=== PATIENT | female | born 1985 | race Hispanic/Latino ===

== ENCOUNTER → 2020-02-29 11:19 | Outpatient (CLI) | payer OTHER, SELFPAY ==
[2020-03-01 20:31] LABS: COVID19 Sendout Not Detected (Not Detect)
== END ==
PROVIDERS: PCP Family Medicine; Visit Provider Nurse Practitioner
DX: Z11.59 Encounter for screening for other viral diseases (principal)
CPT/HCPCS: 87635

== ENCOUNTER 2020-03-03 08:56 | Day surgery (SDC) | payer OTHER, SELFPAY ==
--- NOTE | 2020-03-03 | PATH_ITS ---
[facility] Accession Number: [id number] . 01 Material submitted: . PART A: small bowel - SMALL BOWEL PART B: gastrointestinal site - GASTRIC . 02 Diagnosis: A. Small Bowel: Patchy, mild intraepithelial lymphocytes (up to approximately 10 lymphocytes per 100 enterocytes); nonspecific. Please see comment. . B. Gastric: Gastric antral and body-type mucosa with mild chronic active gastritis. Negative for Helicobacter organisms by immunohistochemistry. Negative for intestinal metaplasia. Negative for dysplasia and malignancy. [facility] 03/05/2020 1448 Local . 02 Comment: A. While sections demonstrate patchy intraepithelial lymphocytosis, the numbers of lymphocytes are insufficient for a histomorphologic diagnosis of celiac sprue. There is no evidence of active inflammation, granulomas, regions of dysplasia or malignancy. . 02 Electronically signed: . Mona Espino MD, Pathologist NPI- [id number] . 01 Gross description: . Part A: SMALL BOWEL: Received in formalin are 2 fragment(s) of sargent, soft tissue measuring 0.1 x 0.1 x 0.1 cm to 0.2 x 0.2 x 0.1 cm submitted entirely in 1 cassette(s) Part B: GASTRIC: Received in formalin are 2 fragment(s) of sargent, soft tissue measuring 0.1 x 0.1 x 0.1 cm to 0.2 x 0.2 x 0.2 cm submitted entirely in 1 cassette(s) /SURYA 03/04/2020 0158 Local . 02 Microscopic: . B. An immunohistochemical stain was performed to evaluate for Helicobacter organisms and is negative. The control stain showed appropriate reactivity. . * This test was developed and its performance characteristics determined by [employer]. It has not been cleared or approved by the U.S. Food and Drug Administration. The FDA has determined that such clearance or approval is not necessary. This test is used for clinical purposes. It should not be regarded as investigational or for research. . 02 Pathologist provided ICD-10: K29.70 . 02 CPT . 977805, 847258, S24050 Performed at: 01 [facility] [address] [id number] MD Baltazar Rosas MD Phone: [phone] Performed at: 02 [facility] [address] [place] [id number] MD Odalys Coronado MD Phone: [phone]
[2020-03-03 09:37] VITALS: BP 106/69; PULSE 83; RESP 16; TEMP 36.6; O2SAT 98; BMI 29.4
[2020-03-03] MEDS: fentaNYL 250 MCG/5 ML INJ IV (10:27)
[2020-03-03] MEDS: MIDAZOLAM 5 MG/5 ML VIAL IV ×7 (10:27→10:36)
--- NOTE | 2020-03-03 10:30 | PM.HP.1 ---
History of Present Illness History of Present Illness Date Patient Seen: 03/03/20 Time Patient Seen: 10:30 Chief complaint: EGD W/POSS BX W/REFLUX Narrative: Reflux diarrhea and bloating rule out esophagitis rule out celiac disease Patient History Family & Social History Social History: household members spouse Tobacco & Substance use: Smoking Status Never smoker alcohol intake frequency holiday/special occasion Substance Use Type does not use Meds Home Medications and Allergies Home Medications Medication Instructions Recorded Confirmed Type esomeprazole magnesium [Nexium] 40 mg PO DAILY 03/03/20 03/03/20 History fluticasone propionate [Flonase 2 spray INTRANASAL DAILY 03/03/20 03/03/20 History Allergy Relief] Allergies Allergy/AdvReac Type Severity Reaction Status Date / Time No Known Drug Allergies Allergy Verified 03/03/20 09:35 Exam Vital Signs (past 8 hours): - 03/03/20 09:37 Temperature 97.9 F Pulse Rate 83 Respiratory Rate 16 Blood Pressure 106/69 Pulse Oximetry 98 Oxygen Delivery Method Room Air Narrative Exam Narrative: Oropharynx free of lesions Chest clear to auscultation percussion Cardiac exam reveals no S3 or murmur Assessment & Plan Assessment & Plan narrative: History of reflux loose stools and bloating related GE reflux disease with ulceration rule out celiac disease. Risks, benefits, alternatives have been explained for an upper endoscopy.
--- NOTE | 2020-03-03 10:32 | PM.OP.ENDO ---
Operative Date/Time/Diagnoses Date of procedure: 03/03/20 Time of procedure: 10:32 Pre-op diagnosis: See indication and findings Procedure & Clinicians Study performed: EGD with biopsy Same procedure as scheduled: Yes Indications: G reflux and loose stools Surgeon: Jason Johnson Procedure Notes Procedure in detail: After informed consent was obtained the patient was placed in left lateral decubitus position. The video upper scope was placed into the oropharynx and with the patient's help swelled the esophagus. The esophagus stomach and duodenum were carefully examined. On withdrawal retroflexed view the GE junction was performed. The scope was removed. The patient tolerated procedure well. Blood loss none Complications none Sedation Total sedation time 12 minutes Versed 8 mg fentanyl 100 mg IV titration Findings 1. Normal esophagus with completely normal squamocolumnar junction 2. Mild gastric erythema biopsies taken to rule out Helicobacter 3. Normal duodenal bulb and sweep biopsies taken to rule out celiac. Patient should follow-up at least by telephone with Maira Zavala to review biopsies.
[2020-03-03 10:44] VITALS: BP 107/69; PULSE 101; RESP 16; TEMP 36.9; O2SAT 95
[2020-03-03 10:49] VITALS: BP 95/48; PULSE 99; RESP 14; TEMP 36.9; O2SAT 95
[2020-03-03 10:53] VITALS: BP 106/67; PULSE 95; RESP 15; TEMP 36.8; O2SAT 96
[2020-03-03 11:00] VITALS: BP 106/73; PULSE 98; RESP 22; TEMP 36.6; O2SAT 97
[2020-03-03 11:10] VITALS: BP 97/67; PULSE 90; RESP 16; TEMP 36.9; O2SAT 97
== END 2020-03-03 11:25 | disposition home or self-care (01) ==
PROVIDERS: PCP Family Medicine; Referring Provider Family Medicine; Visit Provider Internal Medicine Gastroenterology
PROC: 0DJ08ZZ Inspection of Upper Intestinal Tract, Via Natural or Artificial Opening Endoscopic (ICD-10-PCS; CPT 43235; principal; 2020-03-03 10:00)
DX: R19.7 Diarrhea, unspecified (principal); K21.9 Gastro-esophageal reflux disease without esophagitis; K29.50 Unspecified chronic gastritis without bleeding
CPT/HCPCS: 43239; J2250; J3010

== ENCOUNTER → 2020-07-12 13:48 | Outpatient (CLI) | payer OTHER, SELFPAY ==
[2020-07-12 15:34] LABS: COVID19 -Nasal RAPID Negative (Negative)
== END ==
PROVIDERS: PCP Family Medicine; Visit Provider Physician Assistant
DX: Z11.59 Encounter for screening for other viral diseases (principal)
CPT/HCPCS: 87635; C9803

== ENCOUNTER 2020-07-14 09:28 | Day surgery (SDC) | payer OTHER, SELFPAY ==
[2020-07-14] VITALS (7 sets, daily range): BP systolic 92–116; BP diastolic 58–73; PULSE 90–113; RESP 15–20; TEMP 36.3–37; O2SAT 97–100; BMI 29.2
--- NOTE | 2020-07-14 | PATH_ITS ---
[facility] Accession Number: [id number] . 01 Material submitted: . colon - RANDOM BIOPSIES . 02 Diagnosis: Random Colon, Biopsies: Colonic mucosa with no diagnostic abnormality. Negative for active, chronic, and microscopic colitis. Negative for dysplasia and malignancy. . [facility] 07/19/2020 1215 Local . 02 Electronically signed: . Odalys Coronado MD, Pathologist NPI- [id number] . 01 Gross description: . RANDOM BIOPSIES: Received in formalin are multiple fragment(s) of sargent, soft tissue measuring 1.0 x 0.7 x 0.2 cm in aggregate submitted entirely in 1 cassette(s) /QBJ 07/15/2020 0815 Local . 02 Pathologist provided ICD-10: R19.7 . 02 CPT . 736007 Performed at: 01 [facility] [address] [id number] MD Baltazar Rosas MD Phone: [phone] Performed at: 02 [facility] [address] [place], [place] [id number] MD Odalys Coronado MD Phone: [phone]
[2020-07-14] MEDS: SODIUM CHLORIDE 0.9% 1,000 ML 70 ML IV (10:00)
--- NOTE | 2020-07-14 11:00 | PM.HP.1 ---
History of Present Illness History of Present Illness Date Patient Seen: 07/14/20 Time Patient Seen: 10:55 Chief complaint: DX COLONOSCOPY Narrative: Patient is a very pleasant 34-year-old female who presented for colonoscopy. She was last evaluated on July 05, 2020 for diarrhea. She states her symptoms have improved somewhat with fiber supplementation but she continues to have breakthrough symptoms. Patient History Family & Social History Social History: household members spouse Tobacco & Substance use: Smoking Status Never smoker alcohol intake frequency holiday/special occasion Substance Use Type does not use Meds Home Medications and Allergies Home Medications Medication Instructions Recorded Confirmed Type esomeprazole magnesium [Nexium] 40 mg PO DAILY 03/03/20 03/03/20 History fluticasone propionate [Flonase 2 spray INTRANASAL DAILY 03/03/20 03/03/20 History Allergy Relief] Allergies Allergy/AdvReac Type Severity Reaction Status Date / Time No Known Drug Allergies Allergy Verified 03/03/20 09:35 Review of Systems Review of Systems ROS: Yes All systems reviewed with the patient and are negative except as otherwise documented Exam Vital Signs (past 8 hours): - 07/14/20 09:56 Temperature 97.3 F L Pulse Rate 106 H Respiratory Rate 20 Blood Pressure 116/73 Pulse Oximetry 98 Oxygen Delivery Method Room Air Const General: cooperative, healthy appearing, comfortable, well developed and well groomed Nutritional Appearance: average body habitus HENMT Head: normocephalic and atraumatic Resp Effort & Inspection: normal respiratory effort, able to speak in complete sentences and abnormal respiratory pattern Auscultation: clear to auscultation bilaterally Cardio Rate: regular rate Rhythm: regular rhythm Heart Sounds: S1 normal and S2 normal GI Palpation: soft Auscultation: normal bowel sounds Extrem Right lower extremity: no edema Left lower extremity: no edema Assessment & Plan Assessment & Plan narrative: 1. Diarrhea Colonoscopy today, further recommendations to follow
[2020-07-14] MEDS: MIDAZOLAM 5 MG/5 ML VIAL IV (11:09)
[2020-07-14] MEDS: fentaNYL 250 MCG/5 ML INJ IV (11:18)
--- NOTE | 2020-07-14 11:36 | P.OP.ENDO_ITS ---
Operative Date/Time/Diagnoses Date of procedure: 07/14/20 Time of procedure: 11:03 Procedure Notes Procedure in detail: Surgeon: Chantale Aguiar DO Procedure: Colonoscopy with random colon biopsy Preoperative diagnosis: 1. Diarrhea Postoperative diagnosis: 1. Normal appearing colonic mucosa, random biopsies to rule out microscopic colitis 2. Normal-appearing terminal ileum 3. Diverticulosis in the sigmoid and ascending colon 4. Grade 1 internal hemorrhoids Medications: Conscious sedation using 5 mg IV of Midazolam and 175 mcg IV of Fentanyl Preanesthesia Assessment An H and P was performed/updated and the Px?s ASA class is 1. The procedure was discussed in detail with the patient. The potential risks and complications including infection, bleeding, missed lesions, perforation, need for surgery in case of perforation, prolonged hospital stay, and were explained. A brief question and answer period was allotted and once all questions were answered, informed consent was obtained. The patient was brought back to the procedure room and placed on standard monitoring. The patient?s vital signs were monitored continuously throughout the entire procedure. Prior to starting, a timeout was performed to confirm the patient?s identity, allergies, medications, and procedure. Procedure in detail The patient was placed in left lateral decubitus position and once adequate sedation was obtained a OLAYINKA was performed. The digital rectal examination did not reveal any palpable lesions. The tip of the colonoscope was placed in the anal canal and advanced with some difficulty due to tortuous colon, manual pressure was applied. We were able to advance the scope all the way to the cecum which was identified by the appendiceal orifice and the ileocecal valve. The terminal ileum was intubated and was unremarkable. Careful examination of all paul of the colon was performed with irrigation of any residual stool. Colon mucosa appeared unremarkable, random colon biopsies were obtained to rule out microscopic colitis Diverticulosis were noted scattered throughout the sigmoid and ascending colon. Grade 1 internal hemorrhoids were noted on retroflexion The patient tolerated the procedure well and will be [place] back [place] [facility] once criteria are met. The prep was judged to be good/excellent and adequate to identify polyps less than 5 mm. The withdrawal time was 11min. The total physician intraservice time was 23min. Complications There were no complications and estimated blood loss was minimal. Recommendations: Resume previous diet Continue outPx medications Follow up pathology results Repeat colonoscopy for screening in 10 years Office follow up as previously scheduled An emergency contact number was given to the patient for any complications related to the procedure
--- NOTE | 2020-07-14 12:09 | SUR.PHASEII ---
Pt up and ambulating gait steady, getting dressed now.
--- NOTE | 2020-07-14 15:05 | SUR.PHASEII ---
1205-Pt dcd via wc in stable condition with no c/o and all dc instructions.
== END 2020-07-14 12:05 | disposition home or self-care (01) ==
PROVIDERS: PCP Family Medicine; Referring Provider Student in an Organized Health Care Education/Training Program; Visit Provider Student in an Organized Health Care Education/Training Program
PROC: 0DJD8ZZ Inspection of Lower Intestinal Tract, Via Natural or Artificial Opening Endoscopic (ICD-10-PCS; CPT 45378; principal; 2020-07-14 10:30)
DX: R19.7 Diarrhea, unspecified (principal); K57.30 Diverticulosis of large intestine without perforation or abscess without bleeding; K64.0 First degree hemorrhoids
CPT/HCPCS: 45378; J2250; J3010

== ENCOUNTER 2021-01-10 09:45 | Emergency (ER) | payer OTHER, SELFPAY ==
[2021-01-10 10:18] VITALS: BP 119/63; PULSE 85; RESP 14; TEMP 36.4; O2SAT 89
[2021-01-10 14:35] LABS: Add Manual Diff / Slide Review NO; Basophils Absolute Auto 100 /uL (0-100); Basophils Percent Auto 0.7 % (0-2); Eosinophils Absolute Auto 0 /uL (0-450); Eosinophils Percent Auto 0.2 % (2-4); Hematocrit 40.5 % (36-46); Hemoglobin 13.2 g/dL (12.0-16.0); Lymphocytes Absolute Auto 2600 /uL (1100-4500); Lymphocytes Percent Auto 25.1 % (25-40); Mean Corpuscular HGB Conc 32.7 % (30-36); Mean Corpuscular Hemoglobin 27.2 PG (26-34); Mean Corpuscular Volume 83.2 fL (80-100); Monocytes Absolute Auto 500 /uL (0-900); Monocytes Percent Auto 4.7 % (3-14); Neutrophils Absolute Auto 7300 /uL (1500-7000); Neutrophils Percent Auto 69.3 % (50-75); Platelet Count 403 X10^3/uL (150-400); Red Blood Cell Count 4.87 X10^6/uL (4.0-5.2); White Blood Cell Count 10.5 X10^3/uL (4.5-11.0)
[2021-01-10] MEDS: SODIUM CHLORIDE 0.9% 1,000 ML 1000 ML IV (14:50)
[2021-01-10] MEDS: ONDANSETRON 4 MG/2 ML INJ IV (14:50)
[2021-01-10 14:54] LABS: Alanine Aminotransferase 68 IU/L (<35); Albumin 5.2 g/dL (3.5-5.0); Albumin Globulin Ratio 1.3 (1.0-2.8); Alkaline Phosphatase 75 U/L (38-126); Aspartate Aminotransferase 54 IU/L (14-36); BUN Creatinine Ratio 12.5 (6-22); Bilirubin Total 0.7 mg/dL (0.2-1.3); Blood Urea Nitrogen 6 mg/dL (7-17); Calcium 10.4 mg/dL (8.4-10.2); Carbon Dioxide 26 mmol/L (22-32); Chloride 99 mmol/L (98-107); Estimated Glomerular Filt Rate > 60.0 mL/min (>60); Globulin 4.1 g/dL (1.7-4.1); Glucose 101 mg/dL (70-100); HEMOLYSIS < 15 (0-50); Potassium 3.8 mmol/L (3.4-5.1); Sodium 139 mmol/L (137-145); Total Protein 9.3 g/dL (6.3-8.2)
--- NOTE | 2021-01-10 15:56 | ED.NAVMDI ---
HPI - Nausea/Vomiting/Diarrhea General Chief complaint: Nausea/Vomiting/Diarrhea Stated complaint: IBS cant eat Time Seen by Provider: 01/10/21 15:56 Source: patient Mode of arrival: Ambulatory Limitations: no limitations History of Present Illness HPI Narrative: This is a 35-year-old female comes emergency department with complaint of nausea and vomiting as well as diarrhea and abdominal pain that is been intermittent for several months but has been worse for the last several days. Patient states she has been able to keep anything down orally. She denies fevers or chills. She has had nausea and vomiting. She has had diarrhea intermittently denies any melena or hematochezia. She describes her abdominal pain as being more general to but is worse on palpation in the upper abdomen. She denies any back or flank pain. No dysuria, urgency or frequency. No vaginal bleeding or discharge. Patient has had an EGD and scope which she were told were negative except for diverticulosis. They initially thought her diarrhea was from her cholecystectomy but this continued. She has been following with Dr. Robles from [facility] and was taking Metamucil but this would make her diarrheal symptoms worse. Bentyl which was helpful but gave her some side effects so it was stopped. She denies any surgeries besides cholecystectomy. No tobacco, alcohol or illicit. No allergies to medications. Related Data Home Medications Medication Instructions Recorded Confirmed esomeprazole magnesium [Nexium] 40 mg PO DAILY 03/03/20 03/03/20 fluticasone propionate [Flonase 2 spray INTRANASAL DAILY 03/03/20 03/03/20 Allergy Relief] Previous Rx's Medication Instructions Recorded meloxicam 7.5 mg PO BID #20 tab 01/10/21 ondansetron 4 mg PO QID PRN #10 tab 01/10/21 prednisone 50 mg PO DAILY #4 tab 01/10/21 Allergies Allergy/AdvReac Type Severity Reaction Status Date / Time No Known Drug Allergies Allergy Verified 01/10/21 10:23 Review of Systems Review of Systems ROS Unobtainable: All systems reviewed & are unremarkable except as noted in HPI and below Patient History Social History household members: spouse Smoking Status: Never smoker Smoking Status: Never smoker alcohol intake frequency: holidays/special occasions only Substance Use Type: does not use Exam Narrative Exam Narrative: GENERAL: Alert and oriented x three, well nourished female in mild distress. HEENT: Head normocephalic, atraumatic, EOMI, pupils reactive, face symmetric, moist mucous membranes NECK: Supple, full range of motion CARDIOVASCULAR: Regular rate and rhythm without murmurs, rubs or gallops. RESPIRATORY: Breath sounds equal bilaterally, no wheezes rales or rhonchi. ABDOMEN: Soft, generalized tenderness greatest at the epigastric region. Normoactive bowel sounds all 4 quadrants. No guarding or rebound, rigidity, no mass : No CVA tenderness EXTREMITIES: Normal range of motion, no clubbing or edema. Neurovascularly intact NEUROLOGICAL: Cranial nerves II through XII grossly intact. Moving all extremities SKIN: Warm, dry, no petechiae, no rashes or lesions. Initial Vital Signs Initial Vital Signs: Vital Signs Temperature 97.5 F L 01/10/21 10:18 Pulse Rate 85 01/10/21 10:18 Respiratory Rate 14 01/10/21 10:18 Blood Pressure 119/63 01/10/21 10:18 Pulse Oximetry 89 L 01/10/21 10:18 Course Orders Ordered: ED Orders 01/10/21 14:25 Complete Blood Count AUTO DIFF Stat Comprehensive Metabolic Panel Stat Lipase Stat 01/10/21 16:11 CT abdomen pelvis w con Stat Discontinued Medications Sodium Chloride (Normal Saline 0.9%) 1,000 mls @ 1,000 mls/hr IV BOLUS ONE Stop: 01/10/21 13:19 Last Infusion: 01/10/21 15:55 Dose: 0 mls/hr Documented by: Admin: 01/10/21 14:50 Dose: 1,000 mls/hr Documented by: ORIANA Ondansetron HCl (Ondansetron 4 Mg/2 Ml Inj) 4 mg IV NOW ONE Stop: 01/10/21 12:21 Last Admin: 01/10/21 14:50 Dose: 4 mg Documented by: ORIANA Prednisone (Prednisone 20 Mg Tablet) 60 mg PO NOW ONE Stop: 01/10/21 18:00 Last Admin: 01/10/21 18:06 Dose: 60 mg Documented by: ORIANA Vital Signs Vital signs: Vital Signs - 8 hr 01/10/21 16:11 Temperature 99.1 F Pulse Rate 85 Respiratory Rate 16 Blood Pressure 134/63 Pulse Oximetry 99 MDM - Nausea/Vomiting/Diarrhea Lab Data Attestation: I reviewed the patient's lab results. Result diagrams: 01/10/21 14:25 01/10/21 14:25 Labs: Lab Results 01/10/21 01/10/21 01/10/21 Range/Units 14:25 14:25 14:25 WBC 10.5 (4.5-11.0) X10^3/uL RBC 4.87 (4.0-5.2) X10^6/uL Hgb 13.2 (12.0-16.0) g/dL Hct 40.5 (36-46) % MCV 83.2 (80-100) fL MCH 27.2 (26-34) PG MCHC 32.7 (30-36) % RDW 14.0 (11.6-14.8) % Plt Count 403 H (150-400) X10^3/uL Neut % (Auto) 69.3 (50-75) % Lymph % (Auto) 25.1 (25-40) % [place] % (Auto) 4.7 (3-14) % Eos % (Auto) 0.2 L (2-4) % Baso % (Auto) 0.7 (0-2) % Neut # (Auto) 7300 H (9965-7411) /uL Lymph # (Auto) 2600 (9111-0027) /uL [place] # (Auto) 500 (0-900) /uL Eos # (Auto) 0 (0-450) /uL Baso # (Auto) 100 (0-100) /uL Sodium 139 (137-145) mmol/L Potassium 3.8 (3.4-5.1) mmol/L Chloride 99 (98-107) mmol/L Carbon Dioxide 26 (22-32) mmol/L BUN 6 L (7-17) mg/dL Creatinine 0.48 L (0.52-1.04) mg/dL Estimated GFR > 60.0 (>60) mL/min BUN/Creatinine Ratio 12.5 (6-22) Glucose 101 H (70-100) mg/dL Calcium 10.4 H (8.4-10.2) mg/dL Total Bilirubin 0.7 (0.2-1.3) mg/dL AST 54 H (14-36) IU/L ALT 68 H (<35) IU/L Alkaline Phosphatase 75 (38-126) U/L Total Protein 9.3 H (6.3-8.2) g/dL Albumin 5.2 H (3.5-5.0) g/dL Globulin 4.1 (1.7-4.1) g/dL Albumin/Globulin Ratio 1.3 (1.0-2.8) Lipase 41 (23-300) U/L Point of Care Testing Test Results Negative Urine Dip Bedside Urine Glucose Negative Bedside Urine Bilirubin - Negative Bedside Urine Ketone - Negative Urine Specific [place] 1.010 Bedside Urine Occult Blood +/- Bedside Urine pH 6.5 Bedside Urine Protein - Negative Bedside Urine Urobilinogen - Negative Bedside Urine Nitrite - Negative Bedside Urine Leukocytes - Negative Esterase Imaging Data CT scan - abdomen/pelvis: Radiologist's Impression: [address] [id number] Scan ReportSigned Patient: Radha Macedo [facility]#: [id number]: 1985Acct:[id number]/Sex: 35 / FDate of Service: 01/10/21Loc: EDAccession Number: [id number] Procedure: CT abdomen pelvis w con Ordering Provider: Lena Tracey D.O. ROCEDURE: CT ABDOMEN PELVIS W CON INDICATIONS: acute on chronic abd pain. hx diverticulosis on scope TECHNIQUE: After the administration of intravenous contrast, axial sections acquired from the lung bases to the pubic symphysis. Coronal and sagittal reformats were performed. For radiation dose reduction, the following was used: automated exposure control, adjustment of mA and/or kV according to patient size. COMPARISON: None. FINDINGS: Image quality: Excellent. Lung bases: Unremarkable. Heart: No significant findings. ABDOMEN: Liver: There is diffuse hypoattenuation consistent with fatty infiltration with mild relative sparing along the gallbladder fossa. Gallbladder: Surgically absent. Biliary ducts: Unremarkable. Pancreas: Unremarkable. Spleen: Unremarkable. Adrenal Glands: Unremarkable. Kidneys and Ureters: Unremarkable. Stomach and Bowel: Stomach and small bowel loops demonstrate normal caliber and wall thickness. No evidence of appendicitis. There is colonic diverticulosis without definite acute diverticular inflammatory changes to suggest diverticulitis. However, there is mild segmental wall thickening within the descending and sigmoid colon with mild pericolonic fat stranding compatible with a mild colitis. Peritoneum: No abnormal intraperitoneal fluid. No free air. Ventral Wall: No hernias. Abdominal Nodes: No retroperitoneal or mesenteric adenopathy by size criteria. Vessels: Aorta and inferior vena cava are normal in size. PELVIS: Pelvic Organs: There is a right ovarian cyst measuring up to 2.8 cm likely representing a follicular cyst. Uterus and ovaries appear within normal size limits. Bladder: Unremarkable. Pelvic Nodes: No enlarged lymph nodes. Miscellaneous: No hernias are seen. Bones: Unremarkable. IMPRESSION: 1. Mild segmental wall thickening in the descending and sigmoid colon with mild pericolonic fat stranding compatible with a mild colitis. 2. Colonic diverticulosis without definite acute diverticulitis. 3. Hepatic steatosis Dictated by: Baltazar Pan M.D. on 01/10/2021 at 17:13 Approved by: Baltazar Pan M.D. on 01/10/2021 at 17:15 MDM Narrative Medical decision making narrative: This is a 35-year-old female with abdominal pain, nausea and vomiting and diarrhea been intermittent over long period of time but worse over the last several days. Patient has had colonoscopy and EGD in the past which was negative about 9 months ago. This most recent episode of symptoms have only been for few days. Patient came in today because she is unable to keep fluids or food down. Patient does not show major lab abnormalities, after discussion about radiation exposure and risks and benefits patient elects to proceed with CT abdomen pelvis. There does appear to be some colitis on her imaging. After discussion plan for steroids for short-term treatment and re-evaluation with her primary care in the next week for recheck. 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 All questions were answered, prescription for Zofran came a steroid as well as an NSAID medication as patient prefers this over any narcotic pain medicine. Discharge Plan Departure Patient Disposition: Home Clinical Impression: Colitis, Hepatic steatosis Instructions: DI for Colitis Activity Restrictions/Additional Instructions: Follow up with your physician in the next 3-5 days for recheck. Your imaging today shows colitis as well as hepatic steatosis or fatty liver. Take steroids daily until gone. Take zofran every 6 hours as needed for nausea Take pain medication as prescribed. Please return for fevers greater 100.4 F, rapidly worsening abdominal pain, persistent vomiting, black or bloody stools, lightheadedness or passing out, new chest pain or shortness of breath or other new or concerning symptoms. Prescriptions: New prednisone 50 mg tablet 50 mg PO DAILY Qty: 4 RF: 0 meloxicam 7.5 mg tablet 7.5 mg PO BID Qty: 20 RF: 0 ondansetron 4 mg tablet,disintegrating 4 mg PO QID PRN (Reason: nausea and vomiting) Qty: 10 RF: 0 No Action esomeprazole magnesium [Nexium] 40 mg Capsule,Delayed Release(Dr/Ec) 40 mg PO DAILY RF: 0 fluticasone propionate [Flonase Allergy Relief] 50 mcg/actuation Boley,Suspension 2 spray INTRANASAL DAILY RF: 0 Referrals: Colette Girard MD [Primary Care Provider] -
[2021-01-10 16:11] VITALS: BP 134/63; PULSE 85; RESP 16; TEMP 37.3; O2SAT 99
--- NOTE | 2021-01-10 16:11 | DI.CT.S_ITS ---
P. ROCEDURE: CT ABDOMEN PELVIS W CON INDICATIONS: acute on chronic abd pain. hx diverticulosis on scope TECHNIQUE: After the administration of intravenous contrast, axial sections acquired from the lung bases to the pubic symphysis. Coronal and sagittal reformats were performed. For radiation dose reduction, the following was used: automated exposure control, adjustment of mA and/or kV according to patient size. COMPARISON: None. FINDINGS: Image quality: Excellent. Lung bases: Unremarkable. Heart: No significant findings. ABDOMEN: Liver: There is diffuse hypoattenuation consistent with fatty infiltration with mild relative sparing along the gallbladder fossa. Gallbladder: Surgically absent. Biliary ducts: Unremarkable. Pancreas: Unremarkable. Spleen: Unremarkable. Adrenal Glands: Unremarkable. Kidneys and Ureters: Unremarkable. Stomach and Bowel: Stomach and small bowel loops demonstrate normal caliber and wall thickness. No evidence of appendicitis. There is colonic diverticulosis without definite acute diverticular inflammatory changes to suggest diverticulitis. However, there is mild segmental wall thickening within the descending and sigmoid colon with mild pericolonic fat stranding compatible with a mild colitis. Peritoneum: No abnormal intraperitoneal fluid. No free air. Ventral Wall: No hernias. Abdominal Nodes: No retroperitoneal or mesenteric adenopathy by size criteria. Vessels: Aorta and inferior vena cava are normal in size. PELVIS: Pelvic Organs: There is a right ovarian cyst measuring up to 2.8 cm likely representing a follicular cyst. Uterus and ovaries appear within normal size limits. Bladder: Unremarkable. Pelvic Nodes: No enlarged lymph nodes. Miscellaneous: No hernias are seen. Bones: Unremarkable. IMPRESSION: 1. Mild segmental wall thickening in the descending and sigmoid colon with mild pericolonic fat stranding compatible with a mild colitis. 2. Colonic diverticulosis without definite acute diverticulitis. 3. Hepatic steatosis Dictated by: Baltazar Pan M.D. on 01/10/2021 at 17:13 Approved by: Baltazar Pan M.D. on 01/10/2021 at 17:15
[2021-01-10 16:17] LABS: Lipase 41 U/L (23-300)
[2021-01-10] MEDS: predniSONE 20 MG TABLET 60 MG PO (18:06)
== END 2021-01-10 18:12 | disposition home or self-care (01) ==
PROVIDERS: Emergency Provider Emergency Medicine; PCP Family Medicine
DX: K52.9 Noninfective gastroenteritis and colitis, unspecified (principal); K76.0 Fatty (change of) liver, not elsewhere classified; R10.9 Unspecified abdominal pain
CPT/HCPCS: 36415; 74177; 80053; 81003; 81025; 83690; 85025; 96361; 96374; 99284; J2405; Q9967

== ENCOUNTER 2021-01-16 19:51 | Emergency (ER) | payer OTHER, SELFPAY ==
[2021-01-16 20:18] VITALS: BP 119/71; PULSE 87; RESP 18; TEMP 36.7; O2SAT 99; BMI 29.2
[2021-01-16 21:38] VITALS: PULSE 78; O2SAT 100
[2021-01-16 21:57] LABS: Add Manual Diff / Slide Review NO; Basophils Absolute Auto 100 /uL (0-100); Basophils Percent Auto 0.4 % (0-2); Eosinophils Absolute Auto 100 /uL (0-450); Eosinophils Percent Auto 0.7 % (2-4); Hemoglobin 12.5 g/dL (12.0-16.0); Lymphocytes Absolute Auto 3800 /uL (1100-4500); Lymphocytes Percent Auto 30.8 % (25-40); Mean Corpuscular HGB Conc 32.8 % (30-36); Mean Corpuscular Hemoglobin 27.2 PG (26-34); Monocytes Absolute Auto 500 /uL (0-900); Monocytes Percent Auto 3.8 % (3-14); Neutrophils Absolute Auto 7900 /uL (1500-7000); Neutrophils Percent Auto 64.3 % (50-75); Platelet Count 355 X10^3/uL (150-400); Red Blood Cell Count 4.58 X10^6/uL (4.0-5.2); Red Cell Distribution Width 13.8 % (11.6-14.8); White Blood Cell Count 12.3 X10^3/uL (4.5-11.0)
[2021-01-16] MEDS: ONDANSETRON 4 MG/2 ML INJ IV (21:58)
[2021-01-16 22:00] VITALS: PULSE 70; RESP 15; O2SAT 99
[2021-01-16 22:06] LABS: Alanine Aminotransferase 54 IU/L (<35); Albumin 4.4 g/dL (3.5-5.0); Albumin Globulin Ratio 1.4 (1.0-2.8); Alkaline Phosphatase 76 U/L (38-126); Aspartate Aminotransferase 37 IU/L (14-36); BUN Creatinine Ratio 17.2 (6-22); Bilirubin Total 0.7 mg/dL (0.2-1.3); Blood Urea Nitrogen 10 mg/dL (7-17); Calcium 9.6 mg/dL (8.4-10.2); Carbon Dioxide 26 mmol/L (22-32); Chloride 101 mmol/L (98-107); Estimated Glomerular Filt Rate > 60.0 mL/min (>60); Globulin 3.2 g/dL (1.7-4.1); Glucose 93 mg/dL (70-100); HEMOLYSIS < 15 (0-50); Lipase 71 U/L (23-300); Potassium 3.5 mmol/L (3.4-5.1); Sodium 137 mmol/L (137-145); Total Protein 7.6 g/dL (6.3-8.2)
--- NOTE | 2021-01-16 22:18 | ED.ABDPAIN ---
HPI - Abdominal Pain General Chief Complaint: Abdominal Pain Stated Complaint: Abd Pain and Nausea Time Seen by Provider: 01/16/21 21:41 Source: patient Mode of arrival: Family Vehicle Limitations: no limitations History of Present Illness HPI narrative: Patient is a 35-year-old female who presents with ongoing abdominal pain for the last 10 days. She was seen evaluated here 1 week ago where she had a abdominal CT and blood work diagnosed with enteritis. She has had at least 6 episodes of diarrhea today day and few episodes of vomiting. She has ongoing diarrhea from her cholecystectomy but does not typically have pain. She has a GI provider as well. She denies any fever or chills. She has not had any diarrhea in the emergency department does have increased leukocytosis today. MD complaint: abdominal pain Onset (ago): day(s) () Pain Consistency: intermittent Quality: cramping Related Data Home Medications Medication Instructions Recorded Confirmed esomeprazole magnesium [Nexium] 40 mg PO DAILY 03/03/20 03/03/20 fluticasone propionate [Flonase 2 spray INTRANASAL DAILY 03/03/20 03/03/20 Allergy Relief] Previous Rx's Medication Instructions Recorded meloxicam 7.5 mg PO BID #20 tab 01/10/21 ondansetron 4 mg PO QID PRN #10 tab 01/10/21 prednisone 50 mg PO DAILY #4 tab 01/10/21 ciprofloxacin HCl [Cipro] 500 mg PO BID #14 tab 01/16/21 metronidazole [Flagyl] 500 mg PO Q8H #21 tab 01/16/21 Allergies Allergy/AdvReac Type Severity Reaction Status Date / Time No Known Drug Allergies Allergy Verified 01/16/21 20:17 Review of Systems Review of Systems Narrative: GENERAL: Denies chills, fatigue, malaise, fever, sweats, travel HEENT: Denies sinus pain, ear pain, sore throat, difficulty swallowing, neck pain RESPIRATORY: Denies dyspnea, cough, wheezing, hemoptysis, sputum. CARDIOVASCULAR: Denies chest pain, palpitations, orthopnea, edema GASTROINTESTINAL: See HPI : Denies dysuria, frequency, incontinence, hematuria, urinary retention, flank pain. MUSCULOSKELETAL: Denies weakness, joint pain, or bony pain SKIN: No rash, no erythema, no pruritus NEUROLOGIC: Denies weakness, dizziness, headache, numbness, change in speech, confusion PSYCHIATRIC: No concerning psychosocial issues. 12 point review of systems is negative except for those stated above and HPI Patient History Social History household members: spouse Smoking Status: Never smoker Smoking Status: Never smoker alcohol intake frequency: holidays/special occasions only Substance Use Type: does not use Exam Initial Vital Signs Initial Vital Signs: Vital Signs Temperature 98.0 F 01/16/21 20:18 Pulse Rate 87 01/16/21 20:18 Respiratory Rate 18 01/16/21 20:18 Blood Pressure 119/71 01/16/21 20:18 Pulse Oximetry 99 01/16/21 20:18 GENERAL: A 35-year-old female overall appears well. She is having some mild discomfort HEENT: Head atraumatic,EOMI, pupils reactive, face symmetric, moist mucous membranes CARDIOVASCULAR: Regular rate and rhythm without murmurs, rubs or gallops. RESPIRATORY: Breath sounds equal bilaterally, no wheezes rales or rhonchi. ABDOMEN: Mild mid abdominal tenderness without guarding or rebound EXTREMITIES: Normal range of motion, no clubbing or edema. Neurovascularly intact NEUROLOGICAL: Alert and oriented x4.Normal gait and speech. SKIN: Warm, dry, no laceration, no petechiae, no rashes or lesions. Course Orders Ordered: ED Orders 01/16/21 21:50 Complete Blood Count AUTO DIFF Stat Comprehensive Metabolic Panel Stat Lipase Stat Discontinued Medications Ciprofloxacin (Ciprofloxacin 250 Mg Tablet) 500 mg PO NOW ONE Stop: 01/16/21 22:33 Last Admin: 01/16/21 22:43 Dose: 500 mg Documented by: KASI Ketorolac Tromethamine (Ketorolac 30 Mg/Ml Vial) 30 mg IV NOW ONE Stop: 01/16/21 22:33 Last Admin: 01/16/21 22:43 Dose: 30 mg Documented by: KASI Metronidazole (Metronidazole 500 Mg Tablet) 500 mg PO NOW ONE Stop: 01/16/21 22:33 Last Admin: 01/16/21 22:44 Dose: 500 mg Documented by: KASI Ondansetron HCl (Ondansetron 4 Mg/2 Ml Inj) 4 mg IV NOW ONE Stop: 01/16/21 21:41 Last Admin: 01/16/21 21:58 Dose: 4 mg Documented by: KASI Vital Signs Vital signs: Vital Signs - 8 hr 01/16/21 21:38 01/16/21 22:00 01/16/21 22:30 Pulse Rate 78 70 67 Respiratory Rate 15 12 Blood Pressure Pulse Oximetry 100 99 96 01/16/21 22:53 Pulse Rate 74 Respiratory Rate 20 Blood Pressure 121/57 L Pulse Oximetry 99 MDM - Abdominal Pain Lab Data Attestation: I reviewed the patient's lab results. Result diagrams: 01/16/21 21:50 01/16/21 21:50 Labs: Lab Results 01/16/21 01/16/21 Range/Units 21:50 21:50 WBC 12.3 H (4.5-11.0) X10^3/uL RBC 4.58 (4.0-5.2) X10^6/uL Hgb 12.5 (12.0-16.0) g/dL Hct 38.0 (36-46) % MCV 83.0 (80-100) fL MCH 27.2 (26-34) PG MCHC 32.8 (30-36) % RDW 13.8 (11.6-14.8) % Plt Count 355 (150-400) X10^3/uL Neut % (Auto) 64.3 (50-75) % Lymph % (Auto) 30.8 (25-40) % [place] % (Auto) 3.8 (3-14) % Eos % (Auto) 0.7 L (2-4) % Baso % (Auto) 0.4 (0-2) % Neut # (Auto) 7900 H (6130-7689) /uL Lymph # (Auto) 3800 (1727-4089) /uL [place] # (Auto) 500 (0-900) /uL Eos # (Auto) 100 (0-450) /uL Baso # (Auto) 100 (0-100) /uL Sodium 137 (137-145) mmol/L Potassium 3.5 (3.4-5.1) mmol/L Chloride 101 (98-107) mmol/L Carbon Dioxide 26 (22-32) mmol/L BUN 10 (7-17) mg/dL Creatinine 0.58 (0.52-1.04) mg/dL Estimated GFR > 60.0 (>60) mL/min BUN/Creatinine Ratio 17.2 (6-22) Glucose 93 (70-100) mg/dL Calcium 9.6 (8.4-10.2) mg/dL Total Bilirubin 0.7 (0.2-1.3) mg/dL AST 37 H (14-36) IU/L ALT 54 H (<35) IU/L Alkaline Phosphatase 76 (38-126) U/L Total Protein 7.6 (6.3-8.2) g/dL Albumin 4.4 (3.5-5.0) g/dL Globulin 3.2 (1.7-4.1) g/dL Albumin/Globulin Ratio 1.4 (1.0-2.8) Lipase 71 D (23-300) U/L MDM Narrative Medical decision making narrative: Patient had a CT done 1 week ago which did show enteritis. She has had ongoing diarrhea and vomiting consistent with a gastroenteritis. She has not had any episodes of diarrhea in the emergency department. At this time I see no need for further imaging. However with increased leukocytosis and continued pain and symptoms I do recommend antibiotics. Discharge Plan Departure Patient Disposition: Home Clinical Impression: Colitis Instructions: DI for Colitis Activity Restrictions/Additional Instructions: *You have been diagnosed with colitis *What to do: Recommend low-fiber diet at until your symptoms improve *Continue to take medications as directed--> SENT TO [facility] IN [place] Cipro 500 mg twice a day for 7 days Flagyl 500 mg 3 times a day for 7 days *Follow up with your primary care provider in 2-3 days *Return to ER if you should have increasing pain, diarrhea, fever inability to tolerate fluids or any new, worsening or concerning symptoms Prescriptions: New metronidazole [Flagyl] 500 mg tablet 500 mg PO Q8H Qty: 21 RF: 0 ciprofloxacin HCl [Cipro] 500 mg tablet 500 mg PO BID Qty: 14 RF: 0 No Action esomeprazole magnesium [Nexium] 40 mg Capsule,Delayed Release(Dr/Ec) 40 mg PO DAILY RF: 0 fluticasone propionate [Flonase Allergy Relief] 50 mcg/actuation [place],Suspension 2 spray INTRANASAL DAILY RF: 0 prednisone 50 mg tablet 50 mg PO DAILY Qty: 4 RF: 0 meloxicam 7.5 mg tablet 7.5 mg PO BID Qty: 20 RF: 0 ondansetron 4 mg tablet,disintegrating 4 mg PO QID PRN (Reason: nausea and vomiting) Qty: 10 RF: 0 Referrals: Colette Girard MD [Primary Care Provider] -
[2021-01-16 22:30] VITALS: PULSE 67; RESP 12; O2SAT 96
[2021-01-16] MEDS: KETOROLAC 30 MG/ML VIAL IV (22:43)
[2021-01-16] MEDS: CIPROFLOXACIN 250 MG TABLET 500 MG PO (22:43)
[2021-01-16] MEDS: metroNIDAZOLE 500 MG TABLET PO (22:44)
[2021-01-16 22:53] VITALS: BP 121/57; PULSE 74; RESP 20; O2SAT 99
--- NOTE | 2021-01-16 22:59 | PC.NURSE ---
Herbert offered at 1217
== END 2021-01-16 23:03 | disposition home or self-care (01) ==
PROVIDERS: Emergency Provider Emergency Medicine; PCP Family Medicine
DX: K52.9 Noninfective gastroenteritis and colitis, unspecified (principal)
CPT/HCPCS: 36415; 80053; 83690; 85025; 96374; 96375; 99284; J1885; J2405

== ENCOUNTER 2021-01-18 06:28 | Emergency (ER) | payer OTHER, SELFPAY ==
[2021-01-18 06:39] VITALS: BP 109/68; PULSE 88; RESP 20; TEMP 36.9; O2SAT 97; BMI 29.2
[2021-01-18 07:12] LABS: Add Manual Diff / Slide Review NO; Basophils Absolute Auto 0 /uL (0-100); Basophils Percent Auto 0.4 % (0-2); Eosinophils Absolute Auto 100 /uL (0-450); Eosinophils Percent Auto 0.7 % (2-4); Hematocrit 39.1 % (36-46); Hemoglobin 12.9 g/dL (12.0-16.0); Lymphocytes Absolute Auto 1800 /uL (1100-4500); Lymphocytes Percent Auto 17.9 % (25-40); Mean Corpuscular HGB Conc 33.1 % (30-36); Mean Corpuscular Hemoglobin 27.2 PG (26-34); Mean Corpuscular Volume 82.3 fL (80-100); Monocytes Absolute Auto 600 /uL (0-900); Monocytes Percent Auto 5.8 % (3-14); Neutrophils Absolute Auto 7500 /uL (1500-7000); Neutrophils Percent Auto 75.2 % (50-75); Platelet Count 384 X10^3/uL (150-400); Red Blood Cell Count 4.75 X10^6/uL (4.0-5.2); Red Cell Distribution Width 13.5 % (11.6-14.8); White Blood Cell Count 9.9 X10^3/uL (4.5-11.0)
--- NOTE | 2021-01-18 07:12 | ED_ITS ---
HPI - Nausea/Vomiting/Diarrhea General Chief complaint: Nausea/Vomiting/Diarrhea Stated complaint: diarrhea, vomiting Time Seen by Provider: 01/18/21 06:37 Source: patient and family Mode of arrival: Ambulatory Limitations: no limitations History of Present Illness HPI Narrative: Patient 3rd visit for tract will watery diarrhea for the past 2 weeks. Seen here January 10 as well as 2 days ago. Cipro Flagyl started 2 days ago. Patient has been on prednisone as well. CT scan done on 1st visit. No fever chills no cough cold congestion. No recent foreign travel and contaminated foods. No new medications or diet. No others in family with symptoms. Stool sample sent yesterday at [facility] in [place]. Results pending. Patient did contact her GI doctor a week ago and is scheduling for colonoscopy. Related Data Home Medications Medication Instructions Recorded Confirmed esomeprazole magnesium [Nexium] 40 mg PO DAILY 03/03/20 03/03/20 fluticasone propionate [Flonase 2 spray INTRANASAL DAILY 03/03/20 03/03/20 Allergy Relief] Previous Rx's Medication Instructions Recorded meloxicam 7.5 mg PO BID #20 tab 01/10/21 ondansetron 4 mg PO QID PRN #10 tab 01/10/21 prednisone 50 mg PO DAILY #4 tab 01/10/21 ciprofloxacin HCl [Cipro] 500 mg PO BID #14 tab 01/16/21 metronidazole [Flagyl] 500 mg PO Q8H #21 tab 01/16/21 diphenoxylate-atropine [Lomotil] 1 tab PO BID PRN #10 tab 01/18/21 Allergies Allergy/AdvReac Type Severity Reaction Status Date / Time No Known Drug Allergies Allergy Verified 01/16/21 20:17 Review of Systems Review of Systems Narrative: GENERAL: Denies chills, fatigue, malaise, fever, sweats. HEENT: Denies sinus pain, ear pain, sore throat RESPIRATORY: Denies dyspnea, cough CARDIOVASCULAR: Denies chest pain, palpitations GASTROINTESTINAL: Complains nausea, vomiting, abdominal pain : Denies dysuria, frequency, hematuria MUSCULOSKELETAL: denies muscle or bony pain SKIN: Denies rash, skin lesions NEUROLOGIC: Denies weakness, numbness ROS Unobtainable: All systems reviewed & are unremarkable except as noted in HPI and below Patient History Social History household members: spouse Smoking Status: Never smoker Smoking Status: Never smoker alcohol intake frequency: holidays/special occasions only Substance Use Type: does not use Exam Narrative Exam Narrative: GENERAL: in no distress, not toxic not dyspneic HEAD: Normocephalic. EYES: Pupils equal round No scleral icterus. No injection no discharge ENT: Mucous membranes moist. NECK: Trachea midline. CARDIOVASCULAR: Regular rate and rhythm without murmurs RESPIRATORY: Clear to auscultation. Breath sounds equal bilaterally. No wheezes, rales, or rhonchi. GASTROINTESTINAL: Abdomen soft, non-tender EXTREMITIES: No gross deformities. BACK: No flank tenderness. NEURO: AOx4. SKIN: Warm and dry PSYCH: Not anxious, is cooperative Initial Vital Signs Initial Vital Signs: Vital Signs Temperature 98.4 F 01/18/21 06:39 Pulse Rate 88 01/18/21 06:39 Respiratory Rate 20 01/18/21 06:39 Blood Pressure 109/68 01/18/21 06:39 Pulse Oximetry 97 01/18/21 06:39 Course Course Course Narrative: Did have 1 episode of nonbloody diarrhea here. Sent off for PCR. Results please see below Orders Ordered: ED Orders 01/18/21 07:45 Urine Culture Stat Urine Microscopic Stat 01/18/21 08:10 GI Panel (Film Array) Stat Discontinued Medications Diphenoxylate HCl/Atropine (Diphenoxylate/Atrop 2.5/0.025 Tablet) 2 each PO NOW ONE Stop: 01/18/21 09:16 Last Admin: 01/18/21 09:56 Dose: 2 each Documented by: NAZARIO Sodium Chloride (Normal Saline 0.9%) 1,000 mls @ 1,000 mls/hr IV BOLUS ONE Stop: 01/18/21 07:41 Last Infusion: 01/18/21 09:53 Dose: 0 mls/hr Documented by: Admin: 01/18/21 07:29 Dose: 1,000 mls/hr Documented by: NAZARIO Ondansetron HCl (Ondansetron 4 Mg/2 Ml Inj) 4 mg IV Q4HR PRN PRN Reason: Nausea And Vomiting Last Admin: 01/18/21 07:30 Dose: 4 mg Documented by: NAZARIO Pantoprazole Sodium (Pantoprazole 40 Mg Vial) 40 mg IV NOW ONE Stop: 01/18/21 06:48 Last Admin: 01/18/21 07:34 Dose: 40 mg Documented by: NAZARIO Reevaluation(s) Reevaluation #1: Reviewed results with patient. No imaging indicated this time. CBC improved. Continue antibiotics, patient agrees. Patient will contact her GI doctor in [place]. Time: 09:58 Vital Signs Vital signs: Vital Signs - 8 hr 01/18/21 10:32 Pulse Rate 75 Respiratory Rate 16 Blood Pressure 118/75 Pulse Oximetry 99 MDM - Nausea/Vomiting/Diarrhea Differential Diagnosis Differential diagnosis: Likely traveler's diarrhea, food poisoning, gastroenteritis, clostridium difficile infection, drug-induced nausea and vomiting and dehydration Medical Records Attestation: I reviewed the patient's medical records. Medical records narrative: [address] [id number] Scan ReportSigned Patient: Radha Macedo [facility]#: [id number]: 1985Acct:[id number]/Sex: 35 / FDate of Service: 01/10/21Loc: EDAccession Number: [id number] Procedure: CT abdomen pelvis w con Ordering Provider: Lena Tracey D.O. ROCEDURE: CT ABDOMEN PELVIS W CON INDICATIONS: acute on chronic abd pain. hx diverticulosis on scope TECHNIQUE: After the administration of intravenous contrast, axial sections acquired from the lung bases to the pubic symphysis. Coronal and sagittal reformats were performed. For radiation dose reduction, the following was used: automated exposure control, adjustment of mA and/or kV according to patient size. COMPARISON: None. FINDINGS: Image quality: Excellent. Lung bases: Unremarkable. Heart: No significant findings. ABDOMEN: Liver: There is diffuse hypoattenuation consistent with fatty infiltration with mild relative sparing along the gallbladder fossa. Gallbladder: Surgically absent. Biliary ducts: Unremarkable. Pancreas: Unremarkable. Spleen: Unremarkable. Adrenal Glands: Unremarkable. Kidneys and Ureters: Unremarkable. Stomach and Bowel: Stomach and small bowel loops demonstrate normal caliber and wall thickness. No evidence of appendicitis. There is colonic diverticulosis with out definite acute diverticular inflammatory changes to suggest diverticulitis. However, there is mild segmental wall thickening within the descending and sigmoid colon with mild pericolonic fat stranding compatible with a mild colitis. Peritoneum: No abnormal intraperitoneal fluid. No free air. Ventral Wall: No hernias. Abdominal Nodes: No retroperitoneal or mesenteric adenopathy by size criteria. Vessels: Aorta and inferior vena cava are normal in size. PELVIS: Pelvic Organs: There is a right ovarian cyst measuring up to 2.8 cm likely representing a follicular cyst. Uterus and ovaries appear within normal size limits. Bladder: Unremarkable. Pelvic Nodes: No enlarged lymph nodes. Miscellaneous: No hernias are seen. Bones: Unremarkable. IMPRESSION: 1. Mild segmental wall thickening in the descending and sigmoid colon with mild pericolonic fat stranding compatible with a mild colitis. 2. Colonic diverticulosis without definite acute diverticulitis. 3. Hepatic steatosis Dictated by: Baltazar Pan M.D. on 01/10/2021 at 17:13 Approved by: Baltazar Pan M.D. on 01/10/2021 at 17:15 Lab Data Attestation: I reviewed the patient's lab results. Result diagrams: 01/18/21 07:00 01/18/21 07:00 Labs: Lab Results 01/18/21 01/18/21 01/18/21 Range/Units 07:00 07:00 07:45 WBC 9.9 (4.5-11.0) X10^3/uL RBC 4.75 (4.0-5.2) X10^6/uL Hgb 12.9 (12.0-16.0) g/dL Hct 39.1 (36-46) % MCV 82.3 (80-100) fL MCH 27.2 (26-34) PG MCHC 33.1 (30-36) % RDW 13.5 (11.6-14.8) % Plt Count 384 (150-400) X10^3/uL Neut % (Auto) 75.2 H (50-75) % Lymph % (Auto) 17.9 L (25-40) % [place] % (Auto) 5.8 (3-14) % Eos % (Auto) 0.7 L (2-4) % Baso % (Auto) 0.4 (0-2) % Neut # (Auto) 7500 H (6393-6883) /uL Lymph # (Auto) 1800 (0363-1388) /uL [place] # (Auto) 600 (0-900) /uL Eos # (Auto) 100 (0-450) /uL Baso # (Auto) 0 (0-100) /uL Sodium 139 (137-145) mmol/L Potassium 3.8 (3.4-5.1) mmol/L Chloride 106 (98-107) mmol/L Carbon Dioxide 22 (22-32) mmol/L BUN 4 L (7-17) mg/dL Creatinine 0.52 (0.52-1.04) mg/dL Estimated GFR > 60.0 (>60) mL/min BUN/Creatinine Ratio 7.7 (6-22) Glucose 106 H (70-100) mg/dL Calcium 10.0 (8.4-10.2) mg/dL Total Bilirubin 0.6 (0.2-1.3) mg/dL AST 37 H (14-36) IU/L ALT 54 H (<35) IU/L Alkaline Phosphatase 89 (38-126) U/L Total Protein 8.0 (6.3-8.2) g/dL Albumin 4.7 (3.5-5.0) g/dL Globulin 3.3 (1.7-4.1) g/dL Albumin/Globulin Ratio 1.4 (1.0-2.8) Urine RBC 1-5/hpf (0-5/HPF) Urine WBC 5-10/hpf H (0-5/HPF) Ur Squamous Epith Cells 1-5 /hpf (0-5/HPF) Urine Bacteria Occasional (0-1) (None) Ur Culture Indicated? Specimen cultured Stl C. cayetanensis PCR (Not Detect) Stool Rotavirus (PCR) (Not Detect) Stool Adenovirus (PCR) (Not Detect) Stool Astrovirus (PCR) (Not Detect) Stool Cryptosporidium PCR (Not Detect) Stl E.coli Shiga Tox PCR (Not Detect) St Sh/Enteroin Ecoli PCR (Not Detect) Stool E coli O157 PCR Stl Enterotoxigenic E PCR (Not Detect) Stool EPEC (PCR) (Not Detect) Stl E. histolytica PCR (Not Detect) Stool Giardia Lamblia PCR (Not Detect) Stool Sapovirus (PCR) (Not Detect) Stl P. shigelloides PCR (Not Detect) St Y.enterocolitica PCR (Not Detect) Stool Vibrio (PCR) (Not Detect) Stl Vibrio cholerae PCR (Not Detect) Stl Enteroaggr Ecoli PCR (Not Detect) Stl Norovirus GI/GII PCR (Not Detect) Campylobacter (PCR) (Not Detect) C. difficile Tox (PCR) (Not Detect) Salmonella (PCR) (Not Detect) 01/18/21 Range/Units 08:10 WBC (4.5-11.0) X10^3/uL RBC (4.0-5.2) X10^6/uL Hgb (12.0-16.0) g/dL Hct (36-46) % MCV (80-100) fL MCH (26-34) PG MCHC (30-36) % RDW (11.6-14.8) % Plt Count (150-400) X10^3/uL Neut % (Auto) (50-75) % Lymph % (Auto) (25-40) % [place] % (Auto) (3-14) % Eos % (Auto) (2-4) % Baso % (Auto) (0-2) % Neut # (Auto) (0829-6992) /uL Lymph # (Auto) (1840-3752) /uL [place] # (Auto) (0-900) /uL Eos # (Auto) (0-450) /uL Baso # (Auto) (0-100) /uL Sodium (137-145) mmol/L Potassium (3.4-5.1) mmol/L Chloride (98-107) mmol/L Carbon Dioxide (22-32) mmol/L BUN (7-17) mg/dL Creatinine (0.52-1.04) mg/dL Estimated GFR (>60) mL/min BUN/Creatinine Ratio (6-22) Glucose (70-100) mg/dL Calcium (8.4-10.2) mg/dL Total Bilirubin (0.2-1.3) mg/dL AST (14-36) IU/L ALT (<35) IU/L Alkaline Phosphatase (38-126) U/L Total Protein (6.3-8.2) g/dL Albumin (3.5-5.0) g/dL Globulin (1.7-4.1) g/dL Albumin/Globulin Ratio (1.0-2.8) Urine RBC (0-5/HPF) Urine WBC (0-5/HPF) Ur Squamous Epith Cells (0-5/HPF) Urine Bacteria (None) Ur Culture Indicated? Stl C. cayetanensis PCR Not detected (Not Detect) Stool Rotavirus (PCR) Not detected (Not Detect) Stool Adenovirus (PCR) Not detected (Not Detect) Stool Astrovirus (PCR) Not detected (Not Detect) Stool Cryptosporidium PCR Not detected (Not Detect) Stl E.coli Shiga Tox PCR Not detected (Not Detect) St Sh/Enteroin Ecoli PCR Not detected (Not Detect) Stool E coli O157 PCR Not Reportable Stl Enterotoxigenic E PCR Not detected (Not Detect) Stool EPEC (PCR) Not detected (Not Detect) Stl E. histolytica PCR Not detected (Not Detect) Stool Giardia Lamblia PCR Not detected (Not Detect) Stool Sapovirus (PCR) Not detected (Not Detect) Stl P. shigelloides PCR Not detected (Not Detect) St Y.enterocolitica PCR Not detected (Not Detect) Stool Vibrio (PCR) Not detected (Not Detect) Stl Vibrio cholerae PCR Not detected (Not Detect) Stl Enteroaggr Ecoli PCR Not detected (Not Detect) Stl Norovirus GI/GII PCR Not detected (Not Detect) Campylobacter (PCR) Not detected (Not Detect) C. difficile Tox (PCR) Not detected (Not Detect) Salmonella (PCR) Not detected (Not Detect) Point of Care Testing Test Results Negative MDM Narrative Medical decision making narrative: Appropriate for discharge home. Laboratory studies and exam reassuring. Not toxic. No fever here. No indication for repeat CT scan, no fever with improving cbc and no peritoneal signs or abdominal tenderness. Patient agrees for trial of Lomotil as ongoing diarrhea for 2 weeks. No anti diarrheal medications has been started with her. Discharge Plan Departure Patient Disposition: Home Clinical Impression: Colitis Instructions: DI for Colitis Activity Restrictions/Additional Instructions: Call your GI doctor and confirm office appointment time for colonoscopy. Keep well hydrated. Return if worse or any questions or concerns. Anti diarrhea medication has been to [facility] at [place]. Prescriptions: New diphenoxylate-atropine [Lomotil] 2.5-0.025 mg tablet 1 tab PO BID PRN (Reason: diarrhea) Qty: 10 RF: 0 No Action esomeprazole magnesium [Nexium] 40 mg Capsule,Delayed Release(Dr/Ec) 40 mg PO DAILY RF: 0 fluticasone propionate [Flonase Allergy Relief] 50 mcg/actuation [place],Suspension 2 spray INTRANASAL DAILY RF: 0 prednisone 50 mg tablet 50 mg PO DAILY Qty: 4 RF: 0 meloxicam 7.5 mg tablet 7.5 mg PO BID Qty: 20 RF: 0 ondansetron 4 mg tablet,disintegrating 4 mg PO QID PRN (Reason: nausea and vomiting) Qty: 10 RF: 0 metronidazole [Flagyl] 500 mg tablet 500 mg PO Q8H Qty: 21 RF: 0 ciprofloxacin HCl [Cipro] 500 mg tablet 500 mg PO BID Qty: 14 RF: 0 Referrals: Orestes Blank MD [Primary Care Provider] -
[2021-01-18 07:20] LABS: Alanine Aminotransferase 54 IU/L (<35); Albumin 4.7 g/dL (3.5-5.0); Albumin Globulin Ratio 1.4 (1.0-2.8); Alkaline Phosphatase 89 U/L (38-126); Aspartate Aminotransferase 37 IU/L (14-36); BUN Creatinine Ratio 7.7 (6-22); Bilirubin Total 0.6 mg/dL (0.2-1.3); Blood Urea Nitrogen 4 mg/dL (7-17); Carbon Dioxide 22 mmol/L (22-32); Chloride 106 mmol/L (98-107); Estimated Glomerular Filt Rate > 60.0 mL/min (>60); Globulin 3.3 g/dL (1.7-4.1); Glucose 106 mg/dL (70-100); HEMOLYSIS < 15 (0-50); Potassium 3.8 mmol/L (3.4-5.1); Sodium 139 mmol/L (137-145)
[2021-01-18] MEDS: SODIUM CHLORIDE 0.9% 1,000 ML 1000 ML IV (07:29)
[2021-01-18] MEDS: ONDANSETRON 4 MG/2 ML INJ IV (07:30)
[2021-01-18] MEDS: PANTOPRAZOLE 40 MG VIAL IV (07:34)
[2021-01-18 09:20] LABS: Culture Indicated Urine Specimen Cultured; RBC Urine 1-5/HPF (0-5/HPF); Squamous Epithelial Cell Urine 1-5 /HPF (0-5/HPF); WBC Urine 5-10/HPF (0-5/HPF)
[2021-01-18 09:21] LABS: Bacteria Urine Occasional (0-1)
[2021-01-18 09:49] LABS: Campylobacter Not Detected (Not Detect); Clostridium difficile toxin AB Not Detected (Not Detect); Enteroaggregative E.coli Not Detected (Not Detect); Enteropathogenic E.coli Not Detected (Not Detect); Enterotoxigenic E.coli It/st Not Detected (Not Detect); Plesiomonsa shigelloides Not Detected (Not Detect); Salmonella Not Detected (Not Detect); Vibrio Not Detected (Not Detect); Vibrio cholerae Not Detected (Not Detect); Yersinia enterocolitica Not Detected (Not Detect)
[2021-01-18 09:50] LABS: Adenovirus F 40/41 Not Detected (Not Detect); Astrovirus Not Detected (Not Detect); Cryptosporidium Not Detected (Not Detect); Cyclospora cayetanensis Not Detected (Not Detect); Entamoeba histolytica Not Detected (Not Detect); Giardia lamblia Not Detected (Not Detect); Norovirus GI/GII Not Detected (Not Detect); Rotavirus A Not Detected (Not Detect); Sapovirus Not Detected (Not Detect); Shiga-like toxin-prod E.coli Not Detected (Not Detect); Shigella/Enteroinvasive E.coli Not Detected (Not Detect)
[2021-01-18] MEDS: DIPHENOXYLATE/ATROP 2.5/0.025 TABLET 2 EACH PO (09:56)
[2021-01-18 10:32] VITALS: BP 118/75; PULSE 75; RESP 16; O2SAT 99
== END 2021-01-18 10:33 | disposition home or self-care (01) ==
PROVIDERS: Emergency Medicine; Emergency Provider Emergency Medicine; PCP Family Medicine
DX: K52.9 Noninfective gastroenteritis and colitis, unspecified (principal)
CPT/HCPCS: 36415; 80053; 81015; 81025; 85025; 87086; 87507; 96361; 96374; 96375; 99284; C9113; J2405

== ENCOUNTER 2021-04-01 13:44 | Emergency (ER) | payer OTHER, SELFPAY ==
[2021-04-01 14:11] VITALS: BP 111/65; PULSE 98; RESP 18; TEMP 36.6; O2SAT 98; BMI 28.3
[2021-04-01 14:27] LABS: Bilirubin Urine UA NEGATIVE (NEGATIVE); Color Urine UA YELLOW; Glucose Urine UA NEGATIVE (Negative); Ketones Urine UA NEGATIVE (NEGATIVE); Leukocyte Esterase Urine UA TRACE (NEGATIVE); Nitrite Urine UA NEGATIVE (Negative); Occult Blood Urine UA 1+ (Negative); Protein Urine UA NEGATIVE (Negative); Urobilinogen Urine UA 0.2 E.U./dL (0.2)
[2021-04-01 14:30] LABS: Pregnancy Test Urine Negative (Negative)
[2021-04-01 14:52] LABS: Appearance Urine UA Slightly Cloudy; pH Urine UA 5.5 (4.5-8.0)
[2021-04-01 14:53] LABS: Amorphous Sediment Urine 1+; Bacteria Urine Few (2-10); Culture Indicated Urine Specimen Cultured; RBC Urine 0-1/HPF (0-5/HPF); Squamous Epithelial Cell Urine 1-5 /HPF (0-5/HPF); WBC Urine 1-5/HPF (0-5/HPF)
--- NOTE | 2021-04-01 15:37 | DI.US.S_ITS ---
PROCEDURE: US PELVIC COMPLETE INDICATIONS: LOWER PELVIC PAIN TECHNIQUE: Real-time scanning was performed of the pelvic organs, with image documentation. Additional endovaginal scanning was necessary due to incomplete visualization of the adnexal and endometrial structures by transabdominal scanning. COMPARISON: None. FINDINGS: Uterus: Uterus is normal in size at 8.5 x 6.0 x 4.8 cm. The endometrium measures 11.1 mm in combined thickness. Nabothian cysts incidentally noted. Ovaries: Right ovary measures 3.4 x 2.0 x 2.1 centimeters. Left ovary measures 3.2 x 3.1 centimeters. There is a 1.5 x 1.5 x 1.2 centimeter right [place] ovarian cystic lesion that has a soft tissue nodular component with internal vascularity. Finding may represent a complex cyst or ectopic . 1.8 x 1.1 x 1.4 centimeter involuting left ovarian cyst is noted. 1.71.7 x 1.8 centimeter simple left paraovarian cyst. Other: No pathologic free abdominal or pelvic fluid. IMPRESSION: 1. Uterus is sonographically normal. 2. 1.5 x 1.5 x 1.2 centimeter right paraovarian cyst which contains a small nodular soft tissue component. Finding could represent complex cyst or early ectopic . Recommend correlation with serum test. If test is negative follow-up ultrasound in 4-6 weeks should be obtained to evaluate for resolution of the finding. 3. Findings recommendations discussed with Dr. Foss on April 01, 2021 at 5:01 p.m. Dictated by: Anabel Pickett MD, PhD on 04/01/2021 at 16:57 Approved by: Anabel Pickett MD, PhD on 04/01/2021 at 17:06
[2021-04-01 18:55] LABS: HCG Quantitative /Beta subunit < 2.4 mIU/mL
--- NOTE | 2021-04-01 19:26 | ED_ITS ---
HPI - Female Genitourinary General Chief complaint: Urogenital-Female Stated complaint: Pelvic pain/going into back Time Seen by Provider: 04/01/21 17:14 Source: patient Mode of arrival: Ambulatory Limitations: no limitations History of Present Illness HPI Narrative: 35-year-old female nonsmoker with history of ovarian cysts and GERD as well as IBS presents with her in the chief complaint worsening left lower quadrant pain with some radiation to her back over the past week or so. Her last menstrual cycle was mid February and was a bit heavier and more painful than normal. She states her pain has been rather persistent since then and does feel different than her IBS. She states that it seems to be worse when she stands and improves with rest. It seems to come and go throughout the day without much in the way of any other provocation or palliation. She denies nausea or vomiting. She has had no fever or chills. She denies change in her bowel habits such as constipation or diarrhea. She denies any dysuria, frequency or urgency and has no vaginal bleeding or discharge. She had been seen by her primary care provider and was sent here for imaging Related Data Home Medications Medication Instructions Recorded Confirmed esomeprazole magnesium 40 mg 40 mg PO DAILY 03/03/20 03/03/20 capsule,delayed release (Nexium) fluticasone propionate 50 2 spray INTRANASAL DAILY 03/03/20 03/03/20 mcg/actuation nasal spray,suspension (Flonase Allergy Relief) Previous Rx's Medication Instructions Recorded meloxicam 7.5 mg tablet 7.5 mg PO BID #20 tab 01/10/21 ondansetron 4 mg disintegrating 4 mg PO QID PRN #10 tab 01/10/21 tablet prednisone 50 mg tablet 50 mg PO DAILY #4 tab 01/10/21 ciprofloxacin HCl 500 mg tablet 500 mg PO BID #14 tab 01/16/21 (Cipro) metronidazole 500 mg tablet 500 mg PO Q8H #21 tab 01/16/21 (Flagyl) diphenoxylate-atropine 2.5 1 tab PO BID PRN #10 tab 01/18/21 mg-0.025 mg tablet (Lomotil) hydrocodone 5 mg-acetaminophen 325 1 tab PO Q4-6H PRN #10 tab 04/01/21 mg tablet hyoscyamine sulfate 0.125 mg tablet 0.125 mg PO BID-QID PRN #20 tab 04/01/21 ketorolac 10 mg tablet 10 mg PO Q6H PRN #14 tab 04/01/21 ondansetron 4 mg disintegrating 4 mg PO TID-QID PRN #10 tab 04/01/21 tablet Allergies Allergy/AdvReac Type Severity Reaction Status Date / Time No Known Drug Allergies Allergy Verified 04/01/21 14:15 Review of Systems Review of Systems Narrative: GENERAL: Denies chills, fatigue, malaise, fever, sweats. HEENT: Denies sinus pain, ear pain, sore throat, difficulty swallowing, dizzine ss. RESPIRATORY: Denies dyspnea, cough, wheezing, hemoptysis, sputum. CARDIOVASCULAR: Denies chest pain, palpitations, orthopnea, edema, GASTROINTESTINAL: See HPI : See HPI MUSCULOSKELETAL: denies weakness, joint pain, or bony pain SKIN: Denies rash, skin lesions, or other NEUROLOGIC: Denies weakness, headache, numbness, change in speech, confusion, seizures, incoordination. PSYCHIATRIC: No concerning psychosocial issues. 12 point review of systems is negative except for those stated above Patient History alcohol intake frequency: holidays/special occasions only Substance Use Type: does not use Exam Narrative Exam Narrative: GENERAL: [35 year old patient appears stated age. Well-developed patient, in mild distress. HEAD: Atraumatic. Normocephalic. EYES: Pupils equal round and reactive. Extraocular motions intact. No scleral icterus. No injection or drainage. ENT: Nose without bleeding, purulent drainage. Throat without erythema, tonsillar hypertrophy or exudate. Airway patent. NECK: Trachea midline. Non tender CARDIOVASCULAR: Regular rate and rhythm without murmurs, gallops, or rubs. RESPIRATORY: Clear to auscultation. Breath sounds equal bilaterally. No wheezes, rales, or rhonchi. GASTROINTESTINAL: Abdomen soft, tender in the left lower quadrant without rebound or guarding nondistended. Bowel sounds present in all 4 quadrants EXTREMITIES: No edema or joint tenderness. BACK: Nontender without deformity or crepitance. No flank tenderness. NEURO: AOx3. SKIN: No rash or erythema of visible areas Initial Vital Signs Initial Vital Signs: Vital Signs Temperature 97.9 F 04/01/21 14:11 Pulse Rate 98 H 04/01/21 14:11 Respiratory Rate 18 04/01/21 14:11 Blood Pressure 111/65 04/01/21 14:11 Pulse Oximetry 98 04/01/21 14:11 Course Orders Ordered: ED Orders 04/01/21 14:20 Test Urine Stat Urinalysis and Microscopic Stat Urine Culture Stat 04/01/21 15:37 US pelvic complete Stat 04/01/21 17:30 HCG Quantitative /Beta subunit Stat Vital Signs Vital signs: Vital Signs - 8 hr 04/01/21 14:11 Temperature 97.9 F Pulse Rate 98 H Respiratory Rate 18 Blood Pressure 111/65 Pulse Oximetry 98 MDM - Female Genitourinary Lab Data Labs: Lab Results 04/01/21 04/01/21 04/01/21 Range/Units 14:20 14:20 17:30 HCG, Quant < 2.4 mIU/mL Urine Color Yellow Urine Appearance Slightly cloudy Urine pH 5.5 (4.5-8.0) Ur Specific [place] 1.010 (1.000-1.035) Urine Protein Negative (Negative) Urine Glucose (UA) Negative (Negative) g/dL Urine Ketones Negative (NEGATIVE) Urine Occult Blood 1+ H (Negative) Urine Nitrate Negative (Negative) Urine Bilirubin Negative (NEGATIVE) Urine Urobilinogen 0.2 (0.2) E.U./dL Ur Leukocyte Esterase Trace H (NEGATIVE) Urine RBC 0-1/hpf (0-5/HPF) Urine WBC 1-5/hpf (0-5/HPF) Ur Squamous Epith Cells 1-5 /hpf (0-5/HPF) Amorphous Sediment 1+ Urine Bacteria Few (2-10) H (None) Ur Culture Indicated? Specimen cultured Urine Test Negative (Negative) Imaging Data US - FIRMWARE TEST ENGINEER: Radiologist's Impression: Radha Macedo??35??F??1985 ? Allergy/Adv: No Known Drug Allergies Close Pelvis Ultrasound (Signed) Anabel Pickett - 04/01/21 Abdomen/Pelvis CT (Signed) Baltazar Pan - 01/10/21 Telemetry Strips 07/14/20 Telemetry Strips 03/03/20 Launch?[address] [address] Ultrasound Report Signed Patient: Radha Macedo MR#: [id number] : 1985 Acct:[id number] Age/Sex: 35 / F Date of Service: 04/01/21 Loc: ED Accession Number: [id number] ?? Procedure: US pelvic complete Ordering Provider: Argentina Foss D.O. PROCEDURE:? US PELVIC COMPLETE ? INDICATIONS:? LOWER PELVIC PAIN ? TECHNIQUE:? Real-time scanning was performed of the pelvic organs, with image documentation.? Additional endovaginal scanning was necessary due to incomplete visualization of the adnexal and endometrial structures by transabdominal scanning.? ? COMPARISON:? None. ? FINDINGS:? ?? Uterus:? Uterus is normal in size at 8.5 x 6.0 x 4.8 cm.? The endometrium measures 11.1 mm in combined thickness.? Nabothian cysts incidentally noted.? ? Ovaries:? Right ovary measures 3.4 x 2.0 x 2.1 centimeters.? Left ovary measures 3.2 x 3.1 centimeters.? There is a 1.5 x 1.5 x 1.2 centimeter right [place]rella ovarian cystic lesion that has a soft tissue nodular component with internal vascularity.? Finding may represent a complex cyst or ectopic .? 1.8 x 1.1 x 1.4 centimeter involuting left ovarian cyst is noted.? 1.71.7 x 1.8 centimeter simple left paraovarian cyst. ? Other: ? No pathologic free abdominal or pelvic fluid. ? IMPRESSION:? ? 1. Uterus is sonographically normal. ? ? 2. 1.5 x 1.5 x 1.2 centimeter right paraovarian cyst which contains a small nodular soft tissue component.? Finding could represent complex cyst or early ectopic .? Recommend correlation with serum test.? If test is negative follow-up ultrasound in 4-6 weeks should be obtained to evaluate for resolution of the finding. ? 3. Findings recommendations discussed with Dr. Foss on April 01, 2021 at 5:01 p.m. ? ? Dictated by: Anabel Pickett MD, PhD on 04/01/2021 at 16:57 ? ? Approved by: Anabel Pickett MD, PhD on 04/01/2021 at 17:06 ? MDM Narrative Medical decision making narrative: Multiple etiologies for patient's symptoms considered including: [Kidney stone versus bowel obstruction versus IBS versus other Patient's symptoms improved over duration of stay with above-stated therapies. We had an extensive discussion at the bedside regarding need for additional advanced imaging. She has a very reassuring exam and labs. Ultrasound demonstrates no significant findings. I have low suspicion of an ominous diagnosis which would require immediate intervention. We agreed to treat her symptoms and have her follow-up closely and a repeat CT (last was in December) could be ordered in the future if needed Findings and discharge diagnosis discussed with patient/family followed by verbalization of understanding Return precautions discussed with patient/family whom verbalize understanding. Discharge Plan Departure Patient Disposition: Home Clinical Impression: Acute left lower quadrant pain Instructions: DI for Abdominal Pain-Adult Activity Restrictions/Additional Instructions: *You have been diagnosed with [acute left lower quadrant pain, no significant findings on ultrasound or labs. *What to do: *Please continue to take your regular medications as directed. [ x] New medication prescriptions sent to your pharmacy: [[facility] in [place]] [ ] New medication written as a paper prescription [ ] No new medications given *Please follow up with your primary care provider in 2-3 days, call for an appointment. Let them know you were seen in the Emergency Department and that we ask that you be seen in follow up. We will electronically transmit a record of today's note if your PCP is in our system *If you do not have a primary care provider please contact the [facility] Resource line at [phone]. They will ask some questions about your medical history and help get you set up with a doctor in the community. *Return to Emergency Department if you should have any new, worsening or concerning symptoms, such as [fever greater than 101 F, shaking chills, worsening pain, persistent vomiting or other bothersome symptoms] Prescriptions: New hydrocodone-acetaminophen 5-325 mg tablet 1 tab PO Q4-6H PRN (Reason: pain) Qty: 10 RF: 0 ketorolac 10 mg tablet 10 mg PO Q6H PRN (Reason: pain) Qty: 14 RF: 0 hyoscyamine sulfate 0.125 mg tablet 0.125 mg PO BID-QID PRN (Reason: dyspepsia) Qty: 20 RF: 0 ondansetron 4 mg tablet,disintegrating 4 mg PO TID-QID PRN (Reason: nausea and vomiting) Qty: 10 RF: 0 No Action esomeprazole magnesium [Nexium] 40 mg Capsule,Delayed Release(Dr/Ec) 40 mg PO DAILY RF: 0 fluticasone propionate [Flonase Allergy Relief] 50 mcg/actuation [place],Suspension 2 spray INTRANASAL DAILY RF: 0 prednisone 50 mg tablet 50 mg PO DAILY Qty: 4 RF: 0 meloxicam 7.5 mg tablet 7.5 mg PO BID Qty: 20 RF: 0 ondansetron 4 mg tablet,disintegrating 4 mg PO QID PRN (Reason: nausea and vomiting) Qty: 10 RF: 0 metronidazole [Flagyl] 500 mg tablet 500 mg PO Q8H Qty: 21 RF: 0 ciprofloxacin HCl [Cipro] 500 mg tablet 500 mg PO BID Qty: 14 RF: 0 diphenoxylate-atropine [Lomotil] 2.5-0.025 mg tablet 1 tab PO BID PRN (Reason: diarrhea) Qty: 10 RF: 0 Referrals: Orestes Blank MD [Primary Care Provider] -
== END 2021-04-01 19:51 | disposition home or self-care (01) ==
PROVIDERS: Emergency Medicine; Emergency Provider Emergency Medicine; PCP Family Medicine
DX: R10.32 Left lower quadrant pain (principal); R10.2 Pelvic and perineal pain
CPT/HCPCS: 36415; 76830; 76856; 81001; 81025; 84702; 87086; 99283; 99284

== ENCOUNTER 2021-06-30 09:16 | Emergency (ER) | payer OTHER, SELFPAY ==
[2021-06-30 09:22] VITALS: BP 131/67; PULSE 99; RESP 14; TEMP 36.9; O2SAT 98; BMI 28.3
--- NOTE | 2021-06-30 09:39 | ED.ABDPAIN ---
HPI - Abdominal Pain General Chief Complaint: Abdominal Pain Stated Complaint: ABDOMINAL PAIN/LT SIDE AND BACK Time Seen by Provider: 06/30/21 09:39 Source: patient Mode of arrival: Ambulatory Limitations: no limitations History of Present Illness HPI narrative: This is a 35-year-old female comes in with complaint of left lower quadrant pain. Patient states she started having symptoms with her last menses. Patient states that the pain resolved for several days at the end of her menses and has reoccurred. It is on the left lower quadrant. She states that she has had ovarian cyst this feels similar. Patient states she had some nausea but has not had any vomiting. She has had some diarrhea but no black or bloody stools. Patient is no longer having vaginal bleeding or discharge. She also notes she is having some pain radiating through to from the left buttock around to the front and then down her left thigh. She does state this is worse with movement and lying flat. Patient denies any fevers or chills. No other infectious type symptoms. She has tried ibuprofen which has not been controlling her pain. She has follow-up with Ob scheduled for later in the month. She denies any other major medical issues. She has had her gallbladder removed but no other surgeries. According to her EMR she has PCOS. No known drug allergies. No tobacco, alcohol or illicit. Related Data Home Medications Medication Instructions Recorded Confirmed esomeprazole magnesium 40 mg 40 mg PO DAILY 03/03/20 03/03/20 capsule,delayed release (Nexium) fluticasone propionate 50 2 spray INTRANASAL DAILY 03/03/20 03/03/20 mcg/actuation nasal spray,suspension (Flonase Allergy Relief) Previous Rx's Medication Instructions Recorded meloxicam 7.5 mg tablet 7.5 mg PO BID #20 tab 01/10/21 ondansetron 4 mg disintegrating 4 mg PO QID PRN #10 tab 01/10/21 tablet prednisone 50 mg tablet 50 mg PO DAILY #4 tab 01/10/21 ciprofloxacin HCl 500 mg tablet 500 mg PO BID #14 tab 01/16/21 (Cipro) metronidazole 500 mg tablet 500 mg PO Q8H #21 tab 01/16/21 (Flagyl) diphenoxylate-atropine 2.5 1 tab PO BID PRN #10 tab 01/18/21 mg-0.025 mg tablet (Lomotil) hydrocodone 5 mg-acetaminophen 325 1 tab PO Q4-6H PRN #10 tab 04/01/21 mg tablet hyoscyamine sulfate 0.125 mg tablet 0.125 mg PO BID-QID PRN #20 tab 04/01/21 ketorolac 10 mg tablet 10 mg PO Q6H PRN #14 tab 04/01/21 ondansetron 4 mg disintegrating 4 mg PO TID-QID PRN #10 tab 04/01/21 tablet meloxicam 7.5 mg tablet 7.5 mg PO BID #14 tab 06/30/21 Allergies Allergy/AdvReac Type Severity Reaction Status Date / Time No Known Drug Allergies Allergy Verified 06/30/21 09:30 Review of Systems Review of Systems ROS Unobtainable: All systems reviewed & are unremarkable except as noted in HPI and below Patient History Social History household members: spouse Smoking Status: Never smoker Smoking Status: Never smoker alcohol intake frequency: holidays/special occasions only Substance Use Type: does not use Exam Narrative Exam Narrative: GENERAL: Alert and oriented x three, female in mild distress. HEENT: Head normocephalic, atraumatic, EOMI, pupils reactive, face symmetric, moist mucous membranes NECK: Supple, full range of motion CARDIOVASCULAR: Regular rate and rhythm without murmurs, rubs or gallops. RESPIRATORY: Breath sounds equal bilaterally, no wheezes rales or rhonchi. ABDOMEN: Soft, left lower quadrant tenderness in suprapubically. Nondistended. Normoactive bowel sounds all 4 quadrants. No guarding or rebound, rigidity, no mass : No CVA tenderness BACK: No cervical, thoracic or lumbar vertebral point tenderness. Patient has normal range of motion, but does have discomfort with flexion extension at the back. Patient does have tenderness over the left SI region and piriformis. Patient's gait is normal. Muscle strength is 5/5 in lower extremities, sensation intact. EXTREMITIES: Normal range of motion, no clubbing or edema. Neurovascularly intact NEUROLOGICAL: Cranial nerves II through XII grossly intact. Moving all extremities SKIN: Warm, dry, no petechiae, no rashes or lesions. Initial Vital Signs Initial Vital Signs: Vital Signs Temperature 98.5 F 06/30/21 09:22 Pulse Rate 99 H 06/30/21 09:22 Respiratory Rate 14 06/30/21 09:22 Blood Pressure 131/67 06/30/21 09:22 Pulse Oximetry 98 06/30/21 09:22 Course Orders Ordered: Discontinued Medications Ketorolac Tromethamine (Ketorolac 30 Mg/Ml Vial) 30 mg IV NOW ONE Stop: 06/30/21 11:28 Last Admin: 06/30/21 11:32 Dose: 30 mg Documented by: AMY Reevaluation(s) Reevaluation #1: Patient and I reviewed her lab findings as well as her ultrasound with no clear cause of her left lower quadrant pain. Some of her pain seems more to be musculoskeletal or radiculopathy is she has pain in her buttock that is reproduced on palpation of the piriformis and going down her leg but she is tender in her left upper quadrant which is inconsistent with this. We discussed getting a CT abdomen pelvis this time she defers. Plan for some pain control and watchful waiting. Patient feels comfortable with this plan she has follow-up set up and we discussed return precautions. Vital Signs Vital signs: Vital Signs - 8 hr 06/30/21 11:35 Pulse Rate 88 Respiratory Rate 16 Blood Pressure 119/60 Pulse Oximetry 99 MDM - Abdominal Pain Lab Data Result diagrams: 06/30/21 09:30 06/30/21 09:30 Labs: Lab Results 06/30/21 06/30/21 Range/Units 09:30 09:30 WBC 6.7 (4.5-11.0) X10^3/uL RBC 4.51 (4.0-5.2) X10^6/uL Hgb 11.9 L (12.0-16.0) g/dL Hct 35.7 L (36-46) % MCV 79.3 L (80-100) fL MCH 26.4 (26-34) PG MCHC 33.3 (30-36) % RDW 13.9 (11.6-14.8) % Plt Count 373 (150-400) X10^3/uL Neut % (Auto) 61.9 (50-75) % Lymph % (Auto) 32.6 (25-40) % [place] % (Auto) 4.1 (3-14) % Eos % (Auto) 0.8 L (2-4) % Baso % (Auto) 0.6 (0-2) % Neut # (Auto) 4100 (4103-9139) /uL Lymph # (Auto) 2200 (7174-5255) /uL [place] # (Auto) 300 (0-900) /uL Eos # (Auto) 100 (0-450) /uL Baso # (Auto) 0 (0-100) /uL Sodium 141 (137-145) mmol/L Potassium 4.0 (3.4-5.1) mmol/L Chloride 105 (98-107) mmol/L Carbon Dioxide 26 (22-32) mmol/L BUN 10 (7-17) mg/dL Creatinine 0.46 L (0.52-1.04) mg/dL Estimated GFR > 60.0 (>60) mL/min BUN/Creatinine Ratio 21.7 (6-22) Glucose 103 H (70-100) mg/dL Calcium 9.5 (8.4-10.2) mg/dL Total Bilirubin 0.6 (0.2-1.3) mg/dL AST 26 (14-36) IU/L ALT 21 (<35) IU/L Alkaline Phosphatase 60 (38-126) U/L Total Protein 8.1 (6.3-8.2) g/dL Albumin 4.8 (3.5-5.0) g/dL Globulin 3.3 (1.7-4.1) g/dL Albumin/Globulin Ratio 1.5 (1.0-2.8) Lipase 44 (23-300) U/L Point of care testing: Point of Care Testing Test Results Negative Urine Dip Bedside Urine Glucose Negative Bedside Urine Bilirubin - Negative Bedside Urine Ketone - Negative Urine Specific [place] 1.010 Bedside Urine Occult Blood +/- Bedside Urine pH 6.0 Bedside Urine Protein - Negative Bedside Urine Urobilinogen - Negative Bedside Urine Nitrite - Negative Bedside Urine Leukocytes - Negative Esterase Imaging Data US - ICU SPECIALIST: Radiologist's Impression: Radha Macedo??35??F??1985 ? Allergy/Adv: No Known Drug Allergies Close Pelvis Ultrasound (Signed) Misha Valle - 06/30/21 Pelvis Ultrasound (Signed) Anabel Pickett - 04/01/21 Abdomen/Pelvis CT (Signed) Baltazar Pan - 01/10/21 Telemetry Strips 07/14/20 Telemetry Strips 03/03/20 Launch?Image [address] [address] Ultrasound Report Signed Patient: Radha Macedo MR#: [id number] : 1985 Acct:[id number] Age/Sex: 35 / F Date of Service: 06/30/21 Loc: ED Accession Number: [id number] ?? Procedure: US pelvic complete Ordering Provider: Lena Tracey D.O. PROCEDURE:? US PELVIC COMPLETE ? INDICATIONS:? LEFT LOWER QUADRANT PAIN ? TECHNIQUE:? Real-time scanning was performed of the pelvic organs, with image documentation.? Additional endovaginal scanning was necessary due to incomplete visualization of the adnexal and endometrial structures by transabdominal scanning.? ? COMPARISON:? [facility], , PELVIC COMPLETE, 04/01/2021, 16:08. ? FINDINGS:? ?? Uterus:? Uterus is anteverted and normal in size at 8.1 x 6.4 x 4.6 cm. The myometrium is heterogeneous.? Along the posterior midline of the uterus, there is a cyst with minimal internal echoes that measures up to 7 mm ? The endometrium measures 7 mm combined thickness.? Incidental note is made of nabothian cysts. ? Ovaries:? The right ovary measures 3.3 x 2.5 x 2.4 cm. The left ovary measures 2.8 x 2.6 x 2.6 cm.? More than 12 follicles can be seen involving each ovary.? ? There is a known left paraovarian anechoic cyst that measures 15 x 18 x 16 mm, which previously measured 17 x 18 x 18 mm. Normal appearing arterial waveforms are confirmed to each ovary. ? ? Other:? A mild amount of free pelvic fluid is seen, which is considered to be within physiologic limits.? ? ? IMPRESSION:? ? No imaging explanation is found for this patient's presenting symptoms.? ? There is a stable anechoic left paraovarian cyst again seen. ? More than 12 follicles can be seen involving each ovary, which is consistent with polycystic ovarian syndrome.? ? ? We strive to produce accurate, complete, and clear reports of imaging services. To assist us in improving patient care, this report was composed using standard report templates and voice recognition software. Therefore, it may contain abnormal punctuation, insertions and/or omissions. Occasional wrong-word or sound-alike substitutions may occur. Though we review the report and make efforts to correct it, we do recommend that the report be read carefully in proper context to recognize any text inaccuracies. ? ? Dictated by: Misha Valle M.D. on 06/30/2021 at 9:36 ? ? Approved by: Misha Valle M.D. on 06/30/2021 at 9:40?? MDM Narrative Medical decision making narrative: This is a 35-year-old female who comes with complaint of abdominal pain but also left buttock and radiating down her leg somewhat. On exam she has pain on her SI which makes me think more musculoskeletal but she also has some left lower quadrant tenderness. She has a history of PCOS and ovarian cysts, her ultrasound does not show a clear cause her labs in urine or reassuring but we did discuss doing further workup and imaging. At this time patient defers plan for some pain medication and for her to follow-up. We discussed return precautions. We discussed she could potentially have 2 separate issues occurring at this time. Patient is to return if worsening symptoms all questions answered. Discharge Plan Departure Patient Disposition: Home Clinical Impression: Abdominal pain, Sciatica Instructions: DI for Abdominal Pain-Adult Activity Restrictions/Additional Instructions: On evaluation some of your symptoms are more consistent with sciatica or irritation of the nerves and muscles in her back that can cause radiation down the leg. You can take meloxicam 1 tablet every 12 hours as needed for pain. You can take Tylenol up to a 1000 mg every 8 hours in addition to this. Prescription sent to [facility] in [place] Please return for new or worsening abdominal, back or flank pain, persistent vomiting, fevers, black or bloody stools, new vaginal bleeding or changes today vaginal discharge or other new or concerning symptoms. Prescriptions: New meloxicam 7.5 mg tablet 7.5 mg PO BID Qty: 14 0RF No Action hydrocodone-acetaminophen 5-325 mg tablet 1 tab PO Q4-6H PRN (Reason: pain) Qty: 10 0RF ketorolac 10 mg tablet 10 mg PO Q6H PRN (Reason: pain) Qty: 14 0RF hyoscyamine sulfate 0.125 mg tablet 0.125 mg PO BID-QID PRN (Reason: dyspepsia) Qty: 20 0RF ondansetron 4 mg tablet,disintegrating 4 mg PO TID-QID PRN (Reason: nausea and vomiting) Qty: 10 0RF esomeprazole magnesium [Nexium] 40 mg Capsule,Delayed Release(Dr/Ec) 40 mg PO DAILY 0RF fluticasone propionate [Flonase Allergy Relief] 50 mcg/actuation [place],Suspension 2 spray INTRANASAL DAILY 0RF prednisone 50 mg tablet 50 mg PO DAILY Qty: 4 0RF meloxicam 7.5 mg tablet 7.5 mg PO BID Qty: 20 0RF ondansetron 4 mg tablet,disintegrating 4 mg PO QID PRN (Reason: nausea and vomiting) Qty: 10 0RF metronidazole [Flagyl] 500 mg tablet 500 mg PO Q8H Qty: 21 0RF ciprofloxacin HCl [Cipro] 500 mg tablet 500 mg PO BID Qty: 14 0RF diphenoxylate-atropine [Lomotil] 2.5-0.025 mg tablet 1 tab PO BID PRN (Reason: diarrhea) Qty: 10 0RF Referrals: Orestes Blank MD [Primary Care Provider] -
--- NOTE | 2021-06-30 09:48 | DI.US.S_ITS ---
PROCEDURE: US PELVIC COMPLETE INDICATIONS: LEFT LOWER QUADRANT PAIN TECHNIQUE: Real-time scanning was performed of the pelvic organs, with image documentation. Additional endovaginal scanning was necessary due to incomplete visualization of the adnexal and endometrial structures by transabdominal scanning. COMPARISON: [facility], , US PELVIC COMPLETE, 04/01/2021, 16:08. FINDINGS: Uterus: Uterus is anteverted and normal in size at 8.1 x 6.4 x 4.6 cm. The myometrium is heterogeneous. Along the posterior midline of the uterus, there is a cyst with minimal internal echoes that measures up to 7 mm The endometrium measures 7 mm combined thickness. Incidental note is made of nabothian cysts. Ovaries: The right ovary measures 3.3 x 2.5 x 2.4 cm. The left ovary measures 2.8 x 2.6 x 2.6 cm. More than 12 follicles can be seen involving each ovary. There is a known left paraovarian anechoic cyst that measures 15 x 18 x 16 mm, which previously measured 17 x 18 x 18 mm. Normal appearing arterial waveforms are confirmed to each ovary. Other: A mild amount of free pelvic fluid is seen, which is considered to be within physiologic limits. IMPRESSION: No imaging explanation is found for this patient's presenting symptoms. There is a stable anechoic left paraovarian cyst again seen. More than 12 follicles can be seen involving each ovary, which is consistent with polycystic ovarian syndrome. We strive to produce accurate, complete, and clear reports of imaging services. To assist us in improving patient care, this report was composed using standard report templates and voice recognition software. Therefore, it may contain abnormal punctuation, insertions and/or omissions. Occasional wrong-word or sound-alike substitutions may occur. Though we review the report and make efforts to correct it, we do recommend that the report be read carefully in proper context to recognize any text inaccuracies. Dictated by: Misha Valle M.D. on 06/30/2021 at 9:36 Approved by: Misha Valle M.D. on 06/30/2021 at 9:40
[2021-06-30 09:59] LABS: Add Manual Diff / Slide Review NO; Basophils Absolute Auto 0 /uL (0-100); Basophils Percent Auto 0.6 % (0-2); Eosinophils Absolute Auto 100 /uL (0-450); Eosinophils Percent Auto 0.8 % (2-4); Hematocrit 35.7 % (36-46); Hemoglobin 11.9 g/dL (12.0-16.0); Lymphocytes Absolute Auto 2200 /uL (1100-4500); Lymphocytes Percent Auto 32.6 % (25-40); Mean Corpuscular HGB Conc 33.3 % (30-36); Mean Corpuscular Hemoglobin 26.4 PG (26-34); Mean Corpuscular Volume 79.3 fL (80-100); Monocytes Absolute Auto 300 /uL (0-900); Monocytes Percent Auto 4.1 % (3-14); Neutrophils Absolute Auto 4100 /uL (1500-7000); Neutrophils Percent Auto 61.9 % (50-75); Platelet Count 373 X10^3/uL (150-400); Red Blood Cell Count 4.51 X10^6/uL (4.0-5.2); Red Cell Distribution Width 13.9 % (11.6-14.8); White Blood Cell Count 6.7 X10^3/uL (4.5-11.0)
[2021-06-30 10:04] LABS: Alanine Aminotransferase 21 IU/L (<35); Albumin 4.8 g/dL (3.5-5.0); Albumin Globulin Ratio 1.5 (1.0-2.8); Alkaline Phosphatase 60 U/L (38-126); Aspartate Aminotransferase 26 IU/L (14-36); BUN Creatinine Ratio 21.7 (6-22); Bilirubin Total 0.6 mg/dL (0.2-1.3); Blood Urea Nitrogen 10 mg/dL (7-17); Calcium 9.5 mg/dL (8.4-10.2); Carbon Dioxide 26 mmol/L (22-32); Chloride 105 mmol/L (98-107); Estimated Glomerular Filt Rate > 60.0 mL/min (>60); Globulin 3.3 g/dL (1.7-4.1); Glucose 103 mg/dL (70-100); HEMOLYSIS 21 (0-50); Lipase 44 U/L (23-300); Sodium 141 mmol/L (137-145); Total Protein 8.1 g/dL (6.3-8.2)
[2021-06-30] MEDS: KETOROLAC 30 MG/ML VIAL IV (11:32)
[2021-06-30 11:35] VITALS: BP 119/60; PULSE 88; RESP 16; O2SAT 99
== END 2021-06-30 11:45 | disposition home or self-care (01) ==
PROVIDERS: Emergency Provider Emergency Medicine; PCP Family Medicine
DX: R10.32 Left lower quadrant pain (principal); M54.32 Sciatica, left side
CPT/HCPCS: 36415; 76830; 76856; 80053; 81003; 81025; 83690; 85025; 96374; 99284; J1885

== ENCOUNTER 2021-12-31 09:21 | Emergency (ER) | payer OTHER, SELFPAY ==
[2021-12-31 09:30] VITALS: BP 130/66; PULSE 88; RESP 18; TEMP 36.6; O2SAT 99
[2021-12-31 10:04] LABS: Bacteria Urine Few (2-10); Culture Indicated Urine Cult Not Indicated; RBC Urine 0-1/HPF (0-5/HPF); Squamous Epithelial Cell Urine None Seen (0-5/HPF); WBC Urine 0-1/HPF (0-5/HPF)
[2021-12-31 10:12] VITALS: BP 128/78; PULSE 91; RESP 18; O2SAT 100
--- NOTE | 2021-12-31 10:17 | ED_ITS ---
HPI - General Adult General Chief complaint: Urogenital-Female Stated complaint: UTI not resolving with medication Time Seen by Provider: 12/31/21 10:00 Source: patient Mode of arrival: Family Vehicle History of Present Illness HPI narrative: 36-year-old female who started having dysuria and urinary frequency and urgency several weeks ago. Was seen in outside facility. Was started on Macrobid and Pyridium. No fevers. She stated there symptoms did not improve on the Macrobid shows she was re-evaluated this facility. Again had a urinalysis which showed bacteria. She was switched to Bactrim. She finished the Bactrim 2 days ago. She continues to have pelvic discomfort and also urinary urgency and frequency. No fevers. No back pain. Has had some diarrhea but she thinks is because of the antibiotics. No vaginal bleeding. No vaginal discharge. Related Data Home Medications Medication Instructions Recorded Confirmed fluticasone propionate 50 2 spray INTRANASAL DAILY 03/03/20 12/09/21 mcg/actuation nasal spray,suspension (Flonase Allergy Relief) cetirizine 10 mg capsule (Zyrtec) 10 mg PO DAILY PRN 12/09/21 12/09/21 Previous Rx's Medication Instructions Recorded norethindrone (contraceptive) 0.35 0.35 mg PO DAILY #84 tab 09/06/21 mg tablet oxybutynin chloride 5 mg 5 mg PO DAILY #14 tab 12/31/21 tablet,extended release 24 hr (Ditropan XL) Allergies Allergy/AdvReac Type Severity Reaction Status Date / Time No Known Drug Allergies Allergy Verified 12/31/21 09:35 Review of Systems Constitutional Constitutional: Reports system reviewed and no additional complaints, except as documented Gastrointestinal Gastrointestinal: Reports as per HPI and Reports system reviewed and no additional complaints, except as documented Genitourinary Genitourinary: Reports system reviewed and no additional complaints, except as documented and Reports as per HPI Integumentary/Breasts Skin/Breast: Reports system reviewed and no additional complaints, except as documented Hematologic/Lymphatic On Anticoagulants: No Patient History Medical History Vaginal delivery Surgical History History of cholecystectomy Social History household members: spouse Smoking Status: Never smoker Smoking Status: Never smoker alcohol intake frequency: holidays/special occasions only Substance Use Type: does not use Exam Initial Vital Signs Initial Vital Signs: Vital Signs Temperature 97.9 F 12/31/21 09:30 Pulse Rate 88 12/31/21 09:30 Respiratory Rate 18 12/31/21 09:30 Blood Pressure 130/66 12/31/21 09:30 Pulse Oximetry 99 12/31/21 09:30 Const General: cooperative, comfortable and well developed HENMT Head: normal to inspection and normocephalic Resp Effort & Inspection: normal respiratory effort Cardio Rate: regular rate GI Inspection: normal to inspection Palpation: tender (Lower abdomen) Neuro General: patient alert, patient awake and moves all extremities Extrem General: normal to inspection and capillary refill normal Psych Appearance: grossly normal and well kempt Course Orders Ordered: ED Orders 12/31/21 09:40 Urine Microscopic Stat 12/31/21 10:42 Chlamydia Gonorrhea PCR -URINE Stat Urine Culture Stat 12/31/21 10:58 CT kidney ureter bladder (KUB) Stat 12/31/21 11:41 US pelvic complete Stat Vital Signs Vital signs: Vital Signs - 8 hr 12/31/21 09:30 12/31/21 10:12 12/31/21 13:14 Temperature 97.9 F Pulse Rate 88 91 H 92 H Respiratory Rate 18 18 16 Blood Pressure 130/66 128/78 116/69 Pulse Oximetry 99 100 96 Medical Decision Making Lab Data Lab results reviewed: Yes I reviewed the patient's lab results. Labs: Lab Results 12/31/21 12/31/21 Range/Units 09:40 10:42 Urine RBC 0-1/hpf (0-5/HPF) Urine WBC 0-1/hpf (0-5/HPF) Ur Squamous Epith Cells None seen (0-5/HPF) Urine Bacteria Few (2-10) H (None) Ur Culture Indicated? Cult not indicated Ur Chlamydia DNA (PCR) Not detected N gonorrhoeae DNA (PCR) Not detected Point of Care Testing Test Results Negative Urine Dip Bedside Urine Glucose Negative Bedside Urine Bilirubin - Negative Bedside Urine Ketone - Negative Urine Specific [place] 1.015 Bedside Urine Occult Blood + Bedside Urine pH 6.0 Bedside Urine Protein - Negative Bedside Urine Urobilinogen - Negative Bedside Urine Nitrite - Negative Bedside Urine Leukocytes - Negative Esterase Point of care testing: Point of Care Testing Test Results Negative Urine Dip Bedside Urine Glucose Negative Bedside Urine Bilirubin - Negative Bedside Urine Ketone - Negative Urine Specific [place] 1.015 Bedside Urine Occult Blood + Bedside Urine pH 6.0 Bedside Urine Protein - Negative Bedside Urine Urobilinogen - Negative Bedside Urine Nitrite - Negative Bedside Urine Leukocytes - Negative Esterase Imaging Data CT scan - abdomen/pelvis: Radiologist's Impression: [address] [address] [address] Scan Report Signed Patient: Radha Macedo MR#: [id number] : 1985 Acct:[id number] Age/Sex: 36 / F Date of Service: 12/31/21 Loc: ED Accession Number: [id number] ?? Procedure: CT kidney ureter bladder (KUB) Ordering Provider: Paulo Hoffman D.O. PROCEDURE:? CT KIDNEY URETER BLADDER (KUB) ? INDICATIONS:? flank pain with hematuria eval for stone ? TECHNIQUE:? Axial sections were acquired from the lung bases to the pubic symphysis.? Coronal and sagittal reformats were performed.? For radiation dose reduction, the following was used: ?automated exposure control, adjustment of mA and/or kV according to patient size.? ? COMPARISON:? [facility], CT, CT ABDOMEN PELVIS W CON, 01/10/2021, 16:12. ? FINDINGS:? Image quality:? Excellent.? ? Lung bases:? Unremarkable.? ? Heart:? No significant findings. ? URINARY: Right Kidney:? Unremarkable.? No stones origin or hydronephrosis. Right Ureter:? No hydroureter. ? Left Kidney:? Unremarkable.? No evidence of stones or hydronephrosis. Left Ureter:? No hydroureter. ? Bladder:? Normal wall thickness. No stones. ? ? ? ABDOMEN: Liver:? Diffuse hypoattenuation.? No focal abnormality. Gallbladder:? Surgically absent.? Biliary ducts:? Unremarkable.? ? Pancreas:? Hypoattenuating lesion within the head of the pancreas measuring 2.1 centimeters. Spleen:? Unremarkable.? ? Adrenal Glands:? Unremarkable.? ? ? Stomach and Bowel:? Stomach, small bowel loops, and colon are unremarkable.? Peritoneum:? No abnormal intraperitoneal fluid.? No free air.? ? Ventral Wall: ? Small fat containing umbilical hernia. Abdominal Nodes:? No enlarged retroperitoneal or mesenteric lymph nodes.? Vessels:? Aorta and inferior vena cava are normal in size.? ? PELVIS: Pelvic Organs:? Large hypodense ovarian cystic lesion with dense layering attenuation.? This measures approximately 4.7 x 5.7 x 6.3 centimeters. Pelvic Nodes: Unremarkable. Miscellaneous: No inguinal hernias are seen. ? ? ? Bones:? No acute osseous abnormality.? Mild degenerative changes of the spine.? No aggressive appearing osseous lesion. ? IMPRESSION:? ? Large likely hemorrhagic cyst of the left ovary measuring approximately 6.3 centimeters.? Consider pelvic ultrasound for further evaluation. ? Stable 2.1 centimeter hypoattenuating lesion within the pancreatic head .? Recommend non emergent outside pancreas MRI for further evaluation. ? No evidence of urinary tract calcifications or obstructive uropathy. ? ? ? Dictated by: Naseem Salcido D.O. on 12/31/2021 at 10:17 ? ? Approved by: Naseem Salcido D.O. on 12/31/2021 at 10:27 US - [employer]OCATIONAL SERVICES SPECIALIST: Radiologist's Impression: [place] [address] Ultrasound Report Signed Patient: Radha Macedo MR#: [id number] : 1985 Acct:[id number] Age/Sex: 36 / F Date of Service: 12/31/21 Loc: ED Accession Number: [id number] ?? Procedure: US pelvic complete Ordering Provider: Paulo Hoffman D.O. PROCEDURE:? US PELVIC COMPLETE ? INDICATIONS:? LEFT OVARIAN CYST ON CT ? TECHNIQUE:? Real-time scanning was performed of the pelvic organs, with image documentation.? Additional endovaginal scanning was necessary due to incomplete visualization of the adnexal and endometrial structures by transabdominal scanning.? ? COMPARISON:? [facility], CT, CT KIDNEY URETER BLADDER (KUB), 12/31/2021, 11:09.? [facility], PELVIC COMPLETE, 06/30/2021, 9:59.? [facility], PELVIC COMPLETE, 09/06/2021, 16:31. ? FINDINGS:? ?? Uterus:? Uterus is anteverted and normal in size at 10.3 x 5.2 x 7.2 cm. The myometrium is homogeneous.? The endometrium measures 1.4 cm combined thickness.? No suspicious mass. ?Cervix demonstrates nabothian cysts. ? Ovaries:? The right ovary measures 3.8 x 2.1 x 1.8 cm. The left ovary measures 5.7 x 6.1 x 6.0 cm.? Internal arterial and venous waveforms are documented bilaterally.? Within the left ovary is a predominantly anechoic cystic lesion with posterior acoustic enhancement measuring 5.5 x 5.0 by 5.1 cm. There are likely a few thin septations and layering debris. ? Other:? No pathologic free abdominal or pelvic fluid. ? ? IMPRESSION:? ? Complex left ovarian cyst measuring up to 5.1 cm most consistent with a hemorrhagic cyst. ?Recommend follow-up in approximately 6-12 weeks.? No evidence of torsion. ? ? ? We strive to produce accurate, complete, and clear reports of imaging services. To assist us in improving patient care, this report was composed using standard report templates and voice recognition software. Therefore, it may contain abnormal punctuation, insertions and/or omissions. Occasional wrong-word or sound-alike substitutions may occur. Though we review the report and make efforts to correct it, we do recommend that the report be read carefully in proper context to recognize any text inaccuracies. ? ? Dictated by: Naseem Salcido D.O. on 12/31/2021 at 11:33 ? ? Approved by: Naseem Salcido D.O. on 12/31/2021 at 11:42?? MDM Narrative Medical decision making narrative: Patient does have hematuria but no other signs of an infection. This is somewhat skewed because she has been on antibiotics for the past several days. Urine culture was pending the time of discharge. CT scan shows no signs of kidney stones. She is not retaining urine. She does have a lesion around her pancreas which she was informed of and instructed that she needs to follow-up with her primary doctor regarding this and that was not related to her presenting symptoms today. She does have a large left ovarian cyst. She states that she knows she has had a cyst on the left side. She has had an ultrasound the end of last year but she thought it was only 2 cm. Is much larger today. There is no signs of torsion. Does appear to be a hemorrhagic cyst. We did discuss this with her. I suspect that her urinary urgency and dysuria she is having is most likely related to irritation from the hematuria. Given the fact that she has been on both Macrobid and Bactrim recently and with the way that her urinalysis appears today we will hold on starting any new antibiotics for now. We wait for the culture results. She was informed that we will contact her we needed to start any antibiotics. She expressed understanding of follow- up with regard to the ovarian cyst and also the pancreatic lesion. Will start her on Ditropan states this helps with the bladder spasms. She will follow-up with her primary doctor with regard to the hematuria as well. She was given return precautions. She expressed understanding and agreement. Discharge Plan Departure Patient Disposition: Home Clinical Impression: Hematuria, Dysuria, Ovarian cyst, Pancreatic lesion Instructions: DI for Hematuria, DI for Dysuria -- Adult Activity Restrictions/Additional Instructions: Be sure that you increase your fluid intake. You do need follow-up with your primary doctor with regard to both the ovarian cyst the lesion that was found on the pancreas today on the CT scan and the hematuria. Take the medication as directed. Return to the emergency department for any new or worsening symptoms. Prescriptions: New oxybutynin chloride [Ditropan XL] 5 mg tablet extended release 24 hr 5 mg PO DAILY Qty: 14 0RF No Action Zyrtec 10 mg capsule 10 mg PO DAILY PRN0RF norethindrone (contraceptive) 0.35 mg tablet 0.35 mg PO DAILY Qty: 84 6RF Rx Instructions: Take once daily at same time every day. fluticasone propionate [Flonase Allergy Relief] 50 mcg/actuation [place],Suspension 2 spray INTRANASAL DAILY 0RF Referrals: Amanda Marley ARNP [Primary Care Provider] - Visit Report Forms: Patient Portal/API
--- NOTE | 2021-12-31 10:24 | PC.NURSE ---
250 cc urine to empty bladder, bladder scan 63cc urine.
--- NOTE | 2021-12-31 10:58 | DI.CT.S_ITS ---
PROCEDURE: CT KIDNEY URETER BLADDER (KUB) INDICATIONS: flank pain with hematuria eval for stone TECHNIQUE: Axial sections were acquired from the lung bases to the pubic symphysis. Coronal and sagittal reformats were performed. For radiation dose reduction, the following was used: automated exposure control, adjustment of mA and/or kV according to patient size. COMPARISON: [facility], CT, CT ABDOMEN PELVIS W CON, 01/10/2021, 16:12. FINDINGS: Image quality: Excellent. Lung bases: Unremarkable. Heart: No significant findings. URINARY: Right Kidney: Unremarkable. No stones origin or hydronephrosis. Right Ureter: No hydroureter. Left Kidney: Unremarkable. No evidence of stones or hydronephrosis. Left Ureter: No hydroureter. Bladder: Normal wall thickness. No stones. ABDOMEN: Liver: Diffuse hypoattenuation. No focal abnormality. Gallbladder: Surgically absent. Biliary ducts: Unremarkable. Pancreas: Hypoattenuating lesion within the head of the pancreas measuring 2.1 centimeters. Spleen: Unremarkable. Adrenal Glands: Unremarkable. Stomach and Bowel: Stomach, small bowel loops, and colon are unremarkable. Peritoneum: No abnormal intraperitoneal fluid. No free air. Ventral Wall: Small fat containing umbilical hernia. Abdominal Nodes: No enlarged retroperitoneal or mesenteric lymph nodes. Vessels: Aorta and inferior vena cava are normal in size. PELVIS: Pelvic Organs: Large hypodense ovarian cystic lesion with dense layering attenuation. This measures approximately 4.7 x 5.7 x 6.3 centimeters. Pelvic Nodes: Unremarkable. Miscellaneous: No inguinal hernias are seen. Bones: No acute osseous abnormality. Mild degenerative changes of the spine. No aggressive appearing osseous lesion. IMPRESSION: Large likely hemorrhagic cyst of the left ovary measuring approximately 6.3 centimeters. Consider pelvic ultrasound for further evaluation. Stable 2.1 centimeter hypoattenuating lesion within the pancreatic head . Recommend non emergent outside pancreas MRI for further evaluation. No evidence of urinary tract calcifications or obstructive uropathy. Dictated by: Naseem Salcido D.O. on 12/31/2021 at 10:17 Approved by: Naseem Salcido D.O. on 12/31/2021 at 10:27
--- NOTE | 2021-12-31 11:41 | DI.US.S_ITS ---
PROCEDURE: US PELVIC COMPLETE INDICATIONS: LEFT OVARIAN CYST ON CT TECHNIQUE: Real-time scanning was performed of the pelvic organs, with image documentation. Additional endovaginal scanning was necessary due to incomplete visualization of the adnexal and endometrial structures by transabdominal scanning. COMPARISON: [facility], CT, CT KIDNEY URETER BLADDER (KUB), 12/31/2021, 11:09. [facility], US, US PELVIC COMPLETE, 06/30/2021, 9:59. [facility], US, US PELVIC COMPLETE, 09/06/2021, 16:31. FINDINGS: Uterus: Uterus is anteverted and normal in size at 10.3 x 5.2 x 7.2 cm. The myometrium is homogeneous. The endometrium measures 1.4 cm combined thickness. No suspicious mass. Cervix demonstrates nabothian cysts. Ovaries: The right ovary measures 3.8 x 2.1 x 1.8 cm. The left ovary measures 5.7 x 6.1 x 6.0 cm. Internal arterial and venous waveforms are documented bilaterally. Within the left ovary is a predominantly anechoic cystic lesion with posterior acoustic enhancement measuring 5.5 x 5.0 by 5.1 cm. There are likely a few thin septations and layering debris. Other: No pathologic free abdominal or pelvic fluid. IMPRESSION: Complex left ovarian cyst measuring up to 5.1 cm most consistent with a hemorrhagic cyst. Recommend follow-up in approximately 6-12 weeks. No evidence of torsion. We strive to produce accurate, complete, and clear reports of imaging services. To assist us in improving patient care, this report was composed using standard report templates and voice recognition software. Therefore, it may contain abnormal punctuation, insertions and/or omissions. Occasional wrong-word or sound-alike substitutions may occur. Though we review the report and make efforts to correct it, we do recommend that the report be read carefully in proper context to recognize any text inaccuracies. Dictated by: Naseem Salcido D.O. on 12/31/2021 at 11:33 Approved by: Naseem Salcido D.O. on 12/31/2021 at 11:42
[2021-12-31 12:33] LABS: Urine Chlamydia NOT DETECTED; Urine N gonorrhoeae NOT DETECTED
[2021-12-31 13:14] VITALS: BP 116/69; PULSE 92; RESP 16; O2SAT 96
== END 2021-12-31 13:15 | disposition home or self-care (01) ==
PROVIDERS: Emergency Provider Emergency Medicine; PCP Nurse Practitioner
DX: N83.202 Unspecified ovarian cyst, left side (principal); R10.2 Pelvic and perineal pain; R31.9 Hematuria, unspecified; R30.0 Dysuria; K86.9 Disease of pancreas, unspecified
CPT/HCPCS: 51798; 74176; 76830; 76856; 81003; 81015; 81025; 87086; 87491; 87591; 99284

== ENCOUNTER → 2022-01-09 16:25 | Outpatient (CLI) | payer OTHER, SELFPAY ==
[2022-01-09 17:19] LABS: Add Manual Diff / Slide Review NO; Basophils Absolute Auto 100 /uL (0-100); Basophils Percent Auto 0.6 % (0-2); Eosinophils Absolute Auto 100 /uL (0-450); Eosinophils Percent Auto 1.4 % (2-4); Hematocrit 33.8 % (36-46); Hemoglobin 11.3 g/dL (12.0-16.0); Lymphocytes Absolute Auto 2600 /uL (1100-4500); Lymphocytes Percent Auto 28.6 % (25-40); Mean Corpuscular HGB Conc 33.6 % (30-36); Mean Corpuscular Hemoglobin 26.6 PG (26-34); Mean Corpuscular Volume 79.4 fL (80-100); Monocytes Absolute Auto 500 /uL (0-900); Monocytes Percent Auto 5.3 % (3-14); Neutrophils Absolute Auto 5900 /uL (1500-7000); Neutrophils Percent Auto 64.1 % (50-75); Platelet Count 376 X10^3/uL (150-400); Red Blood Cell Count 4.25 X10^6/uL (4.0-5.2); Red Cell Distribution Width 15.8 % (11.6-14.8); White Blood Cell Count 9.2 X10^3/uL (4.5-11.0)
[2022-01-09 17:42] LABS: Alanine Aminotransferase 17 IU/L (<35); Albumin 4.6 g/dL (3.5-5.0); Albumin Globulin Ratio 1.5 (1.0-2.8); Alkaline Phosphatase 68 U/L (38-126); Aspartate Aminotransferase 23 IU/L (14-36); Bilirubin Total 0.3 mg/dL (0.2-1.3); Blood Urea Nitrogen 14 mg/dL (7-17); Carbon Dioxide 26 mmol/L (22-32); Chloride 104 mmol/L (98-107); Estimated Glomerular Filt Rate > 60 mL/min (>60); Globulin 3.1 g/dL (1.7-4.1); Glucose 90 mg/dL (70-100); HEMOLYSIS < 15 (0-50); Lipase 49 U/L (23-300); Sodium 137 mmol/L (137-145); Total Protein 7.7 g/dL (6.3-8.2); Triglycerides 197 mg/dL (35-150)
[2022-01-10 06:50] LABS: Cancer (Carbohydrate) Ag 19-9 4 U/mL (0-35)
== END ==
PROVIDERS: PCP Pediatrics; Referring Provider Pediatrics; Visit Provider Pediatrics
DX: K86.89 Other specified diseases of pancreas (principal); N83.209 Unspecified ovarian cyst, unspecified side
CPT/HCPCS: 36415; 80053; 83690; 84478; 85025; 86301

== ENCOUNTER → 2022-02-02 16:11 | Outpatient (CLI) | payer OTHER, SELFPAY ==
--- NOTE | 2022-02-02 16:12 | DI.MRI.S_ITS ---
PROCEDURE: MR ABDOMEN WO/W CON INDICATIONS: PANCREATIC MASS TECHNIQUE: Coronal HASTE, axial 2D FLASH in- and [id number]; axial breath-hold T2 FSE with fat saturation from the hepatic dome to the iliac crests. Oblique coronal thin-slice and radial thick slab HASTE through the biliary system. Dynamic axial VIBE during administration of contrast. Post-contrast coronal VIBE or 2D FLASH with fat saturation from the hepatic dome to the iliac crests. Optional diffusion weighted imaging and ADC may be performed. COMPARISON: [facility], CT, CT KIDNEY URETER BLADDER (KUB), 12/31/2021, 11:09. CT, CT ABDOMEN PELVIS W CON, 01/10/2021, 16:12. FINDINGS: Image quality: Excellent. Pancreas and biliary system: 2.1 x 2.6 cm irregular hypoenhancing mass in the ventral aspect of the pancreatic head demonstrates T1 signal nearly isointense to pancreas, and minimally T2 hyperintense. Abnormal signal remains confined to the pancreatic head. There is no desmoplastic response in the surrounding fat or traction on adjacent structures. T1 out of phase imaging demonstrates heterogeneous signal drop within this region. Pancreatic duct is nondilated and there is classic ductal anatomy. The common duct courses dorsal to the mass and remains normal caliber. No suspicious mass effect. No intrahepatic biliary dilatation. Solid organs: Liver is normal in size and enhancement. Mild diffuse signal drop on T1 out of phase imaging. Gallbladder is surgically absent. Spleen is normal in size and enhancement. No adrenal nodules. Kidneys are normal in size and enhancement, without hydronephrosis. Nodes and vessels: No retroperitoneal or mesenteric adenopathy by size criteria. Numerous small scattered mesenteric nodes. Aorta and inferior vena cava are normal in size. Bowel and peritoneum: Unenhanced bowel loops are normal in caliber throughout. No free fluid. Lung bases: No basal pleural effusions. Heart size is normal. Bones and soft tissues: Surgical changes of prior umbilical surgery. Bone marrow is normal in overall signal. IMPRESSION: 1. Irregular, non defined abnormal signal confined to the ventral pancreatic head. Its signal and enhancement characteristics are most suggestive of focal fat deposition. This is less likely sequelae of prior pancreatitis and less likely neoplasm. This finding is been present for greater than one year. Follow-up in 6-12 months to document stability is recommended. 2. Mild hepatic steatosis. 3. Cholecystectomy. Dictated by: Jessica Bran M.D. on 02/03/2022 at 9:44 Approved by: Jessica Bran M.D. on 02/03/2022 at 10:14
== END ==
PROVIDERS: PCP Pediatrics; Referring Provider Pediatrics; Visit Provider Pediatrics
DX: K86.89 Other specified diseases of pancreas (principal); N83.202 Unspecified ovarian cyst, left side; K76.0 Fatty (change of) liver, not elsewhere classified; Z90.49 Acquired absence of other specified parts of digestive tract
CPT/HCPCS: 74183; A9579

== ENCOUNTER → 2022-02-13 12:36 | Outpatient (CLI) | payer OTHER, SELFPAY | PROVIDERS: PCP Pediatrics; Visit Provider Student in an Organized Health Care Education/Training Program | DX: R30.0 Dysuria (principal) | CPT/HCPCS: 87086 ==

== ENCOUNTER → 2022-02-14 16:46 | Outpatient (CLI) | payer OTHER, SELFPAY ==
--- NOTE | 2022-02-14 16:48 | DI.US.S_ITS ---
PROCEDURE: US PELVIC COMPLETE INDICATIONS: L ovarian Cyst TECHNIQUE: Real-time scanning was performed of the pelvic organs, with image documentation. Additional endovaginal scanning was necessary due to incomplete visualization of the adnexal and endometrial structures by transabdominal scanning. COMPARISON: [facility], , US PELVIC COMPLETE, 12/31/2021, 12:10. FINDINGS: Uterus: Uterus is normal in size at 9.6 x 6.2 x 4.5 cm. The myometrium is heterogeneous. The endometrium measures 3 mm combined thickness. Ovaries: The right ovary measures 3.3 x 2.8 x 2.6 cm. The left ovary measures 2.7 x 2.2 x 2.6 cm. Adjacent to the left ovary, there is a paraovarian cyst that measures up to 2.1 cm, which previously measured up to 5.5 cm. The ovaries have a normal sonographic appearance. No adnexal masses are seen. Other: No pathologic free abdominal or pelvic fluid. IMPRESSION: Resolving, benign-appearing left paraovarian cyst, which has decreased in size from 5.5 cm to 2.1 cm. We strive to produce accurate, complete, and clear reports of imaging services. To assist us in improving patient care, this report was composed using standard report templates and voice recognition software. Therefore, it may contain abnormal punctuation, insertions and/or omissions. Occasional wrong-word or sound-alike substitutions may occur. Though we review the report and make efforts to correct it, we do recommend that the report be read carefully in proper context to recognize any text inaccuracies. Dictated by: Misha Valle M.D. on 02/15/2022 at 9:38 Approved by: Misha Valle M.D. on 02/15/2022 at 9:40
== END ==
PROVIDERS: PCP Pediatrics; Referring Provider Obstetrics & Gynecology; Visit Provider Obstetrics & Gynecology
DX: N83.202 Unspecified ovarian cyst, left side (principal)
CPT/HCPCS: 76856

== ENCOUNTER → 2022-02-18 18:40 | Outpatient (CLI) | payer OTHER, SELFPAY | PROVIDERS: PCP Pediatrics; Visit Provider Student in an Organized Health Care Education/Training Program | DX: R10.2 Pelvic and perineal pain (principal) | CPT/HCPCS: 87086 ==

== ENCOUNTER → 2022-03-02 08:08 | Outpatient (CLI) | payer OTHER, SELFPAY | PROVIDERS: PCP Pediatrics; Visit Provider Obstetrics & Gynecology | DX: N39.0 Urinary tract infection, site not specified (principal) | CPT/HCPCS: 87086 ==

== ENCOUNTER → 2022-04-27 10:16 | Outpatient (CLI) | payer OTHER, SELFPAY ==
[2022-04-27 10:59] LABS: COVID19 -Nasal RAPID Negative (Negative)
== END ==
PROVIDERS: PCP Pediatrics; Visit Provider Obstetrics & Gynecology
DX: Z20.822 Contact with and (suspected) exposure to COVID-19 (principal); Z01.812 Encounter for preprocedural laboratory examination
CPT/HCPCS: 87635

== ENCOUNTER 2022-04-28 08:09 | Day surgery (SDC) | payer OTHER, SELFPAY ==
[2022-04-21 08:57] VITALS: BMI 30.2
[2022-04-28] VITALS (9 sets, daily range): BP systolic 96–124; BP diastolic 62–78; PULSE 80–100; RESP 14–18; TEMP 36.1–37.3; O2SAT 95–99; BMI 30.2
--- NOTE | 2022-04-28 | PATH_ITS ---
[facility] Accession Number: [id number] . 01 Material submitted: . PART A: fallopian tube - BILATERAL FALLOPIAN TUBES PART B: pelvis - PELVIC ADHESTIONS . 01 Diagnosis: A. Bilateral Fallopian Tubes, Bilateral Salpingectomy: 1. Endometriosis. 2. Endosalpingiosis. 3. No evidence of neoplasia. . B. Pelvic Adhesions, Biopsy: Mesothelial-lined fibrovascular tissue with no evidence of neoplasia. MRV 05/04/2022 1617 Local . 01 Electronically signed: . Odalys Coronado MD, Pathologist NPI- [id number] . 01 Gross description: . A. The specimen is received in formalin labeled with the patient's name and bilateral fallopian tubes, and consists of two unoriented fimbriated fallopian tubes measuring 6.3 x 0.9 cm and 7.2 x 1.0 cm. The longer fallopian tube has congested smooth serosa with multiple cystic structures near the fimbriated end measuring up to 1.1 cm in greatest dimension filled with sargent serous fluid. Sectioning reveals an unremarkable stellate lumen. The shorter fallopian tube has congested smooth serosa with multiple cystic structures measuring up to 0.2 cm in greatest dimension. Sectioning reveals an unremarkable stellate lumen. Cleaning Team Member sections to include entire fimbriae and cross-sections are submitted as follows: . A1: Longer fallopian tube. A2: Montour fallopian tube. . B. The specimen is received in formalin labeled with the patient's name and pelvic adhesions, and consists of a sargent translucent membranous soft tissue fragment measuring 2.2 x 0.6 x 0.2 cm. The specimen is submitted entirely in cassette B1. ([id number]) /MRV 05/02/2022 1833 Local . 01 Microscopic: . A. A CD10 immunohistochemical stain was performed on block A1 to characterize cells of interest and highlights stromal cells in areas of interest consistent with endometriosis. The control stain showed appropriate reactivity. . * This test was developed and its performance characteristics determined by [facility]. It has not been cleared or approved by the U.S. Food and Drug Administration. The FDA has determined that such clearance or approval is not necessary. This test is used for clinical purposes. It should not be regarded as investigational or for research. . 01 Pathologist provided ICD-10: R10.2, N80.9 . 01 CPT . 724007, 692596, Q76219 Specimen Comment: A courtesy copy of this report has been sent to [phone] Performed at: 01 [facility] [address] [place] [address], [place], [place] [id number] MD Baltazar Rosas MD Phone: [phone]
[2022-04-28] MEDS: LACTATED RINGERS 1,000 ML 84 ML IV ×2 (09:05→12:52)
--- NOTE | 2022-04-28 10:00 | PM.PREOP ---
Pre-operative Note COVID-19 COVID-19 status: Negative Result date/Date tested (Pos, Neg/Pending): 04/27/22 Criteria for continued procedure: Non-surgical alternatives not available or appropriate per current SOC Interval Note History & Physical reviewed/Exam performed by Physician: Yes Changes to H&P: No
[2022-04-28] MEDS: ACETAMINOPHEN IV 1,000 MG/100 ML VIAL 400 MG IV (10:40)
--- NOTE | 2022-04-28 10:45 | SUR.OPER ---
Lithotomy on padded OR bed, head on pillow, arms padded with gel pad and tucked/secured at sides Legs secured in padded yellow fins stirrups.
--- NOTE | 2022-04-28 10:46 | SUR.OPER ---
Patient voided at 1000, prior to entering OR. Pre-op RN stated patients test was negative.
[2022-04-28] MEDS: BUPIVACAINE 0.5% (PF) VIAL 30 ML INJ (11:17)
[2022-04-28] MEDS: EPINEPHrine 1 MG/ML 0.15 MG INJ (11:18)
[2022-04-28] MEDS: OXYCODONE IR 5 MG TABLET PO (11:46)
--- NOTE | 2022-04-28 12:00 | PM.GYNOP.1 ---
Operative Date/Time/Diagnoses Date of procedure: 04/28/22 Time of procedure: 10:20 Pre-op diagnosis: Chronic pelvic pain Left para-ovarian cyst Request for sterilization Post-op diagnosis: other (Same as above; pelvic peritoneal endometriosis, probable adenomyosis) Procedure & Clinicians Procedure: Procedures Operation Date: 04/28/22 09:45 Actual Procedure Side Surgeon keenan MCGOWAN Laparoscopy w. excision fulguration of endometrial implants, left ParaOvarian Cystectomy & bilateral salpingectomy Juan Chan MD Indications: Radha is a 36-year-old , LMP 11/2021 who presents today with the aforementioned complaints.? The patient has had cyclic pelvic pain for many years which has been attributed to PCOS in the past.? Pelvic ultrasound performed in June of 2021 showed a 1.8 cm unilocular left paraovarian cyst and the patient was initiated on low-dose oral contraceptives.? 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 The pain is primarily left-sided radiates down the leg particularly back in December when she had a 5.5 cm cyst in the left ovary.? In addition she has deep dyspareunia at the time of intercourse and also lingering discomfort for 2-3 days afterwards.? She uses ibuprofen and Tylenol for pain and a trial of tramadol was poorly tolerated.? Patient's most recent ultrasound performed on 02/14/2022 shows: FINDINGS:? ?? Uterus:? Uterus is normal in size at 9.6 x 6.2 x 4.5 cm. The myometrium is heterogeneous. ? The endometrium measures 3 mm combined thickness.? ? Ovaries:? The right ovary measures 3.3 x 2.8 x 2.6 cm. The left ovary measures 2.7 x 2.2 x 2.6 cm.? Adjacent to the left ovary, there is a paraovarian cyst that measures up to 2.1 cm, which previously measured up to 5.5 cm. The ovaries have a normal sonographic appearance.? No adnexal masses are seen. ? Other:? No pathologic free abdominal or pelvic fluid. ? ? IMPRESSION:? Resolving, benign-appearing left paraovarian cyst, which has decreased in size from 5.5 cm to 2.1 cm. The patient has never had laparoscopy.? Pap is current and all Paps previously have been normal. After discussion of all options, the patient has decided to move forward laparoscopy with plans for excision/fulguration of endometrial implants resident, laparoscopic removal of the left paraovarian cyst, and laparoscopic bilateral salpingectomy for elective sterilization.? She presents today for her scheduled surgery. Surgeon: Juan Chan Paint Coating Machine Operator: Chantale Miller Anesthesia Type: General Operative Notes Findings: The anterior cul-de-sac is free of adhesions or endometrial implants. The uterus is normal in size but the surface demonstrates numerous clear blebs highly suggestive of adenomyosis. Both fallopian tubes are normal in appearance but they to have clear implants consistent with endometriosis. Both ovaries are normal in size and shape but there are filmy adhesions in the ovarian fossa on both sides which appeared to be secondary to chronic inflammatory process rather than endometriosis. There were numerous superficial peritoneal implants of endometriosis in the posterior cul-de-sac with extensive scarring of the peritoneal surfaces. In addition there were superficial implants of endometriosis on the sigmoid colon. The upper abdomen is normal to laparoscopic inspection. Closure Type: primary Specimen(s): left tube, right tube and other (Peritoneal adhesions, right ovarian fossa) Estimated blood loss (mL): 10 Blood products transfused: none Procedure in detail: With the patient under satisfactory general anesthesia in the modified dorsal lithotomy position, the perineum, vagina, and abdomen were prepped and draped in the usual fashion for laparoscopy. A pre-surgical safety time-out was then taken in accordance with [facility] protocols. A bivalve speculum was inserted in the vagina and the cervix visualized. The anterior lip of the cervix was then grasped with a single-tooth tenaculum. The endocervical canal was then dilated to 6 mm and a Zumi manipulator was then inserted into the endometrial cavity. The tenaculum and speculum were then removed and preparations were made for laparoscopy. The umbilicus was infiltrated with 0.5% Marcaine with epinephrine and a 1 cm vertical umbilical incision was made in the skin of the inferior umbilicus. A Veress needle was then used to insufflate the abdomen with carbon dioxide and a 5 mm bladeless trocar and sleeve were then placed through the umbilical incision. Appropriate placement of the initial port was confirmed and a 2nd and 3rd 5 mm port was placed in the right and left mid quadrants using a similar technique. Utilizing a 3 puncture laparoscopic technique, the pelvis and upper abdomen were surveyed and photographically documented. A distal left fallopian tube was then grasped and elevated so as to be able to coagulate and divide the fimbria ovarica using the power seal device and that dissection was carried across the mesosalpinx to the cornua where the cornual portion of the tube was coagulated and divided. The fallopian tube was then removed through a 5 mm port after draining the paraovarian cyst that accompany the fallopian tube on the left. Attention was then turned to the right and the distal tube there was grasped and elevated so as to be able to coagulate the fimbria ovarica with the power seal device. The dissection was then carried across the mesosalpinx on the right to the cornua where the cornua was coagulated and divided and the fallopian tube on the right removed through 1 of the 5 mm ports. The adhesions in the right ovarian fossa were excised so as to completely free the ovary. Superficial areas of endometriosis particularly involving the distal portion of the right uterosacral ligament were then fulgurated with bipolar current. Attention was then turned to the left ovarian fossa where the adhesions were coagulated and divided with a power seal device so as to completely free the ovary on the left. Judicious use of bipolar current was then used to destroy the areas of superficial endometriosis in the pelvis and at the completion of the case there were no evident superficial endometriotic implants remaining. The areas of superficial endometriosis involving sigmoid were left in-situ with the plan for postoperative hormonal therapy to treat any residual pelvic and or bowel endometriosis. Pelvis was irrigated thoroughly inspected. There were no other abnormalities or areas of bleeding. The pneumoperitoneum was then vented and the ports removed. The port incisions were closed with 4-0 Monocryl subcuticular stitches and skin glue was applied. Appropriate dressings were then applied the patient was awakened from anesthesia prior to transferred to the PACU for a period of observation and recovery. Complications: none Post-operative Condition: stable Disposition: PACU Plan for aftercare: Routine postoperative care with two week postop visit to be scheduled at which time will discuss initiation of either Lupron Depo or Orilissa for treatment of residual endometriosis.
[2022-04-28] MEDS: ONDANSETRON 4 MG/2 ML INJ IV (12:41)
[2022-04-28] MEDS: APREPITANT 40 MG CAPSULE PO (13:29)
--- NOTE | 2022-04-28 15:48 | SUR.PHASEII ---
1230-PT NAUSEATED AND VOMITING. MEDICATED WITH ZOFRAN AND EMEND. PT REQUESTS SALTINES. STATES RELIEF FROM NAUSEA. IT FEELS BETTER TO SIT UP
== END 2022-04-28 13:30 | disposition home or self-care (01) ==
PROVIDERS: PCP Pediatrics; Referring Provider Obstetrics & Gynecology; Visit Provider Obstetrics & Gynecology
PROC: (CPT 58661; principal; 2022-04-28 09:45)
DX: N83.292 Other ovarian cyst, left side (principal); Z30.2 Encounter for sterilization; N80.3 Endometriosis of pelvic peritoneum; K21.9 Gastro-esophageal reflux disease without esophagitis; F41.9 Anxiety disorder, unspecified; N80.2 Endometriosis of fallopian tube; N94.89 Other specified conditions associated with female genital organs and menstrual cycle
CPT/HCPCS: 58661; 58662; 00840; 81025; J0131; J0171; J1100; J1170; J1885; J2405; J2704; J8501

== ENCOUNTER → 2022-07-17 14:23 | Outpatient (CLI) | payer OTHER, SELFPAY | PROVIDERS: PCP Family Medicine; Visit Provider Physician Assistant Medical | DX: R30.0 Dysuria (principal) | CPT/HCPCS: 87086 ==

== ENCOUNTER → 2022-09-12 15:44 | Outpatient (CLI) | payer OTHER, SELFPAY ==
[2022-09-12 17:20] LABS: Clostridium Difficile Tox PCR Negative for C. diff (Negative)
[2022-09-12 19:33] LABS: Occult Blood 1 Positive (Negative)
[2022-09-12 19:37] LABS: Occult Blood 2 Positive (Negative)
[2022-09-12 19:38] LABS: Occult Blood 3 Positive (Negative)
== END ==
PROVIDERS: PCP Family Medicine; Referring Provider Nurse Practitioner Family; Visit Provider Nurse Practitioner Family
DX: R19.7 Diarrhea, unspecified (principal)
CPT/HCPCS: 82270; 87045; 87493; 87899

== ENCOUNTER → 2022-10-20 13:47 | Outpatient (CLI) | payer OTHER, SELFPAY | PROVIDERS: PCP Family Medicine; Visit Provider Urology | DX: N39.0 Urinary tract infection, site not specified (principal); N02.9 Recurrent and persistent hematuria with unspecified morphologic changes; K58.0 Irritable bowel syndrome with diarrhea; N94.6 Dysmenorrhea, unspecified; N80.9 Endometriosis, unspecified; R35.0 Frequency of micturition; R30.0 Dysuria; R10.2 Pelvic and perineal pain; G89.29 Other chronic pain; Z79.3 Long term (current) use of hormonal contraceptives | CPT/HCPCS: 51798; 81002; 87086; 99214 ==

== ENCOUNTER → 2022-10-24 11:37 | Outpatient (CLI) | payer OTHER, SELFPAY | PROVIDERS: PCP Family Medicine; Visit Provider Urology | DX: N02.9 Recurrent and persistent hematuria with unspecified morphologic changes (principal); R35.0 Frequency of micturition; R10.2 Pelvic and perineal pain; G89.29 Other chronic pain | CPT/HCPCS: 51701; 87086 ==

== ENCOUNTER → 2022-10-31 13:41 | Outpatient (CLI) | payer OTHER, SELFPAY ==
--- NOTE | 2022-10-31 14:38 | DI.CT.S_ITS ---
PROCEDURE: CT IVP A/P W/WO INDICATIONS: PERSISTENT HEMATURIA TECHNIQUE: Optional 5 mm thick noncontrast images acquired from the diaphragm to the symphysis pubis. After the administration of intravenous contrast, 5 mm thick images acquired from the diaphragm to the symphysis pubis after a 10-minute delay. 2 mm thick coronal and sagittal reformats were then performed of the kidneys and ureters. For radiation dose reduction, the following was used: automated exposure control, adjustment of mA and/or kV according to patient size. COMPARISON: None. FINDINGS: Image quality: Excellent. Lung bases: Lung bases are clear. Heart size is normal. An intermediate density mass is visualized within the lower inner quadrant of the right breast (series 2/image 1). Urinary system: Both kidneys are normal in size, without hydronephrosis or nephrolithiasis on pre-contrast images. No perinephric fat stranding. There is normal bilateral renal enhancement. Renal calyces appear normal in morphology when filled with contrast. Opacified portions of both ureters demonstrate normal caliber. Bladder wall thickness is normal. No calcified bladder stones. Other solid organs: The liver is diffusely hypodense suggesting fatty infiltration. Gallbladder is surgically absent . Biliary system is non dilated. Pancreas enhances normally. Spleen is normal in size and enhancement. No adrenal nodules. Peritoneum and bowel: Bowel loops demonstrate normal wall thickness and caliber. The appendix is thin walled and gas filled.No free fluid or air. Nodes and vessels: No retroperitoneal or mesenteric adenopathy by size criteria. Aorta and inferior vena cava are normal in size. Abdominal wall: No ventral hernias. Pelvis: No pathologic free pelvic fluid. No inguinal hernias or adenopathy. Bones: No suspicious bony lesions. No vertebral body compression fractures. IMPRESSION: 1. No hydronephrosis, nephrolithiasis, hydroureter, or ureterolithiasis. No suspicious enhancing renal mass lesions or renal collecting system filling defects. 2. No acute intra-abdominal findings. Normal appendix. Dictated by: Margy Alves M.D. on 10/31/2022 at 17:26 Approved by: Margy Alves M.D. on 10/31/2022 at 17:28
== END ==
PROVIDERS: PCP Family Medicine; Referring Provider Urology; Visit Provider Urology
DX: N02.9 Recurrent and persistent hematuria with unspecified morphologic changes (principal); Z90.49 Acquired absence of other specified parts of digestive tract
CPT/HCPCS: 74178; Q9967

== ENCOUNTER → 2022-11-17 14:50 | Outpatient (CLI) | payer OTHER, SELFPAY | PROVIDERS: PCP Family Medicine; Visit Provider Urology | DX: N02.9 Recurrent and persistent hematuria with unspecified morphologic changes (principal); N39.0 Urinary tract infection, site not specified; R35.0 Frequency of micturition | CPT/HCPCS: 52000; 81002; 87086 ==

== ENCOUNTER → 2022-12-11 09:16 | Outpatient (CLI) | payer OTHER, SELFPAY ==
[2022-12-11 10:40] LABS: Alanine Aminotransferase 36 IU/L (<35); Albumin 4.5 g/dL (3.5-5.0); Albumin Globulin Ratio 1.3 (1.0-2.8); Alkaline Phosphatase 63 U/L (38-126); Aspartate Aminotransferase 36 IU/L (14-36); Bilirubin Total 0.6 mg/dL (0.2-1.3); Blood Urea Nitrogen 9 mg/dL (7-17); Calcium 9.1 mg/dL (8.4-10.2); Carbon Dioxide 23 mmol/L (22-32); Chloride 104 mmol/L (98-107); Cholesterol 194 mg/dL (140-199); Estimated Glomerular Filt Rate > 60 mL/min (>60); Globulin 3.4 g/dL (1.7-4.1); Glucose 90 mg/dL (70-100); HDL Cholesterol 30 mg/dL (40-60); HEMOLYSIS < 15 (0-50); LDL Cholesterol Calculated 126 mg/dL (<100); Potassium 4.1 mmol/L (3.4-5.1); Sodium 138 mmol/L (137-145); Total Protein 7.9 g/dL (6.3-8.2); Triglycerides 191 mg/dL (35-150)
[2022-12-11 11:01] LABS: Vitamin D 25 Hydroxy (D3) < 12.8 ng/mL (30.0-100.0)
[2022-12-11 11:14] LABS: TSH w/ Reflex to FT4 0.55 uIU/mL (0.47-4.68)
== END ==
PROVIDERS: PCP Family Medicine; Referring Provider Family Medicine; Visit Provider Family Medicine
DX: E55.9 Vitamin D deficiency, unspecified (principal); R53.83 Other fatigue; R73.9 Hyperglycemia, unspecified
CPT/HCPCS: 36415; 80053; 80061; 82306; 83036; 84443

== ENCOUNTER → 2023-02-20 14:03 | Outpatient (CLI) | payer OTHER, SELFPAY ==
--- NOTE | 2023-02-20 14:04 | DI.MRI.S_ITS ---
PROCEDURE: MR AB PANCREATIC/MRCP PROTOCOL INDICATIONS: f/u pancreatic mass TECHNIQUE: Coronal HASTE through the abdomen, axial 2-D FLASH in- and [id number], and breath-hold T2 FSE with fat saturation through the biliary system and pancreas. Oblique coronal and axial thin-slice HASTE, radial thick-slab HASTE centered on the extrahepatic bile ducts. Intravenous secretin: Not requested. COMPARISON: [facility], MR, MR ABDOMEN WO/W CON, 02/02/2022, 16:43. FINDINGS: Image quality: Suboptimal evaluation due to motion artifact on the contrast enhanced sequences.. Liver: Marked patent steatosis. Gallbladder and biliary tree: Cholecystectomy. No biliary dilation. Spleen: Normal size. Pancreas: In the head of the pancreas, there is a T2 intermediate, T1 hypointense lesion without perceived arterial enhancement or restricted diffusion measuring approximately 1.2 x 1.3 centimeters, previously 1.0 x 0.8 centimeters using similar measuring techniques (series 3, image 46). No pancreatic ductal dilation. Adrenal glands: No adrenal nodules. Kidneys: No hydronephrosis. No solid mass. No complex renal cysts which requires follow-up. Nodes and vessels: No retroperitoneal or mesenteric adenopathy by size criteria. Aorta and inferior vena cava are normal in size. Bowel and peritoneum: Unenhanced bowel loops are normal in caliber. No free fluid. Lung bases: No basal pleural effusions. Heart size is normal. Bones and soft tissues: Small umbilical hernia containing fat.. Bone marrow is of normal overall signal. 1.6 x 0.9 centimeter soft tissue lesion in the inferior, medial right breast (series 14, image 1) IMPRESSION: Slight interval growth of the pancreatic head lesion measuring 1.2 x 1.3 centimeters, previously 1.0 x 0.8 centimeters using similar measuring techniques. Imaging characteristics are mildly concerning for a neuroendocrine tumor. If endoscopic evaluation/FNA has not been performed, consider doing so given slight interval growth. Hepatic steatosis. In the absence of alcohol use or other confounding factors, elevated LFTs may indicate non-alcoholic steatohepatitis (SOARES). 1.6 x 0.9 centimeter soft tissue lesion in the inferior, medial right breast. Findings probably represent a lymph node in this age group. Consider further workup at a diagnostic breast Center. Dictated by: Jose Nguyen M.D. on 02/21/2023 at 10:13 Approved by: Jose Nguyen M.D. on 02/21/2023 at 10:20
== END ==
PROVIDERS: PCP Family Medicine; Referring Provider Family Medicine; Visit Provider Family Medicine
DX: K86.89 Other specified diseases of pancreas (principal); K76.0 Fatty (change of) liver, not elsewhere classified; K42.9 Umbilical hernia without obstruction or gangrene; N63.15 Unspecified lump in the right breast, overlapping quadrants; Z90.49 Acquired absence of other specified parts of digestive tract
CPT/HCPCS: 74183; A9579

== ENCOUNTER → 2023-03-14 12:28 | Outpatient (CLI) | payer OTHER, SELFPAY ==
--- NOTE | 2023-03-14 12:30 | DI.MG.S_ITS ---
BILATERAL DIGITAL DIAGNOSTIC MAMMOGRAM 3D/2D: 03/14/2023 CLINICAL: Baseline exam. Abnormal findings from MRI. Comparison is made to exam dated: 02/20/2023 breast MRI - [facility]. Both breasts are heterogeneously dense, which may obscure small masses (category c / 51-75% glandular tissue). There is a 1.3 cm oval equal density asymmetry in the right breast at 3 o'clock middle depth. This is seen in additional views. This correlates with breast MRI findings. There also is a 1.2 cm oval asymmetry with a circumscribed margin in the right breast at 12 o'clock middle depth. This is seen in additional views. Additionally, there is a 6 mm oval asymmetry in the right axillary tail. There is a possible irregular asymmetry with a spiculated margin in the left breast at 10 o'clock middle depth. This is not seen in additional views. No other significant masses or calcifications are seen in either breast. IMPRESSION: INCOMPLETE: NEEDS ADDITIONAL IMAGING EVALUATION The 1.3 cm oval equal density asymmetry in the right breast at 3 o'clock middle depth is indeterminate. The 1.2 cm oval asymmetry in the right breast at 12 o'clock middle depth is indeterminate. An ultrasound is recommended. The 6 mm oval asymmetry in the right axillary tail most likely is a lymph node and is indeterminate. The possible irregular asymmetry in the left breast at 10 o'clock middle depth most likely is fibrosis and is indeterminate. An ultrasound is recommended. Right breast ultrasound was performed immediately following this exam. Left breast ultrasound was unable to be performed due to scheduling restraints and should be scheduled VERONICA for a later date. Based on the Tyrer Cuzick model (a risk assessment model) the patient's lifetime risk is 10.2% and her 10 year risk is 0.9%. According to the ACR, ACS, and NCCN guidelines, an annual breast MRI exam along with mammogram is recommended if the patient's lifetime risk is 20% or greater. This exam was interpreted at Station ID: [id number]. NOTE: For mammograms, a report in lay terms will be sent to the patient. Approximately 15% of breast malignancies will not be visualized mammographically. In the management of a palpable breast mass, a negative mammogram must not discourage biopsy of a clinically suspicious lesion. Electronically Signed By: Jessica fraser/:03/14/2023 13:50:31 ACR BI-RADS Category 0: Incomplete [id number]
--- NOTE | 2023-03-14 12:30 | DI.US.S_ITS ---
LIMITED ULTRASOUND OF RIGHT BREAST AND AXILLA: 03/14/2023 CLINICAL: Patient returns today to evaluate focal asymmetries in the right breast. Comparison is made to exams dated: 03/14/2023 mammogram and 02/20/2023 breast MRI - [facility]. Color flow ultrasound of the right breast 1 o'clock, 3 o'clock, 10 o'clock, and axilla regions was performed. Rodriguez scale images of the real-time examination were reviewed. There is a 1.1 cm x 1.3 cm x 0.9 cm oval mass with a circumscribed margin in the right breast at 3 o'clock middle depth 5 cm from the nipple. This oval mass is hypoechoic with a well-defined boundary. This correlates with mammography findings. Color flow imaging demonstrates that there is no vascularity present. There also is a 0.7 cm x 1.1 cm x 0.9 cm oval mass with a circumscribed margin in the right breast at 1 o'clock posterior depth 8 cm from the nipple. This oval mass is hypoechoic with a well-defined boundary. This correlates with mammography findings. Color flow imaging demonstrates that there is no vascularity present. Additionally, there is a 6 mm oval mass with a circumscribed margin in the right breast at 10 o'clock middle depth. This oval mass is hypoechoic with a well-defined boundary and posterior acoustic enhancement. This correlates with mammography findings. Color flow imaging demonstrates that there is an adjacent vascularity. No significant abnormalities were seen sonographically in the right axilla. IMPRESSION: PROBABLY BENIGN The 1.3 cm mass in the right breast at 3 o'clock middle depth most likely is a fibroadenoma, corresponds to the mammogram finding, and is probably benign. The 0.7 cm x 1.1 cm x 0.9 cm oval mass in the right breast at 1 o'clock posterior depth corresponds to the mammogram finding, most likely is a fibroadenoma and is probably benign. The 6 mm oval mass in the right breast at 10 o'clock middle depth, corresponds to the mammogram finding, most likely is a lymph node and is probably benign. 6 month follow up mammogram and ultrasound for all three findings is recommended to document stability. The patient should schedule LEFT breast ultrasound to follow up other mammogram findings as soon as possible. Findings and recommendations were conveyed to the patient at time of exam. This exam was interpreted at Station ID: [id number]. Electronically Signed By: Jessica fraser/:03/14/2023 14:19:09 letter sent: Additional Imaging Needed Ultrasound BI-RADS: 3 Probably benign
== END ==
PROVIDERS: PCP Family Medicine; Referring Provider Family Medicine; Visit Provider Family Medicine
DX: N63.15 Unspecified lump in the right breast, overlapping quadrants (principal); R92.8 Other abnormal and inconclusive findings on diagnostic imaging of breast; N64.89 Other specified disorders of breast; N63.12 Unspecified lump in the right breast, upper inner quadrant; N63.11 Unspecified lump in the right breast, upper outer quadrant
CPT/HCPCS: 76642; 77066; G0279

== ENCOUNTER → 2023-04-05 08:36 | Outpatient (CLI) | payer OTHER, SELFPAY ==
--- NOTE | 2023-04-05 08:37 | DI.US.S_ITS ---
LIMITED ULTRASOUND OF LEFT BREAST: 04/05/2023 CLINICAL: Patient returns today to evaluate a focal asymmetry in the left breast. Comparison is made to exams dated: 03/14/2023 mammogram and 02/20/2023 breast MRI - [facility]. Color flow and real-time ultrasound of the left breast 10 o'clock region were performed. No sonographic abnormality is seen in the left breast at 10 o'clock. IMPRESSION: PROBABLY BENIGN No sonographic correlate identified for asymmetry seen in the inner left breast on recent diagnostic mammogram 03/14/2023. Recommend follow up left breast mammogram in August 2023 (6 months from initial mammogram) when patient will be due for follow-up of contralateral right breast findings. Of note, recommend additional spot images of the left breast asymmetry at time of follow-up. Findings and recommendations were conveyed to the patient at the time of imaging completion. This exam was interpreted at Station ID: [id number]. Electronically Signed By: Shanita fonsecab/:04/06/2023 13:37:45 letter sent: Followup Recommended Ultrasound BI-RADS: 3 Probably benign
--- NOTE | 2023-04-05 08:37 | DI.MRI.S_ITS ---
PROCEDURE: MR PELVIS WO/W CON INDICATIONS: endometriosis TECHNIQUE: Coronal HASTE, sagittal breath-hold T2 FSE; axial T1 FSE with and without fat saturation through the pelvis. Optional long- and short-axis uterine nonbreath-hold T2 FSE through the uterus. Sagittal or axial dynamic VIBE during administration of contrast. Post-contrast axial or coronal VIBE/2-D FLASH with fat saturation from the iliac crests to the symphysis. Optional diffusion weighted imaging and ADC may be performed. COMPARISON: [facility], CT, CT IVP A/P W/WO, 10/31/2022, 14:28. [facility], MR, MR AB PANCREATIC/MRCP PROTOCOL, 02/20/2023, 14:20. FINDINGS: Image quality: Good Lower abdomen: No evidence of small bowel obstruction. No pathologic ascites. Bladder: Unremarkable Reproductive organs: The endometrium is nonthickened. No mass is identified. Few small uterine fibroids are present, the largest in the posterior fundal region (FIGO 4), measuring 2.1 x 2.2 x 1.8 centimeters. The cervix is unremarkable. Tiny nabothian cysts are seen. No suspicious cervical mass. The ovaries are prominent bilaterally, with T2 hypointense stroma and multiple follicles. On precontrast T1 weighted images, no definite endometrioma or active T1 hyperintense endometriosis deposits. On T2 weighted images, possible mild adhesions are seen posterior to the cervix, and post proximity to the adjacent sigmoid colon, without obstruction. () Rectum: Unremarkable Vessels and lymph nodes: No aneurysmal vessel identified. No pathologic lymphadenopathy by size criteria. Pelvic wall: Unremarkable Bones: No acute or suspicious osseous finding. IMPRESSION: Fibroid uterus. No endometrioma or T1 intrinsically hyperintense active endometriosis deposits identified. Possible mild adhesions posterior to the cervix, and in close proximity to the adjacent sigmoid colon, without obstruction. Other findings as above. Dictated by: Angel Martins M.D. on 04/06/2023 at 8:58 Approved by: Angel Martins M.D. on 04/06/2023 at 9:07
== END ==
PROVIDERS: PCP Family Medicine; Referring Provider Family Medicine; Visit Provider Family Medicine
DX: R92.8 Other abnormal and inconclusive findings on diagnostic imaging of breast (principal); D25.9 Leiomyoma of uterus, unspecified; F32.81 Premenstrual dysphoric disorder; N80.9 Endometriosis, unspecified; E28.2 Polycystic ovarian syndrome
CPT/HCPCS: 72197; 76642; A9579

== ENCOUNTER → 2023-05-18 11:09 | Outpatient (CLI) | payer OTHER, SELFPAY ==
[2023-05-18 14:04] LABS: Hemoglobin A1C% w Est Avg Glu 6.2 % (4.0-6.0)
== END ==
PROVIDERS: PCP Family Medicine; Referring Provider Family Medicine; Visit Provider Family Medicine
DX: R73.01 Impaired fasting glucose (principal); R31.21 Asymptomatic microscopic hematuria; N80.9 Endometriosis, unspecified; R10.2 Pelvic and perineal pain; R39.9 Unspecified symptoms and signs involving the genitourinary system; G89.29 Other chronic pain
CPT/HCPCS: 36415; 81002; 83036; 99213

== ENCOUNTER → 2023-05-23 11:17 | Outpatient (CLI) | payer OTHER, SELFPAY ==
[2023-05-23 15:40] LABS: Appearance Urine UA CLEAR; Bilirubin Urine UA NEGATIVE (NEGATIVE); Color Urine UA YELLOW; Glucose Urine UA NEGATIVE (Negative); Ketones Urine UA NEGATIVE (NEGATIVE); Leukocyte Esterase Urine UA 2+ (NEGATIVE); Nitrite Urine UA NEGATIVE (Negative); Occult Blood Urine UA 2+ (Negative); Protein Urine UA NEGATIVE (Negative); Urobilinogen Urine UA 0.2 E.U./dL (0.2)
[2023-05-23 15:41] LABS: pH Urine UA 5.5 (4.5-8.0)
[2023-05-23 15:56] LABS: Bacteria Urine Moderate (10-30); Culture Indicated Urine Specimen Cultured; RBC Urine 0-1/HPF (0-5/HPF); Squamous Epithelial Cell Urine 10-30 /HPF (0-5/HPF); Transitional Epi Cells Urine 0-1/HPF (0-5/HPF); WBC Urine 1-5/HPF (0-5/HPF)
== END ==
PROVIDERS: PCP Family Medicine; Referring Provider Urology; Visit Provider Urology
DX: R39.9 Unspecified symptoms and signs involving the genitourinary system (principal); R35.0 Frequency of micturition
CPT/HCPCS: 81001; 87086

== ENCOUNTER → 2023-09-17 08:55 | Outpatient (CLI) | payer OTHER, SELFPAY ==
--- NOTE | 2023-09-17 08:57 | DI.MG.S_ITS ---
BILATERAL DIGITAL DIAGNOSTIC MAMMOGRAM 3D/2D: 09/17/2023 CLINICAL: Follow up from prior breast ultrasound. Comparison is made to exams dated: 03/14/2023 mammogram, 04/05/2023 ultrasound, and 03/14/2023 ultrasound - [facility]. Both breasts are heterogeneously dense, which may obscure small masses (category c / 51-75% glandular tissue). There is a stable 1.4 cm oval equal density asymmetry in the right breast at 3 o'clock middle depth. This is seen in additional views. There also is a stable 1.1 cm oval asymmetry with a circumscribed margin in the right breast at 12 o'clock middle depth. This is seen in additional views. Additionally, there is a stable 6 mm oval asymmetry in the right axillary tail. This is less prominent. There is a possible irregular asymmetry with a spiculated margin in the left breast at 10 o'clock middle depth. This is not seen in additional views. This is not significantly changed. No other significant masses or calcifications are seen in either breast. Mammograms are otherwise stable. IMPRESSION: INCOMPLETE: NEEDS ADDITIONAL IMAGING EVALUATION The 1.4 cm oval equal density asymmetry in the right breast at 3 o'clock middle depth is stable The 1.1 cm oval asymmetry in the right breast at 12 o'clock middle depth is stable. The 6 mm oval asymmetry in the right axillary tail most likely is a lymph node and is less prominent. An ultrasound is recommended to confirm stability. The possible irregular asymmetry in the left breast at 10 o'clock middle depth most likely is fibrosis and is stable. An ultrasound is recommended. Bilateral breast ultrasound was performed immediately following this exam. Based on the Tyrer Cuzick model (a risk assessment model) the patient's lifetime risk is 10.1% and her 10 year risk is 1.0%. According to the ACR, ACS, and NCCN guidelines, an annual breast MRI exam along with mammogram is recommended if the patient's lifetime risk is 20% or greater. This exam was interpreted at Station ID: [id number]. NOTE: For mammograms, a report in lay terms will be sent to the patient. Approximately 15% of breast malignancies will not be visualized mammographically. In the management of a palpable breast mass, a negative mammogram must not discourage biopsy of a clinically suspicious lesion. Electronically Signed By: Jessica fraser/:09/17/2023 10:24:13 ACR BI-RADS Category 0: Incomplete [id number]
--- NOTE | 2023-09-17 08:57 | DI.US.S_ITS ---
ULTRASOUND OF RIGHT BREAST: 09/17/2023 CLINICAL: 6 month follow-up of cysts. Comparison is made to exams dated: 09/17/2023 mammogram, 03/14/2023 ultrasound, 03/14/2023 mammogram, and 02/20/2023 breast MRI - . Ultrasound of the right breast was performed. Rodriguez scale images of the real-time examination were reviewed. There is a 1.2 cm x 1.4 cm x 0.9 cm oval mass with a circumscribed margin in the right breast at 3 o'clock middle depth 5 cm from the nipple. This oval mass is hypoechoic with a well-defined boundary. This correlates with mammography findings. Color flow imaging demonstrates that there is no vascularity present. There also is a 0.7 cm x 1 cm x 1 cm oval mass with a circumscribed margin in the right breast at 1 o'clock posterior depth 8 cm from the nipple. This oval mass is hypoechoic with a well-defined boundary. This abnormality is not significantly changed and correlates with mammography findings. Color flow imaging demonstrates that there is no vascularity present. Additionally, there is a stable 6 mm oval mass with a circumscribed margin in the right breast at 10 o'clock middle depth. This oval mass is hypoechoic with a well-defined boundary and posterior acoustic enhancement. This correlates with mammography findings. Color flow imaging demonstrates that there is adjacent vascularity. IMPRESSION: PROBABLY BENIGN The 1.4 cm mass in the right breast at 3 o'clock middle depth most likely is a fibroadenoma and is probably benign. The 1 cm oval mass in the right breast at 1 o'clock posterior depth most likely is a fibroadenoma and is probably benign. The stable 6 mm oval mass in the right breast at 10 o'clock middle depth most likely is a lymph node and is probably benign. A follow-up right mammogram and an ultrasound in 6 months is recommended to demonstrate stability. Findings and recommendations were conveyed to the patient at time of exam. This exam was interpreted at Station ID: [id number]. Electronically Signed By: Jessica fraser/:09/17/2023 11:04:11 letter sent: Followup Recommended Ultrasound BI-RADS: 3 Probably benign
--- NOTE | 2023-09-17 08:58 | DI.US.S_ITS ---
LIMITED ULTRASOUND OF LEFT BREAST: 09/17/2023 CLINICAL: Patient returns today to evaluate a focal asymmetry in the left breast. Comparison is made to exams dated: 09/17/2023 mammogram, 04/05/2023 ultrasound, 03/14/2023 mammogram, and 02/20/2023 breast MRI - [facility]. Ultrasound of the left breast 10 o'clock region was performed. Rodriguez scale images of the real-time examination were reviewed. No significant abnormalities were seen sonographically in the left breast. Specifically, no finding to correspond to the patient's screening mammographic asymmetry. IMPRESSION: PROBABLY BENIGN No sonographic correlate to the mammogram asymmetry at 10:00. A follow-up mammogram only in 6 months is recommended to demonstrate stability. Findings and recommendations were conveyed to the patient at time of exam. This exam was interpreted at Station ID: [id number]. Electronically Signed By: Jessica fraser/:09/17/2023 10:55:29 letter sent: Followup Recommended Ultrasound BI-RADS: 3 Probably benign
== END ==
LOC: MAMMO 08:55
PROVIDERS: PCP Family Medicine; Referring Provider Family Medicine; Visit Provider Family Medicine
DX: R92.8 Other abnormal and inconclusive findings on diagnostic imaging of breast (principal); N63.15 Unspecified lump in the right breast, overlapping quadrants; N63.12 Unspecified lump in the right breast, upper inner quadrant; N63.11 Unspecified lump in the right breast, upper outer quadrant; N64.89 Other specified disorders of breast; R92.333 Mammographic heterogeneous density, bilateral breasts
CPT/HCPCS: 76642; 77066; G0279

== ENCOUNTER → 2024-06-02 08:57 | Outpatient (CLI) | payer OTHER, SELFPAY ==
--- NOTE | 2024-06-02 08:58 | DI.US.S_ITS ---
LIMITED ULTRASOUND OF RIGHT BREAST AND AXILLA: 06/02/2024 CLINICAL: Patient returns for a 6 month follow up of the right breast. Comparison is made to exams dated: 06/02/2024 mammogram, 09/17/2023 ultrasound, 09/17/2023 mammogram, 03/14/2023 ultrasound, 03/14/2023 mammogram, and 02/20/2023 breast MRI - [facility]. Color flow and real-time ultrasound of the right breast 1 o'clock, 3 o'clock, 10 o'clock, and axilla regions were performed. Rodriguez scale images of the real-time examination were reviewed. There is an oval hypoechoic mass with circumscribed margins at 10 o'clock, 10 cm from the nipple measuring 0.4 x 0.3 x 0.6 cm, stable since 03/14/2023. Finding corresponds to the mammographic finding. There is an oval hypoechoic mass with circumscribed margins at 1 o'clock, 8 cm from the nipple measuring 0.8 x 0.8 x 1.2 cm, not significantly changed since 03/14/2023. Finding corresponds to the mammographic finding. There is an oval hypoechoic mass with circumscribed margins at 3 o'clock, 5 cm from the nipple measuring 1.1 x 0.8 x 1.2 cm, not significantly changed since 03/14/2023. Finding corresponds to the mammographic finding. No abnormal lymph nodes are seen in the axilla. IMPRESSION: PROBABLY BENIGN Right breast oval circumscribed mass at 1 o'clock, 3 o'clock and 10 o'clock are not significantly changed since February 2023. Findings are probably benign. Recommend follow-up mammogram and ultrasound in 12 months to demonstrate over 2 year stability. Findings and recommendations were conveyed to the patient during today's evaluation. This exam was interpreted at Station ID: [id number]. Electronically Signed By: Shanita Donald M.D., Ph.D. eb/:06/11/2024 00:12:30 letter sent: Followup Recommended ACR BI-RADS Category 3: Probably Benign
--- NOTE | 2024-06-02 08:58 | DI.MG.S_ITS ---
BILATERAL DIGITAL DIAGNOSTIC MAMMOGRAM 3D/2D SHORT-TERM FOLLOW-UP: 06/02/2024 CLINICAL: Short term follow up for bilateral breasts. Comparison is made to exams dated: 09/17/2023 mammogram, 03/14/2023 mammogram, and 02/20/2023 breast MRI - [facility]. The breasts are heterogeneously dense, which may obscure small masses (category c / 51-75% glandular tissue). In the right breast, there is a stable 1.4 cm oval mass with a circumscribed margin at 3 o'clock middle depth. This is not significantly changed since 03/14/2023. In the right breast, there is a 1.1 cm oval mass with a circumscribed margin in the right breast at 12 o'clock middle depth. This is not significantly changed since 03/14/2023. In the right breast, there is a stable 0.6 cm oval circumscribed mass in the right axillary tail. This is not significantly changed since 03/14/2023. There is an asymmetry in the left breast inner middle depth, less prominent since 03/14/2023. No prior ultrasound correlate identified. No other significant masses or calcifications are seen in either breast. IMPRESSION: INCOMPLETE: NEED ADDITIONAL IMAGING EVALUATION 1. Right breast oval circumscribed masses at 3 o'clock and 12 o'clock middle depth as well as in the axillary tail, stable since February 2023. An ultrasound is recommended for further evaluation and is scheduled to immediately follow this examination. 2. Left breast asymmetry in the inner middle depth seen on baseline mammogram with decreased prominence since February 2023. No prior ultrasound identified. Finding is probably benign. Recommend follow-up mammogram in 12 months to demonstrate over 2 year stability. Based on the Tyrer Cuzick model (a risk assessment model) the patient's lifetime risk is 10.1% and her 10 year risk is 1.0%. According to the ACR, ACS, and NCCN guidelines, an annual breast MRI exam along with mammogram is recommended if the patient's lifetime risk is 20% or greater. This exam was interpreted at Station ID: [id number]. NOTE: For mammograms, a report in lay terms will be sent to the patient. Approximately 15% of breast malignancies will not be visualized mammographically. In the management of a palpable breast mass, a negative mammogram must not discourage biopsy of a clinically suspicious lesion. Electronically Signed By: Shanita Donald M.D., Ph.D. eb/:06/10/2024 23:53:01 letter sent: Additional Imaging Needed ACR BI-RADS Category 0: Incomplete: Need Additional Imaging Evaluation
== END ==
PROVIDERS: PCP Family Medicine; Referring Provider Family Medicine; Visit Provider Family Medicine
DX: R92.8 Other abnormal and inconclusive findings on diagnostic imaging of breast (principal); R92.333 Mammographic heterogeneous density, bilateral breasts; N63.12 Unspecified lump in the right breast, upper inner quadrant; N63.11 Unspecified lump in the right breast, upper outer quadrant; N63.15 Unspecified lump in the right breast, overlapping quadrants
CPT/HCPCS: 76642; 77066; G0279

== ENCOUNTER → 2024-07-31 13:09 | Outpatient (CLI) | payer OTHER, SELFPAY | PROVIDERS: PCP Family Medicine; Visit Provider Urology | DX: N02.9 Recurrent and persistent hematuria with unspecified morphologic changes (principal); N80.9 Endometriosis, unspecified; R39.9 Unspecified symptoms and signs involving the genitourinary system; R33.9 Retention of urine, unspecified; F41.9 Anxiety disorder, unspecified | CPT/HCPCS: 51798; 81002; 87086; 99214 ==

== ENCOUNTER → 2024-12-16 15:07 | Outpatient (CLI) | payer OTHER, SELFPAY ==
--- NOTE | 2024-12-16 15:10 | DI.US.S_ITS ---
PROCEDURE: US PELVIC COMPLETE INDICATIONS: HX ADENOMYOSIS; CHRONIC PAIN TECHNIQUE: Real-time scanning was performed of the pelvic organs, with image documentation. Additional endovaginal scanning was necessary due to incomplete visualization of the adnexal and endometrial structures by transabdominal scanning. COMPARISON: [facility], US, US PELVIC COMPLETE, 02/14/2022, 17:55. FINDINGS: Uterus: Uterus is anteverted and normal in size at 8.6 x 5.6 x 7.0 cm. The myometrium is heterogeneous. The endometrium measures 7.1 mm combined thickness. IUD is present in appropriate location. Within the right posterior intramural region there are 2 areas of heterogeneous echogenicity measuring 2.3 x 1.7 x 3.0 cm and 2.4 x 2.1 x 2.2 cm. Ovaries: The right ovary measures 3.7 x 3.5 x 2.8 cm, with a calculated ovarian volume of 18.7 cc. The left ovary measures 2.3 x 3.0 x 2.9 cm, with a calculated ovarian volume of 10.3 cc. The ovaries have a normal sonographic appearance. Less than 12 follicles can be seen in each ovary. No adnexal masses are seen. Other: No pathologic free abdominal or pelvic fluid. IMPRESSION: Uterine fibroids. IUD in appropriate location. We strive to produce accurate, complete, and clear reports of imaging services. To assist us in improving patient care, this report was composed using standard report templates and voice recognition software. Therefore, it may contain abnormal punctuation, insertions and/or omissions. Occasional wrong-word or sound-alike substitutions may occur. Though we review the report and make efforts to correct it, we do recommend that the report be read carefully in proper context to recognize any text inaccuracies. Dictated by: Karlene Wang M.D. on 12/16/2024 at 18:53 Approved by: Karlene Wang M.D. on 12/16/2024 at 18:54
== END ==
PROVIDERS: PCP Family Medicine; Referring Provider Obstetrics & Gynecology; Visit Provider Obstetrics & Gynecology
DX: N92.6 Irregular menstruation, unspecified (principal); N80.03 Adenomyosis of the uterus; N94.89 Other specified conditions associated with female genital organs and menstrual cycle; D25.1 Intramural leiomyoma of uterus
CPT/HCPCS: 76830; 76856

== ENCOUNTER 2025-02-12 06:05 | Day surgery (SDC) | payer OTHER, SELFPAY ==
[2025-02-06 13:41] VITALS: BMI 34.7
[2025-02-12] VITALS (17 sets, daily range): BP systolic 109–138; BP diastolic 55–89; PULSE 90–117; RESP 12–19; TEMP 36.3–37.6; O2SAT 93–98; BMI 34.1
--- NOTE | 2025-02-12 | PATH_ITS ---
[facility] Accession Number: [id number] No. of containers..01 Tissue . 01 Material submitted: . uterus - CERVIX,UTERUS . 01 Diagnosis: CERVIX AND UTERUS, HYSTERECTOMY: Unremarkable cervix; no dysplasia. Endometrium with inactive glands and pseudodecidualized stroma, consistent with progesterone effect. Leiomyomata. No malignancy. [facility] 02/16/2025 1647 Local . 01 Electronically signed: . Haydee Navarrete MD, Pathologist NPI- [id number] . 01 Gross description: . Received in formalin with two identifiers and cervix, uterus, is an intact uterus (126 grams, 9.6 cm superior to inferior, 6.2 cm medial to lateral, 5.1 cm anterior to posterior), with attached cervix (3.3 x 3.0 cm) with no additional adnexa. . The ectocervix is sargent and finely granular with a patulous os 1.4 cm in diameter. The anterior paracervical margin is inked blue while the posterior paracervical margin is inked black. The serosa is sargent and slightly roughened with no lesions identified. . The endocervical canal has sargent herringbone mucosa and measures 3.0 cm in length. The endometrial cavity measures 3.6 cm from cornu to cornu, and 4.2 cm in length. An IUD is present in the proper anatomical position; however the strings are embedded within the endometrial cavity and are not present within the endocervical canal. The endometrium is pink-sargent and ragged averaging 0.3 cm thick. The myometrium is pink-sargent and trabecular measuring up to 2.6 cm in maximum thickness. Multiple well-circumscribed white whorled nodules ranging from 0.3 to 1.8 cm in greatest dimension located intramurally. No hemorrhage or necrosis is identified. . Payroll Secretary sections are submitted as follows: A1: Anterior cervix. A2: Posterior cervix. A3: Anterior full thickness section. A4: Posterior full thickness section. A5-A6: Nodules. ([id number]) /LOREN 02/13/2025 0919 Local . 01 Pathologist provided ICD-10: D25.9 . 01 CPT . 805632 Specimen Comment: A courtesy copy of this report has been sent to [phone] Performed at: [address] [id number] MD Baltazar Rosas MD Phone: [phone]
[2025-02-12] MEDS: ACETAMINOPHEN 325 MG TABLET 975 MG PO (07:00)
[2025-02-12] MEDS: LACTATED RINGERS 1,000 ML 42 ML IV ×2 (07:02→08:34)
[2025-02-12] MEDS: SCOPOLAMINE 1 PATCH TOP (07:10)
[2025-02-12 07:15] LABS: Hematocrit 41.9 % (36-46); Hemoglobin 13.8 g/dL (12.0-16.0); Mean Corpuscular HGB Conc 33.0 % (30-36); Mean Corpuscular Hemoglobin 28.2 PG (26-34); Mean Corpuscular Volume 85.5 fL (80-100); Platelet Count 196 X10^3/uL (150-400)
[2025-02-12] MEDS: ONDANSETRON 4 MG/2 ML INJ IV ×2 (07:16→11:46)
--- NOTE | 2025-02-12 07:27 | PM.PREOP ---
Pre-operative Note COVID-19 COVID-19 status: Not tested Interval Note History & Physical reviewed/Exam performed by Physician: Yes Changes to H&P: No
[2025-02-12] MEDS: CEFAZOLIN 2 GM/100 ML PREMIX 100 ML IV (08:02)
[2025-02-12] MEDS: BUPIVACAINE 0.25% (PF) VIAL 30 ML INJ (08:52)
--- NOTE | 2025-02-12 09:02 | SUR.OPER ---
Lithotomy on padded OR bed. [place] Pad Positioner under torso. Head on pillow, arms padded and tucked at sides.strap over chest. Legs secured in padded yellow fins stirrups.
--- NOTE | 2025-02-12 11:32 | PM.GYNOP.1 ---
Operative Date/Time/Diagnoses Date of procedure: 02/12/25 Time of procedure: 08:15 Pre-op diagnosis: Chronic pelvic pain Adenomyosis (suspected diagnosis) History of endometriosis Abnormal uterine bleeding Post-op diagnosis: same Procedure & Clinicians Procedure: Procedures Operation Date: 02/12/25 07:45 Actual Procedure Side Surgeon p Robotic Laparoscopic Total Hysterectomy Juan Chan MD Indications: Radha was seen recently in follow-up of her chronic pelvic pain, previously diagnosed endometriosis, and adenomyosis. She continues to be improved following insertion of a Mirena IUD but that improvement is lessening in the sense that her periods and pelvic pain or both becoming more difficult to tolerate. She continues to have pain down the anterior left thigh and a pelvic MR was performed 11/03/2024 by her neurologist to has been treating her with Botox injections. In addition the patient states that she has significant pain with defecation which lasts up to 30 minutes after effective defecation occurs. The uterus and bilateral ovaries are within normal limits but a prominence of the vessels in both adnexa was noted which can be seen with pelvic congestion syndrome. The patient is really struggling again with her pelvic pain and would like to discuss definitive therapy. Her most recent ultrasound pelvic imaging performed 12/16/2024 shows: FINDINGS: Uterus: Uterus is anteverted and normal in size at 8.6 x 5.6 x 7.0 cm. The myometrium is heterogeneous. The endometrium measures 7.1 mm combined thickness. IUD is present in appropriate location. Within the right posterior intramural region there are 2 areas of heterogeneous echogenicity measuring 2.3 x 1.7 x 3.0 cm and 2.4 x 2.1 x 2.2 cm. Ovaries: The right ovary measures 3.7 x 3.5 x 2.8 cm, with a calculated ovarian volume of 18.7 cc. The left ovary measures 2.3 x 3.0 x 2.9 cm, with a calculated ovarian volume of 10.3 cc. The ovaries have a normal sonographic appearance. Less than 12 follicles can be seen in each ovary. No adnexal masses are seen. Other: No pathologic free abdominal or pelvic fluid. IMPRESSION: Uterine fibroids. IUD in appropriate location. We again had an extensive discussion regarding the patient's chronic pelvic pain as well as probable adenomyosis and the possibility of pelvic congestion syndrome. The patient would very much like to move to definitive therapy in the form of hysterectomy with ovarian preservation and excision or fulguration of endometriosis noted at the time of hysterectomy. In addition will evaluate the left pelvic sidewall carefully for any endometriotic lesions which may be contributing to the patient's pain radiating into the L3-4 dermatome. Following those discussions, the patient expresses a desire to move forward with total laparoscopic hysterectomy and bilateral salpingectomy move with plans for careful evaluation of the pelvis for any residual or new endometriotic implants which will be excised or fulgurated at that time. She presents today for her scheduled surgery. Surgeon: Juan Chan Paper Reclaiming Machine Operator: Barby Sanon Anesthesia Type: General Operative Notes Findings: The uterus is upper limits of normal size and somewhat irregular in contour. There was some scarring in the anterior cul-de-sac but no evidence of endometriosis is seen in either the anterior or posterior cul-de-sac. The left pelvic sidewall showed no evidence of endometriosis or scarring in an area that may contribute to radicular pain at L3-4. The ovaries appeared to be normal and there is some mild dilation of parametrial veins on both sides. The remainder of the abdomen pelvis normal to laparoscopic inspection. Closure Type: primary Specimen(s): left tube, right tube and uterus Applied: none Estimated blood loss (mL): 125 Blood products transfused: none Procedure in detail: With the patient in modified dorsal lithotomy position preparations were made by prepping and draping the patient in usual manner for vaginal surgery and insertion of Julien catheter. A pre-surgical time-out was then taken in accordance with [facility] policy. A bivalve speculum was then placed in the vagina and the cervix visualized. The anterior lip of the cervix was then grasped with a single-tooth tenaculum. The uterus was sounded to 8 cm, the endocervical canal dilated slightly, and a VCare uterine manipulator with a medium colpotomy cup was placed. The umbilicus was then infiltrated with 0.5% Marcaine with epinephrine. A 1 cm umbilical incision was made transversely and a Veress needle was used to insufflate the abdominal cavity with carbon dioxide. Once the abdomen was appropriately insufflated, a 5 mm trocar and sleeve were then placed through the umbilical incision. The scope was placed through the trocar and the initial assessment of the intra-abdominal contents carried out. A 2nd and 3rd 5 mm port was then placed 1st in the right mid quadrant from then the left mid quadrant by infiltration of the skin and subcutaneous tissues, a 1 cm transverse incision and insertion of the 5 mm bladeless port. Using a 3 puncture technique, the abdomen and pelvis were inspected laparoscopy and photographically documented. Uterus is mobilized with the VCare manipulator and attention turned to the left adnexa. The distal tube was then grasped and the fimbria varicose divided after coagulation with the PowerSeal device. The dissection was then carried out toward the cornua and the fallopian tube amputated. The tube was removed through a 5 mm port and dissection was then carried down using the PowerSeal device so as to divide the utero-ovarian ligament and the round ligament with blunt and sharp dissection of the broad down to the level of the uterine artery. The uterine artery was then skeletonized after development of a bladder flap, coagulated, and divided. Once hemostasis was assured on the left side attention was turned to the right and the tube, utero-ovarian ligament, round ligament, and broad ligament were dissected in a fashion exactly the same as it had been on the left. The right uterine artery was then visualized after skeletonization and coagulated and divided. The uterus was seen to betty after coagulation of both your arteries and the cup was identified through the vaginal muscularis at its insertion with the body of the cervix. Circumferential excision of the vaginal cup was accomplished without difficulty using monopolar current and the uterus mobilized. The uterus was then removed through the vagina and the vaginal cuff closed [id number] with a series of 0 Vicryl [id number] stitches. Hemostasis was excellent, the abdomen was re-insufflated, and the pelvis inspected laparoscopically. The pelvis was inspected for any abnormality or bleeding, and the ureters were each seen to be peristalsing freely. With complete hemostasis assured, the pneumoperitoneum was vented and the ports removed. All of the 5 mm ports were then closed with 4-0 Monocryl on the skin using inverted interrupted sutures. Skin glue was placed and after the glue was dried, an appropriate dressing was applied. The case was then terminated, the patient awakened, and then transferred to PACU after having tolerated the procedure well. Complications: none Post-operative Condition: stable Disposition: PACU Plan for aftercare: Routine PACU care with possible discharge later today if patient is tolerating diet and oral pain medications sufficiently relieves her pain.
[2025-02-12] MEDS: OXYCODONE IR 5 MG TABLET PO (11:37)
[2025-02-12] MEDS: hydrOXYzine 50 MG/ML INJ 25 MG IM (11:41)
[2025-02-12] MEDS: HYDROMORPHONE 1 MG INJ IV (11:46)
[2025-02-12] MEDS: HYDROMORPHONE 2 MG TABLET PO ×2 (14:51→23:41)
--- NOTE | 2025-02-12 16:37 | PC.NURSE ---
Pt arrived to floor at 1210 Alert/sleepy, easily arousable 3 lap site & one small midline CDI IVF infusing as per orders. Med x 1 for discomfort w/good relief. Taking liquids well. SBA to BR; Call light w/in reach, pt calls appropriately for needs Continue w/plan of care.
[2025-02-12] MEDS: KETOROLAC 30 MG/ML VIAL IV ×2 (16:55→23:39)
[2025-02-12] MEDS: ACETAMINOPHEN 325 MG TABLET 650 MG PO (18:22)
[2025-02-12] MEDS: HYDROMORPHONE 2 MG INJ IV (20:16)
[2025-02-13] MEDS: HYDROMORPHONE 2 MG TABLET PO ×2 (03:04→08:42)
[2025-02-13] MEDS: KETOROLAC 30 MG/ML VIAL IV (05:00)
[2025-02-13] MEDS: ACETAMINOPHEN 325 MG TABLET 650 MG PO (06:39)
[2025-02-13 07:00] LABS: Add Manual Diff / Slide Review NO; Hematocrit 36.0 % (36-46); Hemoglobin 12.0 g/dL (12.0-16.0); Lymphocytes Absolute Auto 2400 /uL (1100-4500); Mean Corpuscular HGB Conc 33.2 % (30-36); Mean Corpuscular Hemoglobin 28.6 PG (26-34); Mean Corpuscular Volume 86.1 fL (80-100); Platelet Count 288 X10^3/uL (150-400)
--- NOTE | 2025-02-13 07:54 | PM.DS.IH.1 ---
History of Present Illness History of Present Illness Date Patient Seen: 02/13/25 Time Patient Seen: 07:55 Chief complaint: Menorrhagia, uterine fibroids, adenomyosis Narrative: Radha was seen recently in follow-up of her chronic pelvic pain, previously diagnosed endometriosis, and adenomyosis. She continues to be improved following insertion of a Mirena IUD but that improvement is lessening in the sense that her periods and pelvic pain or both becoming more difficult to tolerate. She continues to have pain down the anterior left thigh and a pelvic MR was performed 11/03/2024 by her neurologist to has been treating her with Botox injections. In addition the patient states that she has significant pain with defecation which lasts up to 30 minutes after effective defecation occurs. The uterus and bilateral ovaries are within normal limits but a prominence of the vessels in both adnexa was noted which can be seen with pelvic congestion syndrome. The patient is really struggling again with her pelvic pain and would like to discuss definitive therapy. Her most recent ultrasound pelvic imaging performed 12/16/2024 shows: FINDINGS: Uterus: Uterus is anteverted and normal in size at 8.6 x 5.6 x 7.0 cm. The myometrium is heterogeneous. The endometrium measures 7.1 mm combined thickness. IUD is present in appropriate location. Within the right posterior intramural region there are 2 areas of heterogeneous echogenicity measuring 2.3 x 1.7 x 3.0 cm and 2.4 x 2.1 x 2.2 cm. Ovaries: The right ovary measures 3.7 x 3.5 x 2.8 cm, with a calculated ovarian volume of 18.7 cc. The left ovary measures 2.3 x 3.0 x 2.9 cm, with a calculated ovarian volume of 10.3 cc. The ovaries have a normal sonographic appearance. Less than 12 follicles can be seen in each ovary. No adnexal masses are seen. Other: No pathologic free abdominal or pelvic fluid. IMPRESSION: Uterine fibroids. IUD in appropriate location. We again had an extensive discussion regarding the patient's chronic pelvic pain as well as probable adenomyosis and the possibility of pelvic congestion syndrome. The patient would very much like to move to definitive therapy in the form of hysterectomy with ovarian preservation and excision or fulguration of endometriosis noted at the time of hysterectomy. In addition will evaluate the left pelvic sidewall carefully for any endometriotic lesions which may be contributing to the patient's pain radiating into the L3-4 dermatome. Following those discussions, the patient expresses a desire to move forward with total laparoscopic hysterectomy and bilateral salpingectomy move with plans for careful evaluation of the pelvis for any residual or new endometriotic implants which will be excised or fulgurated at that time. She presents now for her scheduled surgery. Discharge Providers Provider Date of admission: 02/12/2025 Discharge Date: 02/13/25 Primary care physician: Leida Goodwin DO Discharge provider: Juan Chan MD Summary Hospital Course Discharge Diagnosis: Menorrhagia Chronic pelvic pain Uterine fibroids Adenomyosis Status post robotically assisted total laparoscopic hysterectomy Hospital Course: The patient was admitted on 02/12/2025 and underwent an uneventful robotically assisted total laparoscopic hysterectomy. No endometriosis or significant pelvic scarring was seen at the time of surgery. Full details of the procedure well summarized on my operative note of 02/12/2025. Following surgery the patient has done exceptionally well with prompt return of bowel and bladder functions, she is ambulating independently, tolerating regular diet, and her pain is well-controlled with the oral pain medication she will be discharged at this time to home in an afebrile normotensive condition after counseling regarding precautionary symptoms, limitations of activity, medications, and plans for follow-up which will be in 2 weeks. Medications at discharge will include resumption of all preadmission medications as well as hydromorphone 2 mg p.o. q.4-6 hours as needed pain, dispensed 15 with no refills, and Cipro 500 mg p.o. b.i.d. x5 days for UTI prophylaxis following catheterization. Status at Discharge Functional status at discharge: independent ambulation Overall status at discharge: patient is progressing back to baseline Time Spent with Patient Time spent: Less than 30 minutes Exam Vital Signs (past 8 hours): Oxygen Delivery Method Nasal Cannula Oxygen Flow Rate 0 Const General: cooperative and comfortable Nutritional Appearance: average body habitus Orientation: alert and oriented x3 HENMT Head: normal to inspection, atraumatic and abrasion Ears: hearing grossly normal bilaterally Face and sinus: face symmetric Eyes General: appearance normal, both eyes and all related structures Conjunctivae: conjunctivae normal Sclera: sclerae normal EOM: EOM intact bilaterally Neck Neck: normal visual inspection Resp Effort & Inspection: normal respiratory effort and able to speak in complete sentences Auscultation: clear to auscultation bilaterally Cardio Rate: regular rate Rhythm: regular rhythm Heart Sounds: S1 normal, S2 normal and no murmurs GI Inspection: normal to inspection and incision (Surgical dressings clean and dry) Palpation: soft, no hepatosplenomegaly and tender (Mild, diffuse postsurgical tenderness) External Female Exam: other (No significant bleeding noted) Extrem General: no calf tenderness Psych Appearance: grossly normal Mental Status: mental status grossly normal Speech and Movement: speech and movement normal Mood: congruent mood Affect: normal affect Attitude: cooperative Thought Process: normal Thought Content: normal Judgment: judgment good Objective Labs 02/13/25 06:30 Labs: Laboratory Results - last 24 hr 02/12/25 02/13/25 11:39 06:30 WBC 12.8 H RBC 4.19 Hgb 12.0 Hct 36.0 MCV 86.1 MCH 28.6 MCHC 33.2 RDW 13.8 Plt Count 288 Neut % (Auto) 75.3 H Lymph % (Auto) 18.9 L Logan % (Auto) 5.1 Eos % (Auto) 0.2 L Baso % (Auto) 0.5 Neut # (Auto) 9600 H Lymph # (Auto) 2400 Logan # (Auto) 700 Eos # (Auto) 0 Baso # (Auto) 100 POC Whole Bld Glucose 157 H PFSH Medical History (Updated 01/12/25 @ 15:34 by Leida Goodwin DO) Obesity (BMI 35.0-39.9 without comorbidity) Pelvic congestion Incomplete emptying of bladder Asymptomatic microscopic hematuria Persistent hematuria Lower urinary tract symptoms IFG (impaired fasting glucose) Pancreatic mass Irritable bowel syndrome Anxiety Urinary frequency Mass of pancreas Vaginal delivery Surgical History History of cholecystectomy Social History household members: spouse Smoking Status: Never smoker alcohol intake: former substance use type: does not use Discharge Assessment & Plan Assessment and Plan Assessment: Menorrhagia Chronic pelvic pain Uterine fibroids Adenomyosis Status post robotically assisted total laparoscopic hysterectomy Plan of Treatment: Routine postoperative care with follow-up planned for 2 weeks after surgery or as needed Discharge Plan Discharge Plan Provider Discharge Comment: Please review the written instructions you received when you were discharged from the hospital. Your follow-up appointment is scheduled for 2 weeks after your surgery and I look forward to seeing you then. If however in the meanwhile you have any issues, concerns, or questions, please contact me either through the office phone at [phone], or via the patient portal. Discharge orders & Medications Discharge Orders: Discharge (Order); Ordered 02/13/25 Ordered By: Juan Chan Prescriptions: New hydromorphone 2 mg Tablet 2 mg PO Q4-6H PRN (Reason: Pain, Moderate (4-6)) Qty: 15 0RF ciprofloxacin HCl [Cipro] 500 mg tablet 500 mg PO BID 5 Days Qty: 10 0RF Continued cholecalciferol (vitamin D3) 50 mcg (2,000 unit) capsule 50 mcg PO DAILY Qty: 90 3RF lidocaine 5 % adhesive patch,medicated 1 patch topical DAILY Qty: 30 12RF Rx Instructions: leave on most painful area for up to 12 hrs nortriptyline 10 mg capsule 10 mg PO BEDTIME Qty: 30 5RF paroxetine HCl 20 mg tablet 20 mg PO DAILY Qty: 90 0RF diphenoxylate-atropine 2.5-0.025 mg tablet See Rx Instructions PO DAILY PRN (Reason: diarrhea) Qty: 40 1RF Rx Instructions: 1-2 tabs up to QID orally daily PRN; Max 8 per day. Stop after 10 days if no change. Reduce dose when sx controlled. cetirizine 10 mg tablet 10 mg PO DAILY Qty: 90 0RF Rx Instructions: take one tab twice daily for one week then one time daily glipizide 2.5 mg tablet 2.5 mg PO DAILY Qty: 90 3RF metformin 500 mg tablet extended release 24 hr 500 mg PO DAILY Qty: 90 3RF loperamide [Imodium A-D] 2 mg capsule 2 mg PO BID cyclobenzaprine 5 mg tablet 5 mg PO TID PRN (Reason: muscle spasm) Qty: 60 11RF dicyclomine 20 mg tablet 20 mg PO BID PRN (Reason: abd cramping) Qty: 60 5RF ibuprofen 200 mg Tablet 800 mg PO Q8H PRN (Reason: Pain (Scale Score 4-6)) azelastine 137 mcg (0.1 %) spray,non-aerosol 137 mcg intranasal Q12H PRN (Reason: allergies) Rx Instructions: administer into each nostril Follow up/Referrals: Leida Goodwin DO [Primary Care Provider, Family Practice] Juan Chan MD [Physician, COVERAGE ANALYST] Discharge Health Status Multidrug resistant organism: No MDRO Diet/Activity/Treatments Diet: Diet as Tolerated Activity: As tolerated Other treatments: Qsvr-lbm-mohxkno Tylenol and/or ibuprofen may be used as needed for additional pain relief. Tcma-xoc-cwuooms stool softeners and/or MiraLax may be used as needed for constipation. Skin/Wound/Dressing Care Report to your healthcare provider any signs of infection, such as:: chills, fever, increased pain, unusual drainage and unusual redness Dressing: Dressings should be removed on the morning of 02/14/2025 Visit Report/Discharge Packet Instructions: DI for Hysterectomy, DI for Laparoscopy, DI for Prescription Opioid Use Stand Alone Forms: Surgery Discharge Print Language: Spanish Discharge Data Primary Care Provider: Leida Goodwin Attending Provider: Juan Chan Quality VTE Deep Vein Thrombosis/Pulmonary Embolism Present on Admission: No IH PROFEE Charge Codes Discharge inpatient/observation: [id number]
[2025-02-13 08:00] VITALS: BP 119/68; PULSE 109; RESP 15; TEMP 37; O2SAT 93
[2025-02-13] MEDS: LIDOCAINE 5% PATCH 1 EACH TOP (08:42)
--- NOTE | 2025-02-13 09:10 | CM.DANOTE ---
DCP Assessment Note: Pt is a 39yo female, resident of [place], is admitted s/p hysterectomy. Pt lives in a house with her spouse, Josh. Pt's Primary Care Provider is Dr. Leida Goodwin and insurance is [employer]. Reviewed chart and discussed with multidisciplinary team pt's medical status and initial discharge needs. Per RN, pt independent in room and preparing for discharge home. Discharge orders placed by MD, no needs identified. Plan: Anticipating dc home with spouse on 02/13 or when medically cleared. CM team will follow closely for coordination of discharge plans. Eleni Griffin AURIST Discharge Planning/Care Management Advanced directive, confirm from FAMILY Start: 02/12/25 14:12 Freq: Q24H Status: Active Protocol: Document 02/12/25 14:12 KMD (Rec: 02/12/25 16:34 KMD Desktop) Advance Directive, confirm on record Time 16:33 Person contacted Pt Copy received No Advanced directive No available on record CM Discharge Assessment Start: 02/12/25 06:43 Freq: Status: Active Protocol: Document 02/13/25 09:07 MW (Rec: 02/13/25 09:09 MW Desktop) Discharge Planning Assessment Assigned Discharge LESLIE Knowles [employer] Worker DPOA/Assigned Josh, Spouse Designee Name Contact Information [phone] Advance Directives? No Advance Directives No on File History Provided By Patient Prior Living House Arrangements Household Members spouse Independent with ADL Yes 's Is patient alert and Yes oriented? Discharge Plan Home Transportation Spouse Arrangement Referrals Initiated None needed Review Status In Process Please Provide Date 02/13/25 Initial DC Assessment Was Performed Next Review Type Continued Stay Review
--- NOTE | 2025-02-13 12:28 | PC.NURSE ---
Pt discharged home at 1157, escorted off floor in wheelchair accompanied by spouse and hospital staff. IVs removed, discharge teaching completed including new medications, follow up appointments and worsening symptoms. Patient left the floor with all belongings.
== END 2025-02-13 12:30 | disposition home or self-care (01) ==
LOC: OR 06:06 → AC 06:06
PROVIDERS: Nurse Anesthetist, Certified Registered; PCP Family Medicine; Referring Provider Obstetrics & Gynecology; Visit Provider Obstetrics & Gynecology
PROC: 0UT94ZZ Resection of Uterus, Percutaneous Endoscopic Approach (ICD-10-PCS; CPT 58571; principal; 2025-02-12 07:45)
DX: R10.2 Pelvic and perineal pain (principal); N93.9 Abnormal uterine and vaginal bleeding, unspecified; Z87.898 Personal history of other specified conditions; D25.9 Leiomyoma of uterus, unspecified
CPT/HCPCS: 58571; 36415; 81025; 82962; 85025; 85027; J0330; J0690; J1100; J1171; J1885; J2250; J2405; J2704; J3010; J3410; J3490

== ENCOUNTER → 2025-06-01 12:04 | Outpatient (CLI) | payer OTHER, SELFPAY ==
[2025-02-12 13:00] VITALS: BMI 34.1
--- NOTE | 2025-06-01 12:06 | DI.MG.S_ITS ---
US breast RT limited, MM diagnostic mammo BI: 06/01/2025 BI-RADS: 4A CLINICAL: 39-year old female for bilateral diagnostic mammogram and right diagnostic breast ultrasound. The patient presents for a follow-up. Tyrer-Cuzick lifetime risk of 5.7%. No personal or first-degree family history of breast cancer. The patient had a prior right breast biopsy. PRIOR EXAMS 06/02/2024, 09/17/2023, 04/05/2023, 03/14/2023. MAMMOGRAPHY TECHNIQUE: 2D and 3D (tomosynthesis) digital mammographic views obtained, with additional images as needed for full coverage. Current study was also evaluated with a Computer Aided Detection (CAD) system. ULTRASOUND TECHNIQUE Real-time acuña scale and color doppler imaging of the area of clinical interest was performed with image documentation. Right targeted breast ultrasound of the area of clinical interest and the axilla was performed with image documentation. DENSITY C. The breasts are heterogeneously dense, which may obscure small masses. MAMMOGRAPHY FINDINGS Right (finding-3): Inner at 3:00, Middle depth, measuring 1.3cm: Correlating with prior imaging concern there is a circumscribed, oval, equal-density mass present. There are new associated grouped punctate calcifications. Right (finding-2): Upper Inner at 1:00, Middle depth, measuring 1.1cm: Correlating with prior imaging concern there is a circumscribed, oval, equal-density mass present that is unchanged in size and appearance. Right (finding-1): Upper Outer at 10:00, Posterior depth, measuring 0.6cm: Correlating with prior imaging concern there is a circumscribed, oval, equal- density mass present that is unchanged in size and appearance. Left: CC only, Inner, Middle depth: Correlating with prior imaging concern, there is a stable asymmetry seen only on one view. This finding has demonstrated two years of stability and is consistent with a benign etiology. ULTRASOUND FINDINGS Right (finding-3): Inner at 3:00, 5 cm from nipple, measuring 1.1 x 0.7 x 1.4 cm - previously measuring (03/14/2023) 1.1 x 0.9 x 1.3 cm: There is an oval, circumscribed, hypoechoic mass that is parallel. This is likely a fibroadenoma. Doppler shows no vascularity. Right (finding-1): Upper Outer at 10:00, 10 cm from nipple, measuring 0.5 x 0.2 x 0.3 cm - previously measuring (03/14/2023) 0.5 x 0.4 x 0.6 cm: There is an oval, circumscribed, hypoechoic cyst vs solid mass that is parallel. Doppler shows no vascularity. This finding has demonstrated two years of stability and is consistent with a benign etiology. Right (finding-2): Upper Inner at 1:00, 8 cm from nipple, measuring 0.9 x 0.7 x 0.7 cm - previously measuring (03/14/2023) 0.9 x 0.7 x 1.1 cm: There is an oval, circumscribed, hypoechoic mass that is parallel. This is likely a fibroadenoma. Doppler shows no vascularity. This finding has demonstrated two years of stability and is consistent with a benign etiology. Right: Axilla: No abnormal lymph nodes are seen in the axilla. IMPRESSION: Right (Mass): Inner at 3:00, 5 cm from nipple, measuring 1.1 x 0.7 x 1.4 cm - previously measuring (03/14/2023) 1.1 x 0.9 x 1.3 cm * Low Suspicion for Malignancy. Left * No evidence of malignancy with benign findings. RECOMMENDATIONS Right: Inner at 3:00, 5 cm from nipple * Ultrasound-guided biopsy for further evaluation (A biopsy is recommended given interval development of punctate calcifications on mammogram). Left * Annual screening mammography in one year. COMMENTS: Findings and recommendations were conveyed to the patient during today's evaluation by Dr. Wang. OVERALL ASSESSMENT CATEGORY BI-RADS-4: Suspicious. ELECTRONICALLY SIGNED: Anu Garcia M.D. on 06/01/2025 at 02:53:01 PM PT Interpreting Station ID: [id number]
== END ==
PROVIDERS: PCP Family Medicine; Referring Provider Family Medicine; Visit Provider Family Medicine
DX: R92.8 Other abnormal and inconclusive findings on diagnostic imaging of breast (principal); R92.1 Mammographic calcification found on diagnostic imaging of breast; N63.15 Unspecified lump in the right breast, overlapping quadrants; N63.12 Unspecified lump in the right breast, upper inner quadrant; N63.11 Unspecified lump in the right breast, upper outer quadrant; N64.89 Other specified disorders of breast; E66.9 Obesity, unspecified; R73.01 Impaired fasting glucose; R92.333 Mammographic heterogeneous density, bilateral breasts; R73.03 Prediabetes; Z71.3 Dietary counseling and surveillance; Z68.35 Body mass index [BMI] 35.0-35.9, adult
CPT/HCPCS: 76642; 77066; 83540; 83550; 85025; 97803; G0279

== ENCOUNTER → 2025-06-01 16:48 | Outpatient (CLI) | payer OTHER, SELFPAY ==
[2025-02-12 13:00] VITALS: BMI 34.1
--- NOTE | 2025-06-03 10:35 | DIET.OUTPTC ---
Dietary Outpatient Consult Consult Date:06/01/25 Assessment:? 39 y F referred to dietitian for impaired fasting glucose, prediabetes Recent A1c 6.3%. Pt reports it is consistently between 6.1-6.3% for years. Is getting it check [id number] per PCP orders. Notes reducing CHO intake by watching portions at lunch, dinner, and snacks. Does low carb tortilla now instead. No soda. Packing lunch more instead of eating what children eat (heavier in CHO). watching portion sizes when having bananas. Is able to walk more now as recovering from surgery. Has noted clothes are feeling different. Preference is not to use scale as measure of success, rather how feeling/clothes fit. GI symptoms: -IBS dx in 2020 - unable to tolerate some higher FODMAP foods, including higher fructose fruits without getting diarrhea -hx gallbladder removed in 2013 - since then has had diarrhea T5-6 that is bright yellow color within 30 mins of eating - thus pt on Immodium 1-2x/day which makes it so she only has 1-2 formed BMs daily, otherwise 6+ loose stools, would like to continue on this med, has previously tried bile acid binders per GI doctor, but lead to extreme constipation and discomfort and loss of appetite -Lactose intolerance, red meat causes constipation, egg yolk results in diarrhea and sharp abd. pain, most veggies need to be cooked to prevent diarrhea Gets hives if eats shrimp. 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 Diet Recall: B-7am-egg whites, 1/4 c cheddar cheese, 2 slices ham, praveen zoila 100 kcal ww bread 2 slices (22g CHO) snack-string cheese/nuts [id number] wrap with low carb tortilla and lettuce and cucumber in it with additional veg or fruit OR 4 oz protein, 1/2 c rice, and 1/2 cup green beans with fruit D-4 oz protein/fish/chk, 1/2 c starch like potatoes or rice, 1/2 c veg uses airfryer with oil spray Avg- 80 g protein, 20-26 g fiber Fluids: 1 c coffee with cream and sugar, water 01/12/2514:58 PCP's office Height 5 ft 1 in Weight 185 lb 6 oz BMI 35.0 Reports a +15-20 lb weight gain over last year Activity:post surgery, per doctors recc Nutrition Diagnosis:? (improving) Physical inactivity r/t pain associated with endometriosis and s/p surgery aeb activity restrictions currently, and unable to do activity over past year d/t severe pain (improving) Food and nutrition related knowledge deficit r/t limited previous formal nutrition educ for blood glucose management aeb pt reports wanting to learn more about nutrition to manage prediabetes Interventions:? Discussed and provided appropriate resources on the following: -Reviewed changes in dietary intake made and activity changes -Discussed recent lab values -Addressed pt questions regarding supplements -Reviewed pairing CHO with protein sources Goals: -Continue aiming for set carb amounts in meals and snacks -Continue building up exercise routine as able per doctor -If having nighttime snack, always pair with protein source EER:? 25-30 g fiber, 60-70 g protein (1g per kg adjusted IBW), 30-45 g CHO at meals, 15 g CHO at snacks Monitoring/Evaluations:? F/u in 3 months to assess new A1c and adjust nutrition recc as needed Electronically Signed by: Ambreen Marley Clinical Dietitian [address] [address]
== END ==
PROVIDERS: PCP Family Medicine; Referring Provider Family Medicine
DX: R73.03 Prediabetes (principal); Z71.3 Dietary counseling and surveillance; Z68.35 Body mass index [BMI] 35.0-35.9, adult
CPT/HCPCS: 97803

== ENCOUNTER 2025-07-06 11:22 | Emergency (ER) | payer OTHER, SELFPAY ==
[2025-02-12 13:00] VITALS: BMI 34.1
[2025-07-06 11:40] VITALS: BP 128/97; PULSE 92; RESP 18; TEMP 36.6; O2SAT 100; BMI 35.2
[2025-07-06] MEDS: ONDANSETRON 4 MG/2 ML INJ IV (12:01)
[2025-07-06 12:18] LABS: Add Manual Diff / Slide Review NO; Hematocrit 40.5 % (36-46); Hemoglobin 13.5 g/dL (12.0-16.0); Lymphocytes Absolute Auto 2300 /uL (1100-4500); Mean Corpuscular HGB Conc 33.4 % (30-36); Mean Corpuscular Hemoglobin 27.6 PG (26-34); Mean Corpuscular Volume 82.7 fL (80-100); Platelet Count 305 X10^3/uL (150-400)
[2025-07-06 12:21] LABS: Alanine Aminotransferase 129 IU/L (<35); Albumin 4.7 g/dL (3.5-5.0); Albumin Globulin Ratio 1.3 (1.0-2.8); Alkaline Phosphatase 81 U/L (38-126); Blood Urea Nitrogen 10 mg/dL (7-17); Calcium 9.1 mg/dL (8.4-10.2); Carbon Dioxide 26 mmol/L (22-32); Chloride 102 mmol/L (98-107); Estimated Glomerular Filt Rate > 60 mL/min (>60); Globulin 3.6 g/dL (1.7-4.1); Glucose 123 mg/dL (70-99); HEMOLYSIS < 15 (0-50); Lipase 37 U/L (23-300); Potassium 3.5 mmol/L (3.4-5.1); Sodium 138 mmol/L (137-145); Total Protein 8.3 g/dL (6.3-8.2)
--- NOTE | 2025-07-06 12:31 | ED_ITS ---
HPI - Nausea/Vomiting/Diarrhea General Chief complaint: Nausea/Vomiting/Diarrhea Stated complaint: Throwing up, 3 days Time Seen by Provider: 07/06/25 12:29 Source: patient Mode of arrival: Family Vehicle History of Present Illness HPI Narrative: Patient here with . Has had nonbloody nausea vomiting for the past 3 days. Started Sunday night. 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 Denies any heart attack strokes or diabetes. Feeling better after Zofran. Has a headache now. Normal saline started with triage. Related Data Home Medications ?Medication ?Instructions ?Recorded ?Confirmed ibuprofen 200 mg tablet 800 mg PO Q8H PRN Pain (Scal e 04/28/22 02/25/25 Score 4-6) loperamide 2 mg capsule (Imodium 2 mg PO BID Diarrhea 06/13/23 02/25/25 A-D) azelastine 137 mcg (0.1 %) nasal 137 mcg intranasal Q1 2H PRN 07/31/24 02/25/25 spray allergies Previous Rx's ?Medication ?Instructions ?Recorded cetirizine 10 mg tablet 10 mg PO DAILY #90 tabs 12/28 11/19 cholecalciferol (vitamin D3) 50 50 mcg PO DAILY Vit D #90 caps 07/24/23 mcg (2,000 unit) capsule cyclobenzaprine 5 mg tablet 5 mg PO TID PRN muscle spa sm #60 02/11/24 tabs dicyclomine 20 mg tablet 20 mg PO BID PRN abd crampin g #60 03/21/24 tabs lidocaine 5 % topical patch 1 patch topical DAILY #30 ea 07/25/24 glipizide 2.5 mg tablet 2.5 mg PO DAILY blood sugars #90 01/12/25 tabs metformin 500 mg tablet,extended 500 mg PO DAILY #90 t abs 01/12/25 release 24 hr hydromorphone 2 mg tablet 2 mg PO Q4-6H PRN Pain, Mode rate 02/13/25 (4-6) #15 tabs paroxetine HCl 20 mg tablet 20 mg PO DAILY for anxiety #90 tabs 06/15/25 diphenoxylate-atropine 2.5 See Rx Instructions PO MARLEE Y PRN 06/24/25 mg-0.025 mg tablet diarrhea #40 tabs nortriptyline 10 mg capsule 10 mg PO BEDTIME #30 caps 06/24/25 ondansetron 4 mg disintegrating 4 mg PO Q6H PRN nausea and 07/06/25 tablet vomiting #20 tabs Allergies Allergy/AdvReac Type Severity Reaction Status Date / Time tramadol Allergy Intermediate Difficulty Verified 07/06/25 11:41 Breathing Review of Systems Review of Systems Narrative: GENERAL: Negative chills, fatigue, malaise, fever, sweats. HEENT: Negative sinus pain, ear pain, sore throat RESPIRATORY: Negative dyspnea, cough CARDIOVASCULAR: Negative chest pain, palpitations GASTROINTESTINAL: Positive vomiting, nausea, negative abdominal pain : Negative dysuria, frequency, hematuria MUSCULOSKELETAL: Negative muscle or bony pain SKIN: Negative rash, skin lesions NEUROLOGIC: Negative weakness, numbness ROS Unobtainable: All systems reviewed & are unremarkable except as noted in HPI and below Patient History Medical History (Updated 07/06/25 @ 14:26 by Adama Elise MD) Obesity (BMI 35.0-39.9 without comorbidity) Pelvic congestion Incomplete emptying of bladder Asymptomatic microscopic hematuria Persistent hematuria Lower urinary tract symptoms IFG (impaired fasting glucose) Pancreatic mass Irritable bowel syndrome Anxiety Urinary frequency Mass of pancreas Vaginal delivery Surgical History History of cholecystectomy Social History household members: spouse Smoking Status: Former smoker alcohol intake: former substance use type: does not use Smoking Status: Former smoker tobacco type: cigarettes alcohol intake frequency: holidays/special occasions only Exam Narrative Exam Narrative: GENERAL: in no distress, not toxic not dyspneic HEAD: Normocephalic. EYES: Pupils equal round ENT: Mucous membranes moist. NECK: Trachea midline. CARDIOVASCULAR: Regular rate and rhythm RESPIRATORY: Clear to auscultation. Breath sounds equal bilaterally. No wheezes, rales, or rhonchi. GASTROINTESTINAL: Abdomen soft, nontender no peritoneal signs no right upper quadrant tenderness no epigastric tenderness. No McBurney point tenderness. No peritoneal signs no guarding or rebound. Bowel sounds are present. BACK: No flank tenderness. EXTREMITIES: No gross deformities. NEURO: AOx4. Clear speech SKIN: Warm and dry PSYCH: Not anxious, is cooperative Initial Vital Signs Initial Vital Signs: Vital Signs Temperature 97.8 F 07/06/25 11:40 Pulse Rate 92 H 07/06/25 11:40 Respiratory Rate 18 07/06/25 11:40 Blood Pressure 128/97 H 07/06/25 11:40 Pulse Oximetry 100 07/06/25 11:40 Oxygen Delivery Method Room Air 07/06/25 11:40 Course Orders Ordered: Discontinued Medications Sodium Chloride (Normal Saline 0.9%) 1,000 mls @ 1,000 mls/hr IV BOLUS ONE Stop: 07/06/25 13:35 Last Infusion: 07/06/25 13:18 Dose: Infused Documented By: Admin: 07/06/25 12:45 Dose: 1,000 mls/hr Documented By: CAYETANO Ketorolac Tromethamine (Ketorolac 30 Mg/Ml Vial) 15 mg IV NOW ONE Stop: 07/06/25 12:37 Last Admin: 07/06/25 12:44 Dose: 15 mg Documented By: CAYETANO Ondansetron HCl (Ondansetron 4 Mg/2 Ml Inj) 4 mg IV NOW PRN PRN Reason: Nausea And Vomiting Last Admin: 07/06/25 12:01 Dose: 4 mg Documented By: CAYETANO Ondansetron HCl (Ondansetron 4 Mg Odt) 4 mg PO NOW PRN PRN Reason: Nausea And Vomiting Vital Signs Vital signs: Vital Signs - 8 hr 07/06/25 11:40 07/06/25 14:23 Temperature 97.8 F Pulse Rate 92 H 77 Respiratory Rate 18 18 Blood Pressure 128/97 H 122/78 Pulse Oximetry 100 99 Oxygen Delivery Method Room Air Room Air MDM - Nausea/Vomiting/Diarrhea Lab Data 07/06/25 11:54 07/06/25 11:54 Labs: Lab Results 07/06/25 07/06/25 Range/Units 11:54 12:48 WBC 8.9 (4.5-11.0) X10^3/uL RBC 4.89 (4.0-5.2) X10^6/uL Hgb 13.5 (12.0-16.0) g/dL Hct 40.5 (36-46) % MCV 82.7 (80-100) fL MCH 27.6 (26-34) PG MCHC 33.4 (30-36) % RDW 14.0 (11.6-14.8) % Plt Count 305 (150-400) X10^3/uL Neut % (Auto) 68.4 (50-75) % Lymph % (Auto) 25.5 (25-40) % [place] % (Auto) 4.5 (3-14) % Eos % (Auto) 1.1 L (2-4) % Baso % (Auto) 0.5 (0-2) % Neut # (Auto) 6100 (6908-2882) /uL Lymph # (Auto) 2300 (6664-8643) /uL [place] # (Auto) 400 (0-900) /uL Eos # (Auto) 100 (0-450) /uL Baso # (Auto) 0 (0-100) /uL Sodium 138 (137-145) mmol/L Potassium 3.5 (3.4-5.1) mmol/L Chloride 102 (98-107) mmol/L Carbon Dioxide 26 (22-32) mmol/L BUN 10 (7-17) mg/dL Creatinine 0.59 (0.52-1.04) mg/dL Estimated GFR > 60 (>60) mL/min BUN/Creatinine Ratio 16.9 (6-22) Glucose 123 H (70-99) mg/dL Calcium 9.1 (8.4-10.2) mg/dL Total Bilirubin 0.6 (0.2-1.3) mg/dL AST 116 H (14-36) IU/L ALT 129 H (<35) IU/L Alkaline Phosphatase 81 (38-126) U/L Total Protein 8.3 H (6.3-8.2) g/dL Albumin 4.7 (3.5-5.0) g/dL Globulin 3.6 (1.7-4.1) g/dL Albumin/Globulin Ratio 1.3 (1.0-2.8) Lipase 37 (23-300) U/L Urine RBC 0-1/hpf (0-5/HPF) Urine WBC 5-10/hpf H (0-5/HPF) Ur Squamous Epith Cells 10-30 /hpf H (0-5/HPF) Urine Bacteria Few (2-10) H (None) Ur Culture Indicated? Specimen cultured Vol Urine Centrifuged 10ml (spun) Chlamy pneumoniae PCR Not detected (Not Detect) Adenovirus (PCR) Not detected (Not Detect) B. pertussis DNA (PCR) Not detected (Not Detect) B.parapertussis DNA PCR Not detected (Not Detecte) Coronavirus OC43 (PCR) Not detected (Not Detect) Coronavirus HKU1 (PCR) Not detected (Not Detect) Coronavirus 229E (PCR) Not detected (Not Detect) SARS-CoV-2 (PCR) Not detected (Not Detecte) Coronavirus NL63 (PCR) Not detected (Not Detect) Human Metapneumovir PCR Not detected (Not Detect) Influenza Type A (PCR) Not detected (Not Detect) Influenza Type B (PCR) Not detected (Not Detect) M. pneumoniae (PCR) Not detected (Not Detect) Parainfluenza 1 (PCR) Not detected (Not Detect) Parainfluenza 2 (PCR) Not detected (Not Detect) Parainfluenza 3 (PCR) Not detected (Not Detect) Parainfluenza 4 (PCR) Not detected (Not Detect) RSV (PCR) Not detected (Not Detect) Entero/Rhino (PCR) Not detected (Not Detect) Point of Care Testing Test Results Negative Urine Dip Bedside Urine Glucose Negative Bedside Urine Bilirubin - Negative Bedside Urine Ketone - Negative Urine Specific [place] 1.010 Bedside Urine Occult Blood + Bedside Urine pH 6.0 Bedside Urine Protein - Negative Bedside Urine Urobilinogen - Negative Bedside Urine Nitrite - Negative Bedside Urine Leukocytes - Negative Esterase MDM Narrative Medical decision making narrative: Patient here with . Has had nonbloody nausea vomiting for the past 3 days. Started Antonio night. 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 Denies any heart attack strokes or diabetes. Feeling better after Zofran. Has a headache now. Normal saline started with triage. MDM After history and exam, CBC CMP urinalysis test Zofran normal saline Toradol respiratory panel, no CT imaging exam is reassuring no abdominal pain tenderness laboratory studies reassuring Differential considered: Includes but not limited to rhino virus COVID influenza RSV viral gastroenteritis Medical records reviewed: No recent visit for this complaint Lab Test results independently reviewed as above. Pertinent findings: WBC 8.9 hemoglobin 13.5 sodium 138 potassium 3.5 BUN 10 creatinine 0.59 glucose 123 AST 116 ALT 129, respiratory panel negative urinalysis WBC 5-10 Consultations: None indicated at this time Re-evaluations: 2:00 p.m.. Patient feeling much better. Reviewed results with patient and . Family has been having similar symptoms as well. Liver enzymes elevated could be due to viral infection. Needs recheck with family doctor patient has no abdominal pain at this time. She has had her gallbladder removed. Return precautions reviewed and they desire discharge home Discussion: Appropriate for discharge home exam is reassuring. No CT imaging indicated his abdomen is nontender. Liver enzymes likely due to viral infection. Work note provided. Patient feels much better she desires discharge home. Diagnosis: Acute vomiting Discharge Plan Departure Patient Disposition: Home Clinical Impression: Acute vomiting Instructions: DI for Vomiting -- Adult Activity Restrictions/Additional Instructions: Your exam and laboratory studies are reassuring. Your liver enzymes were slightly elevated and this can be due to viral infection. Keep well hydrated. Work note has been provided for you. See family doctor this week for re- evaluation. Return if worse if any questions or concerns. Prescription nausea medication has been sent to your pharmacy to continue. Return if worse if any questions or concerns. Prescriptions: New ondansetron 4 mg tablet,disintegrating 4 mg PO Q6H PRN (Reason: nausea and vomiting) Qty: 20 0RF No Action cholecalciferol (vitamin D3) 50 mcg (2,000 unit) capsule 50 mcg PO DAILY Qty: 90 3RF lidocaine 5 % adhesive patch,medicated 1 patch topical DAILY Qty: 30 12RF Rx Instructions: leave on most painful area for up to 12 hrs paroxetine HCl 20 mg tablet 20 mg PO DAILY Qty: 90 0RF nortriptyline 10 mg capsule 10 mg PO BEDTIME Qty: 30 5RF diphenoxylate-atropine 2.5-0.025 mg tablet See Rx Instructions PO DAILY PRN (Reason: diarrhea) Qty: 40 1RF Rx Instructions: 1-2 tabs up to QID orally daily PRN; Max 8 per day. Stop after 10 days if no change. Reduce dose when sx controlled. cetirizine 10 mg tablet 10 mg PO DAILY Qty: 90 0RF Rx Instructions: take one tab twice daily for one week then one time daily glipizide 2.5 mg tablet 2.5 mg PO DAILY Qty: 90 3RF metformin 500 mg tablet extended release 24 hr 500 mg PO DAILY Qty: 90 3RF loperamide [Imodium A-D] 2 mg capsule 2 mg PO BID cyclobenzaprine 5 mg tablet 5 mg PO TID PRN (Reason: muscle spasm) Qty: 60 11RF dicyclomine 20 mg tablet 20 mg PO BID PRN (Reason: abd cramping) Qty: 60 5RF hydromorphone 2 mg Tablet 2 mg PO Q4-6H PRN (Reason: Pain, Moderate (4-6)) Qty: 15 0RF ibuprofen 200 mg Tablet 800 mg PO Q8H PRN (Reason: Pain (Scale Score 4-6)) azelastine 137 mcg (0.1 %) spray,non-aerosol 137 mcg intranasal Q12H PRN (Reason: allergies) Rx Instructions: administer into each nostril Referrals: Leida Goodwin DO [Primary Care Provider, Family Practice] Stand Alone Forms: Patient Portal/API, Work Release Note
[2025-07-06] MEDS: KETOROLAC 30 MG/ML VIAL 15 MG IV (12:44)
[2025-07-06] MEDS: SODIUM CHLORIDE 0.9% 1,000 ML 1000 ML IV (12:45)
[2025-07-06 13:21] LABS: Culture Indicated Urine Specimen Cultured
[2025-07-06 13:56] LABS: Coronavirus NL 63 Not Detected (Not Detect); SARS- CoV-2 Not Detected (Not Detecte)
[2025-07-06 14:23] VITALS: BP 122/78; PULSE 77; RESP 18; O2SAT 99
[2025-07-06 14:49] VITALS: BP 146/85; PULSE 82; RESP 16; O2SAT 100
== END 2025-07-06 14:50 | disposition home or self-care (01) ==
PROVIDERS: Emergency Provider Emergency Medicine; PCP Family Medicine
DX: R11.2 Nausea with vomiting, unspecified (principal); R19.7 Diarrhea, unspecified; R51.9 Headache, unspecified
CPT/HCPCS: 36415; 80053; 81003; 81015; 81025; 83690; 85025; 87086; 87633; 96361; 96374; 96375; 99284; J1885; J2405; J7030

== ENCOUNTER → 2025-07-22 10:32 | Outpatient (CLI) | payer OTHER, SELFPAY ==
[2025-02-12 13:00] VITALS: BMI 34.1
--- NOTE | 2025-07-22 10:33 | DI.MG.S_ITS ---
MM clip placement RT: 07/22/2025. BI-RADS: None CLINICAL: 39-year old female for right diagnostic mammogram. Tyrer-Cuzick lifetime risk of 5.7%. No personal or first-degree family history of breast cancer. The patient had a prior right breast biopsy. PRIOR EXAMS Mammogram(s): 06/01/2025. Breast Ultrasound(s): 06/01/2025. Eight Other Exams on 06/02/2024, 09/17/2023, 04/05/2023, 03/14/2023. MAMMOGRAPHY TECHNIQUE: 2D and/or 3D (tomosynthesis) digital mammographic views obtained, with additional images as needed for full coverage. DENSITY Right: C. The breast is heterogeneously dense, which may obscure small masses. MAMMOGRAPHY FINDINGS Right: Inner at 3:00, 5 cm from nipple: There is a (Tumark(R) Vision) biopsy marker in targeted location. IMPRESSION: Right * Biopsy marker present. OVERALL ASSESSMENT CATEGORY BI-RADS None: This exam requires no BI-RADS. ELECTRONICALLY SIGNED: Tommy Fowler M.D. on 07/22/2025 at 01:26:50 PM PT Interpreting Station ID: [id number]
--- NOTE | 2025-07-22 10:33 | DI.US.S_ITS ---
US bx breast perc w vac device: 07/22/2025. Rad-Path Correlation: Pending CLINICAL: 39-year old female for right procedure that resulted from diagnostic mammogram on 06/01/2025. Tyrer-Cuzick lifetime risk of 5.7%. No personal or first-degree family history of breast cancer. The patient had a prior right breast biopsy. PRIOR EXAMS Mammogram(s): 06/01/2025. Breast Ultrasound(s): 06/01/2025. Eight Other Exams on 06/02/2024, 09/17/2023, 04/05/2023, 03/14/2023. CONSENT Risks including but not limited to bleeding and infection, benefits and alternatives were discussed with the patient. The patient agreed to the procedure and signed informed consent. Time out procedure was used. ROUTINE Right: Patient positioned in the supine or supine-oblique position, prepped and draped in the usual manner using sterile technique. TECHNIQUE Right: Inner at 3:00, 5 cm from nipple: Procedure: Ultrasound-guided vacuum-assisted biopsy of a mass with Tumark(R) Vision marker placement. Device: 12-gauge vacuum-assisted biopsy instrument. BD EleVation(TM). Approach: Medial. Anesthesia: Local anesthesia obtained using 2%-lidocaine. Secondary local anesthesia obtained using 2%-lidocaine with epinephrine. Skin Entry: Incision with #11 blade. Passes: 4. Specimens: 4. Targeting Confirmation: Real-time Observation and Post-Procedure Imaging. Marker Placement: Tumark(R) Vision marker placed in target location. Post-procedure imaging: Post-procedure imaging confirms the marker to be in target location. Rad/Path Correlation: Pending receipt of pathology report. Conclusion: Ultrasound-guided Vacuum-assisted biopsy with post-procedure CC and ML mammographic views with marker placement, Right: Inner at 3:00, 5 cm from nipple COMPLICATIONS: No complications were encountered while the patient was in our department. DISPOSITION The patient left our department in good condition with aftercare instructions and urged to contact us should any problem arise. The breast was compressed to achieve hemostasis. SUMMARY Right: Inner at 3:00, 5 cm from nipple: Ultrasound-guided vacuum-assisted biopsy of a mass with Tumark(R) Vision marker placement. PATHOLOGY Right: Inner at 3:00, 5 cm from nipple: Radiologist-Pathologist Correlation: Pending receipt of pathology report. ELECTRONICALLY SIGNED: Tommy Fowler M.D. on 07/22/2025 at 01:25:57 PM PT Interpreting Station ID: [id number]
--- NOTE | 2025-07-22 11:34 | PATH_ITS ---
[facility] Accession Number: [id number] No. of containers..01 Tissue . 01 Material submitted: . breast - RT BREAST . 01 Diagnosis: RIGHT BREAST, IMAGE-GUIDED BIOPSIES: Benign breast parenchyma with focal features consistent with benign fibroadenoma. Rare calcifications are present (dystrophic stromal calcifications and rare associated with benign ducts). Negative for in situ or invasive malignancy. [facility] 07/28/2025 1314 Local . 01 Comment: Please correlate with clinical and imaging studies to ensure that the area of concern has been adequately sampled. . As part of routine quality project manager, this case was also reviewed by Dr. Dr. Mona Espino, who agrees with the interpretation. . 01 Electronically signed: . Kishor Acuña MD, Pathologist NPI- [id number] . 01 Gross description: . Received [id number] container, labeled with the patient's name and labeled RT breast 11:09 a.m. The specimen consists nine yellow-acuña to acuña-sargent pieces of tissue which range in size from 0.3 x 0.2 x 0.2 cm to 1.8 x 0.3 x 0.2 cm. The specimen is entirely submitted in A1-A3. . Time in formalin not provided. Cold ischemic time cannot be calculated. Collection date per requisition: 07/22/2025. Possible collection per container: 11:09 a.m. Total fixation time: Approximately 37 hours. ([facility]:[id number]) /MRV 07/26/2025 1041 Local . 01 Pathologist provided ICD-10: R92.8 . 01 CPT . 258199 Specimen Comment: A courtesy copy of this report has been sent to [phone], [place] Specimen Comment: Health Pathology Performed at: [address] [address] [address] [address], [place], [place] [id number] MD Baltazar Rosas MD Phone: [phone]
== END ==
LOC: US 10:33
PROVIDERS: PCP Family Medicine; Referring Provider Family Medicine; Visit Provider Family Medicine
DX: R92.8 Other abnormal and inconclusive findings on diagnostic imaging of breast (principal); N63.15 Unspecified lump in the right breast, overlapping quadrants; R92.331 Mammographic heterogeneous density, right breast
CPT/HCPCS: 19083; 77065